=== PATIENT | male | born 1935 | race Caucasian/White ===

== ENCOUNTER 2021-04-02 19:38 | Observation (INO) | payer MEDICARE, SELFPAY ==
[2021-04-02] VITALS (7 sets, daily range): BP systolic 88–148; BP diastolic 53–78; PULSE 15–86; RESP 15–16; TEMP 36.9; O2SAT 97–99
--- NOTE | ~2021-04-02 | CT_ITS ---
EXAMINATION: CT brain wo con DATE: 04/02/2021 20:06 INDICATION: Altered mental status TECHNIQUE: Computed tomography (CT) of the head was performed without intravenous contrast. Sagittal and coronal reconstructions were performed. The mA was adjusted according to patient size. Iterative reconstruction technique was employed. The dose-length product was 681.00 mGy-cm. COMPARISON: head CT dated 11/27/2015 FINDINGS: No acute intracranial hemorrhage, acute infarction or abnormal extra axial fluid collection. There is mild scattered white matter hypoattenuation consistent with chronic small vessel ischemic disease. S ymmetric prominence of the sulci and ventricles consistent with moderate age-appropriate diffuse cere bral volume loss. No mass/mass effect. Changes of bilateral intraocular lens replacement. The orbits and mastoid air cells are normal. Mild mucosal thickening in the left maxillary sinus. No interval ch arnel in a couple likely benign small lucent lesions in the left parietal bone, the larger with post graduate intern al trabecular pattern suggesting hemangioma. Intracranial calcified cerebral atherosclerosis is noted . IMPRESSION: 1. No acute intracranial process. 2. Age-related changes including moderate diffuse volume loss and mild scattered white matter hypoatt enuation consistent with chronic small vessel ischemic disease. Reviewed, dictated and finalized at location A. IMPRESSION: 1. No acute intracranial process. 2. Age-related changes including moderate diffuse volume loss and mild scattere d white matter hypoattenuation consistent with chronic small vessel ischemic di sease.
--- NOTE | ~2021-04-02 | XR_ITS ---
EXAMINATION: XR chest 1V portable DATE: 04/02/2021 20:17 INDICATION: Altered mental status. TECHNIQUE: frontal view of the chest was obtained. COMPARISON: Chest radiograph dated 12/02/2015 FINDINGS: Unchanged calcified nodule at the right apex consistent with old granulomatous disease. No pulmonary edema, pleural effusion or pneumothorax. Cardiomegaly. Enlargement of the central pulmonary arteries consistent with pulmonary arterial hypertension. Stable appearance of superior mediastinal widening w ithout thickening of the right paratracheal stripe likely related to tortuosity of the great vessels arising from the aortic arch. Tortuous and atherosclerotic thoracic aorta. Severe left glenohumeral o steoarthritis. Partially visualized thoracolumbar posterior spinal fusion with bilateral vertical kaiden and screw fixation. IMPRESSION: 1. Cardiomegaly and enlargement of the central pulmonary arteries consistent with pulmonary arterial hypertension. Reviewed, dictated and finalized at location A. IMPRESSION: 1. Cardiomegaly and enlargement of the central pulmonary arteries consistent wi th pulmonary arterial hypertension.
--- NOTE | 2021-04-02 19:55 | ED.GENADULT ---
HPI - General Adult General Chief complaint: Altered Mental Status <Venu Deluna DO - Last Filed: 04/02/21 23:01> Stated complaint: AMS x 15 minutes <Venu Deluna DO - Last Filed: 04/02/21 23:01> Time Seen by Provider: 04/02/21 19:49 <Venu Deluna DO - Last Filed: 04/02/21 23:01> Source: RN notes reviewed <Venu Deluna DO - Last Filed: 04/02/21 23:01> History of Present Illness HPI narrative: Patient presents emergency department from home via EMS for altered mental status. Patient states that he took his evening meds this evening as well as a glass of wine he normally takes and sat down to watch the news. The states that when the rash initially looked over and the patient was slumped over and appeared to be unresponsive states she could not wake him up at that time called EMS. When EMS arrived the patient distally had a systolic blood pressure in the 80s which improved with 200 mL of fluid into the 120s per the patient and he has not been having problems with his blood pressure and medications have been being adjusted by his power plant technician Dr. Pedraza at [facility] patient denies any fevers or chills, chest pain abdominal pain nausea vomiting or any other symptoms <Venu Deluna DO - Last Filed: 04/02/21 23:01> Related Data Home medications: Home Medications Medication Instructions Recorded Confirmed atorvastatin 10 mg tablet 10 mg PO DAILY tablet 03/20/20 03/18/21 amlodipine 5 mg tablet 5 mg PO DAILY tablet 03/23/20 03/18/21 acetylcysteine (bulk) ea MISCELLANEOUS 03/02/21 apixaban 5 mg tablet 5 mg PO BID 03/02/21 03/18/21 clonidine HCl 0.3 mg tablet 0.3 mg PO BID tablet 03/02/21 03/18/21 coenzyme [id number] E 100 mg-100 cap PO 03/02/21 unit capsule glucosamine-chondroitin 1,500 mg ml PO 03/02/21 03/18/21 -1,200 mg/30 mL oral liquid grape seed extract 100 mg capsule 400 mg PO DAILY cap 03/02/21 03/18/21 memantine 10 mg tablet mg PO BID tablet 03/02/21 03/18/21 omega 4-ktb-hhm-fish oil 300 1 cap PO DAILY 03/02/21 mg-1,000 mg capsule,delayed release resveratrol 250 mg capsule mg PO 03/02/21 03/18/21 ropinirole 0.5 mg tablet 0.5 mg PO BID tablet 03/02/21 03/18/21 turmeric root extract 1,053 mg 1,076 mg PO DAILY 03/02/21 03/18/21 tablet vitamin E (dl, acetate) 400 unit 45 mg PO DAILY 03/02/21 03/18/21 capsule lisinopril 20 mg tablet 20 mg PO DAILY 03/17/21 03/18/21 <Venu Deluna DO - Last Filed: 04/02/21 23:01> Allergies/adverse reactions: Allergies Allergy/AdvReac Type Severity Reaction Status Date / Time No Known Allergies Allergy Unknown Verified 04/02/21 19:51 <Venu Deluna DO - Last Filed: 04/02/21 23:01> Review of Systems Review of Systems: Narrative: Gen.: Denies fevers or chills Eyes: Denies eye pain or visual change ENT: Denies congestion Respiratory: Denies shortness of breath or cough CV: Denies chest pain or palpitations GI: Denies abdominal pain nausea, emesis or diarrhea Musculoskeletal: Denies back pain or muscle pain Neuro: Reports unresponsive episode Skin: Denies rash Except as documented, all other systems reviewed and negative <Venu Deluna DO - Last Filed: 04/02/21 23:01> [facility] Past Medical History Medical History: Medical History Allergic rhinitis Alzheimer's dementia Atrial fibrillation BPH (benign prostatic hyperplasia) Chronic kidney disease, stage 3 Coronary artery disease Essential hypertension History of carotid artery disease MGUS (monoclonal gammopathy of unknown significance) Restless legs syndrome Sinus node dysfunction <Venu Deluna DO - Last Filed: 04/02/21 23:01> Surgical History Surgical History: Surgical History S/P carotid endarterectomy <DO Bonnie Hwang Last Filed: 04/02/21 23:01> Social History Social Histor
--- NOTE | 2021-04-02 20:04 | PC.NURSE ---
Pt in CT.
[2021-04-02 20:22] LABS: Basophils Absolute Auto 0.1 K/mm3 (0.0-0.1); Basophils Percent Auto 0.7 % (0.2-1.2); Eosinophils Absolute Auto 0.3 K/mm3 (0-0.3); Hematocrit 32.3 % (42.0-52.0); Hemoglobin 10.4 g/dL (14.0-18.0); Immature Granulocyte Absolute 0.04 K/mm3 (0.00-0.031); Immature Granulocyte Percent A 0.4 % (0-0.5); Lymphocytes Absolute Auto 0.91 K/mm3 (0.9-3.2); Lymphocytes Percent Auto 9.7 % (18.3-44.2); Mean Corpuscular HGB Conc 32.2 g/dl (32-36); Mean Corpuscular Hemoglobin 30.9 pg (26-34); Mean Corpuscular Volume 95.8 fl (80-100); Mean Platelet Volume 10.9 fl (7.4-10.4); Monocytes Absolute Auto 0.7 K/mm3 (0.1-0.6); Monocytes Percent Auto 7.2 % (2.6-8.5); Neutrophils Absolute Auto 7.5 K/mm3 (1.3-6.7); Platelet Count Result 206 k/mm3 (150-375); Red Blood Count 3.37 M/mm3 (4.6-6.20); Red Cell Distribution Width 14.2 % (11.5-14.5); White Blood Count 9.4 K/mm3 (4.5-10.0)
[2021-04-02 20:33] LABS: Alanine Aminotransferase 14 U/L (4-50); Albumin Level 3.6 g/dL (3.5-5.1); Alkaline Phosphatase 58 U/L (38-126); Anion Gap 9 mmol/L (8-16); Aspartate Amino Transferase 25 U/L (17-59); Bilirubin,Total 0.2 mg/dL (0.2-1.3); Blood Urea Nitrogen 21 mg/dL (9-20); Calcium 8.8 mg/dL (8.4-10.2); Carbon Dioxide 22 mmol/L (22-30); Chloride 109 mmol/L (98-107); Estimated CRCL calculation 43 ml/min; Estimated Glomerular Filt Rate 53; Ethanol < 10 mg/dL (<10); Glucose 96 mg/dL (75-110); Potassium 4.3 mmol/L (3.4-5.0); Sodium 140 mmol/L (137-145)
[2021-04-02 20:35] LABS: INR 1.3; Prothrombin Time 16.3 Seconds (11.1-14.7)
--- NOTE | 2021-04-02 20:35 | PC.NURSE ---
Pt made aware of need for urine sample. Urinal at bedside. Call light within reach.
[2021-04-02 20:48] LABS: Troponin I 0.148 ng/mL (0.000-0.034)
[2021-04-02 20:55] LABS: Add Urine Microscopic? YES; Appearance Urine Cloudy (Clear); Bilirubin Urine Negative (Negative); Blood Urine Negative (Negative); Color Urine Yellow (Yellow); Glucose Urine UA Negative (Negative); Ketones Urine Negative (Negative); Leukocyte Esterase Ur Negative LEU/UL (Negative); Mucus Urine Rare /lpf; Nitrate Urine Negative (Negative); Protein Urine 1+ mg/dL (Negative); RBC Urine 0-2 /hpf (0-2); Specific Grav Ur 1.013 (1.001-1.035); Squamous Epithelial Cell Urine Occasional /hpf (Few); Urobilinogen Urine Negative mg/dL (<2.0); WBC Urine 0-3 /hpf
[2021-04-02] MEDS: SODIUM CHLORIDE 0.9% IV 500 ML 999 ML IV CONT (21:35)
--- NOTE | 2021-04-02 22:39 | PC.NURSE ---
Pt was accepted to [facility]. No beds available at this time for admission. Unsure of when a bed may be available, but will not be tonight.
--- NOTE | 2021-04-02 22:41 | PC.NURSE ---
RUIZ FROM [facility] CALLED AND SAID THAT PATIENT HAS BEEN ACCEPTED AT [facility]. ACCEPTING DOCTOR IS DR. FLORES. WAITING FOR BED. DEFINITELY WILL NOT BE TONIGHT.
[2021-04-02 23:59] LABS: Troponin I 0.118 ng/mL (0.000-0.034)
[2021-04-03 00:43] VITALS: BP 134/55; PULSE 40; RESP 14; O2SAT 99
[2021-04-03 02:21] VITALS: BP 126/60; PULSE 42; RESP 14; O2SAT 99
[2021-04-03 03:49] LABS: Troponin I 0.071 ng/mL (0.000-0.034)
[2021-04-03 04:19] VITALS: BP 145/68; PULSE 41; RESP 18; O2SAT 96
--- NOTE | 2021-04-03 05:00 | PC.NURSE ---
0440: SPOKE WITH RUBIO AT [facility]. NO FLOOR BEDS AVAILABLE FOR AT LEAST 24 HOURS.
[2021-04-03 05:30] VITALS: BP 147/62; PULSE 45; RESP 16; TEMP 36.4; O2SAT 95; BMI 29.5
[2021-04-03 05:38] VITALS: BMI 29.5
--- NOTE | 2021-04-03 05:41 | ADMGEN ---
This patient, Robbin Newby, was admitted to 3 [facility] Surg Room 303-01. Patient/family oriented to hospital policies and general routines including ID bracelet, bed and alarms, visiting hours, pain management, procedures, bathroom and other care routines, personal items, smoking policy, room service/diet, and visiting hours. Information on how to activate the Rapid Response Team has been discussed. Patient/Family are encouraged to report perceived risks to care and to ask questions if they do not understand what they are told or what they should do.
[2021-04-03 08:00] VITALS: PULSE 51
[2021-04-03 12:00] VITALS: PULSE 53
--- NOTE | 2021-04-03 12:56 | PM.SD2 ---
Same Day Admit/Disch: HPI History of Present Illness Chief complaint: Syncope, Elevated Troponin Narrative: Robbin Newby is a 85 year old male who was at his usual state of mind yesterday evening when he took his evening meds while watching TV and also was also drinking a glass of wine which he normally does. His then saw him slumped over and unresponsive confused difficult to wake up for which EMS was called. When EMS arrived his blood pressure was noted to be in 80s and was given a fluid bolus with immediate improvement. he also was back to his normal self with his blood pressure improvement. He was then brought into the ER. EKG was done which showed sinus bradycardia with no acute ST-T changes suggestive of ischemia. His further workup revealed mild anemia with hemoglobin of 10.4 and elevated troponin at 0.148. He however denied any chest pain or shortness of breath. He was planned to be transferred to [facility] however their nor beds available last night and hence was admitted to the hospital while waiting for the transfer. [facility] Past Medical History Medical History Allergic rhinitis Alzheimer's dementia Atrial fibrillation BPH (benign prostatic hyperplasia) Chronic kidney disease, stage 3 Coronary artery disease Essential hypertension History of carotid artery disease MGUS (monoclonal gammopathy of unknown significance) Restless legs syndrome Sinus node dysfunction Surgical History Surgical History S/P carotid endarterectomy Social History Social History Smoking packs per day: 2.5 Smoking cigarettes per day: 50.0 Years smoked: 20 Smoking pack-years: 50.00 Smoking status: Former smoker Tobacco type: cigarettes Second hand tobacco smoke exposure: No Smoking end date: 09/19/81 Alcohol intake: current Drinks per week: 5 Substance use: never Substance use type: does not use Spiritual care concerns: No Same Day Admit/Disch: Med Pre-admit Medications Home Medications Medication Instructions Recorded Confirmed Type atorvastatin 10 mg tablet 10 mg PO DAILY tablet 03/20/20 04/03/21 History amlodipine 5 mg tablet 5 mg PO DAILY tablet 03/23/20 04/03/21 History finasteride 5 mg tablet 5 mg PO DAILY #90 tablet 02/17/21 04/03/21 Rx apixaban 5 mg tablet 5 mg PO BID 03/02/21 04/03/21 History clonidine HCl 0.3 mg tablet 0.3 mg PO BID tablet 03/02/21 04/03/21 History glucosamine-chondroitin 1,500 mg 30 ml PO BID 03/02/21 04/03/21 History -1,200 mg/30 mL oral liquid grape seed extract 100 mg capsule 400 mg PO HS cap 03/02/21 04/03/21 History memantine 10 mg tablet 10 mg PO BID tablet 03/02/21 04/03/21 History resveratrol 250 mg capsule 4,000 mg PO BID 03/02/21 04/03/21 History ropinirole 0.5 mg tablet 0.5 mg PO BID tablet 03/02/21 04/03/21 History vitamin E (dl, acetate) 400 unit 45 mg PO DAILY 03/02/21 04/03/21 History capsule lisinopril 20 mg tablet 20 mg PO DAILY 03/17/21 04/03/21 History Acetyl L-Carnitine 1,200 mg PO DAILY 04/03/21 04/03/21 History Mature Adult Century 1 tablet PO DAILY 04/03/21 04/03/21 History F-Ojwbha-E-Cysteine 1 cap BYMOUTH HS 04/03/21 04/03/21 History alpha lipoic acid 600 mg PO DAILY 04/03/21 04/03/21 History ascorbic acid (vitamin C) 1,000 mg PO DAILY 04/03/21 04/03/21 History magnesium 500 mg PO DAILY 04/03/21 04/03/21 History mecobalamin (vitamin B12) 1,000 mcg PO DAILY 04/03/21 04/03/21 History tamsulosin 0.4 mg PO HS 04/03/21 04/03/21 History tyrosine [L-Tyrosine] 500 mg PO DAILY 04/03/21 04/03/21 History Exam Narrative: Exam Narrative: GENERAL: The patient is well developed, not in acute distress HEENT: Nonicteric sclerae, PERRLA, EOMI. Oropharynx clear. Moist mucous membranes. Conjunctivae appear well perfused. CHEST: Chest wall is nontender. HEART: sinus bradycardia, teleme
== END 2021-04-03 13:55 | disposition home or self-care (01) ==
LOC: ANHED 04-03 04:16 → ANH3MEDSUR 04-03 12:21
PROVIDERS: Emergency Medicine; Admitting Provider Internal Medicine; Emergency Provider Emergency Medicine; PCP Family Medicine; Visit Provider Internal Medicine
DX: R55 Syncope and collapse (principal); R77.8 Other specified abnormalities of plasma proteins; G30.9 Alzheimer's disease, unspecified; F02.80 Dementia in other diseases classified elsewhere, unspecified severity, without behavioral disturbance, psychotic disturbance, mood disturbance, and anxiety; I95.9 Hypotension, unspecified; I48.91 Unspecified atrial fibrillation; I12.9 Hypertensive chronic kidney disease with stage 1 through stage 4 chronic kidney disease, or unspecified chronic kidney disease; N18.30 Chronic kidney disease, stage 3 unspecified; I49.5 Sick sinus syndrome; I25.10 Atherosclerotic heart disease of native coronary artery without angina pectoris; N40.0 Benign prostatic hyperplasia without lower urinary tract symptoms; D47.2 Monoclonal gammopathy; G25.81 Restless legs syndrome; Z87.891 Personal history of nicotine dependence; Z79.01 Long term (current) use of anticoagulants; Z79.899 Other long term (current) drug therapy
CPT/HCPCS: 36415; 70450; 71045; 80053; 80307; 81001; 84484; 85025; 85610; 85730; 96360; 99285; G0378; J7040

== ENCOUNTER 2022-04-12 12:09 | Outpatient (RCR) | payer MEDICARE, SELFPAY ==
[2022-04-12 13:19] VITALS: BP 113/54; PULSE 59; TEMP 35.8; O2SAT 99
[2022-04-12] MEDS: ACETAMINOPHEN 325 MG TABLET 650 MG PO (13:20)
[2022-04-12] MEDS: diphenhydrAMINE HCl CAP 25 MG CAPSULE PO (13:21)
[2022-04-12] MEDS: FAMOTIDINE 20 MG TABLET PO (13:21)
[2022-04-12] MEDS: BEBTELOVIMAB 175 MG/2 ML VIAL IV PUSH (13:42)
[2022-04-12 14:21] VITALS: BP 110/50; PULSE 60; O2SAT 99
== END 2022-04-12 16:00 ==
LOC: AMCINF 12:09
PROVIDERS: PCP Family Medicine; Referring Provider Family Medicine; Visit Provider Internal Medicine Hematology & Oncology
DX: U07.1 COVID-19 (principal); I10 Essential (primary) hypertension; I25.10 Atherosclerotic heart disease of native coronary artery without angina pectoris
CPT/HCPCS: A9270; M0222; Q0222

== ENCOUNTER 2023-02-14 16:41 | Emergency (ER) | payer MEDICARE, SELFPAY ==
[2023-02-14] VITALS (15 sets, daily range): BP systolic 118–174; BP diastolic 52–85; PULSE 53–66; RESP 15–33; TEMP 36.6; O2SAT 95–100
--- NOTE | ~2023-02-14 | XR_ITS ---
EXAMINATION: XR chest 1V portable DATE: 02/14/2023 16:58 INDICATION: Near syncopal event with lightheadedness and dizziness TECHNIQUE: frontal view of the chest was obtained. COMPARISON: Chest radiograph dated 04/02/2021 FINDINGS: Calcified right apical nodule consistent with old granulomatous disease. No other airspace opacities, pulmonary edema, pleural effusion or pneumothorax. Cardiomegaly. Tortuous thoracic aorta. Enlargemen t of the central pulmonary arteries which can be seen with pulmonary arterial hypertension. Left pect oral implantable quality assurance monitor chassis. Bilateral vertical kaiden and pedicle screw fixation for posterior spi nal fusion beginning in the lower thoracic spine and extending beyond the caudal margin of the field- of-view. IMPRESSION: 1. . Dramatically with enlargement of the central pulmonary arteries consistent with pulmonary arteri al hypertension. Reviewed, dictated and finalized at location A. IMPRESSION: 1. . Dramatically with enlargement of the central pulmonary arteries consistent with pulmonary arterial hypertension.
--- NOTE | 2023-02-14 16:46 | ECG_ITS ---
Measurements Intervals [place] Rate: 56 P: 65 TN: 282 QRS: 117 QRSD: 118 T: 55 QT: 410 QTc: 398 Interpretive Statements SINUS BRADYCARDIA WITH FIRST DEGREE AV BLOCK ATRIAL PREMATURE COMPLEX RIGHT AXIS DEVIATION INTRAVENTRICULAR CONDUCTION DELAY CANNOT RULE OUT SEPTAL INFARCT, AGE INDETERMINATE BASELINE ARTIFACT- AVR, AVL ABNORMAL ECG NO PREVIOUS ECG AVAILABLE FOR COMPARISON Electronically Signed On 02-14-2023 21:19:16 CDT by Octavio Castro D.O.
--- NOTE | 2023-02-14 16:46 | ED.SYNCOPE ---
HPI - Syncope General Chief Complaint: Syncope Stated Complaint: syncopal episode Time Seen by Provider: 02/14/23 16:45 Source: patient, family and EMS Mode of arrival: EMS Limitations: no limitations History of Present Illness HPI narrative: Patient is 87 years old white male came from home by ambulance because of syncope. Patient just finished his meal, turned around to get something, within 30 seconds patient slumped over, unresponsive for 10 minutes. Patient became responsive on the EMT stretcher. He is telling me that before blacking out felt like he is going to blackout and did not feel well. He denied any chest pain or shortness of breath at that time. Patient had similar symptoms 2 years ago and currently have loop recorder for the last 2 years. Currently patient is asymptomatic, denies any fever, chills, nausea, vomiting, chest pain, shortness of breath, back pain, headache, focal neurodeficit. Patient Eliquis for atrial fibrillation. His school aide and electrophysiological study physician at [facility]. The patient and his family requested to be transferred to [facility]. Related Data Home Medications Medication Instructions Recorded Confirmed atorvastatin 10 mg tablet 10 mg PO DAILY 03/20/20 11/03/22 amlodipine 5 mg tablet 5 mg PO DAILY 03/23/20 11/03/22 apixaban 5 mg tablet (Eliquis) 5 mg PO BID 03/02/21 11/03/22 glucosamine-chondroitin 1,500 mg 30 ml PO BID 03/02/21 11/03/22 -1,200 mg/30 mL oral liquid memantine 10 mg tablet 10 mg PO BID 03/02/21 11/03/22 resveratrol 250 mg capsule 4,000 mg PO BID 03/02/21 11/03/22 vitamin E (dl, acetate) 180 mg 45 mg PO DAILY 03/02/21 11/03/22 (400 unit) capsule Acetyl L-Carnitine 1,200 mg PO DAILY 04/03/21 11/03/22 Mature Adult Century 1 tablet PO DAILY 04/03/21 11/03/22 H-Ranqwg-Z-Cysteine 1 cap BYMOUTH 04/03/21 11/03/22 alpha lipoic acid 600 mg tablet 600 mg PO DAILY 04/03/21 11/03/22 ascorbic acid (vitamin C) 1,000 mg PO DAILY 04/03/21 11/03/22 magnesium 500 mg PO DAILY 04/03/21 11/03/22 mecobalamin (vitamin B12) 1,000 1,000 mcg PO DAILY 04/03/21 11/03/22 mcg chewable tablet tyrosine 500 mg tablet 500 mg PO DAILY 04/03/21 11/03/22 turmeric root extract 1,053 mg 1,076 mg PO DAILY 04/24/21 11/03/22 tablet zinc 50 mg tablet 50 mg PO DAILY 04/24/21 11/03/22 lisinopril 20 mg tablet 40 mg PO DAILY 08/10/21 11/03/22 Allergies Allergy/AdvReac Type Severity Reaction Status Date / Time No Known Allergies Allergy Unknown Verified 11/03/22 14:57 Review of Systems Review of Systems: All systems reviewed & are unremarkable except as noted in HPI and below PMFSH Past Medical History Medical History Allergic rhinitis Alzheimer's dementia Atrial fibrillation BPH (benign prostatic hyperplasia) Chronic kidney disease, stage 3 Coronary artery disease Essential hypertension History of carotid artery disease MGUS (monoclonal gammopathy of unknown significance) Muscle cramp, nocturnal Restless legs syndrome Sinus node dysfunction Stasis dermatitis of both legs Surgical History Surgical History S/P carotid endarterectomy Social History Social History Smoking packs per day: 2.5 Smoking cigarettes per day: 50.0 Years smoked: 20 Smoking pack-years: 50.00 Smoking status: Former smoker Tobacco type: cigarettes Second hand tobacco smoke exposure: No Smoking end date: 09/19/81 Alcohol intake: current Drinks per week: 5 Substance use: never Substance use type: does not use Lack of Transportation: No Lack of Food: Never True Current Housing: I Have Housing Concerned About Future Housing: No Difficulty Paying Gas/Electric Bills: No Difficulty Paying for Meds: No Currently Unemployed: No Difficulty w/ Childcare or Family Care: No Living arrangements: with family
[2023-02-14 16:47] LABS: Glucose Point of Care 140 mg/dl (65-105)
[2023-02-14] MEDS: SODIUM CHLORIDE 0.9% IV 1,000 ML 999 ML IV CONT (16:52)
[2023-02-14 16:56] LABS: Basophils Absolute Auto 0.1 K/mm3 (0.0-0.1); Basophils Percent Auto 0.9 % (0.2-1.2); Eosinophils Absolute Auto 0.4 K/mm3 (0-0.3); Eosinophils Percent Auto 5.2 % (0-4.4); Hematocrit 31.5 % (42.0-52.0); Hemoglobin 10.6 g/dL (14.0-18.0); Immature Granulocyte Absolute 0.02 K/mm3 (0.00-0.031); Immature Granulocyte Percent A 0.3 % (0-0.5); Lymphocytes Absolute Auto 1.09 K/mm3 (0.9-3.2); Lymphocytes Percent Auto 14.2 % (18.3-44.2); Mean Corpuscular HGB Conc 33.7 g/dl (32-36); Mean Corpuscular Hemoglobin 32.4 pg (26-34); Mean Corpuscular Volume 96.3 fl (80-100); Mean Platelet Volume 11.2 fl (7.4-10.4); Monocytes Absolute Auto 0.5 K/mm3 (0.1-0.6); Monocytes Percent Auto 6.8 % (2.6-8.5); Neutrophils Absolute Auto 5.6 K/mm3 (1.3-6.7); Neutrophils Percent Auto 72.6 % (45.5-73.1); Platelet Count Result 175 k/mm3 (150-375); Red Blood Count 3.27 M/mm3 (4.6-6.20); White Blood Count 7.7 K/mm3 (4.5-10.0)
[2023-02-14 17:06] LABS: Alanine Aminotransferase 18 U/L (6-50); Albumin Level 3.1 g/dL (3.5-5.1); Alkaline Phosphatase 60 U/L (38-126); Anion Gap 5 mmol/L (8-16); Aspartate Amino Transferase 25 U/L (17-59); Bilirubin,Total 0.3 mg/dL (0.2-1.3); Blood Urea Nitrogen 35 mg/dL (9-20); Calcium 7.4 mg/dL (8.4-10.2); Carbon Dioxide 21 mmol/L (22-30); Chloride 109 mmol/L (98-107); Estimated CRCL calculation 31 ml/min; Estimated Glomerular Filt Rate 41; Glucose 132 mg/dL (65-110); Potassium 4.6 mmol/L (3.4-5.0); Sodium 135 mmol/L (137-145)
[2023-02-14 17:28] LABS: Troponin I < 0.012 ng/mL (0.000-0.034)
== END 2023-02-14 19:44 | disposition short-term general hospital (02) ==
PROVIDERS: Emergency Provider Emergency Medicine; PCP Family Medicine
DX: R55 Syncope and collapse (principal); G30.9 Alzheimer's disease, unspecified; F02.80 Dementia in other diseases classified elsewhere, unspecified severity, without behavioral disturbance, psychotic disturbance, mood disturbance, and anxiety; I48.91 Unspecified atrial fibrillation; I25.10 Atherosclerotic heart disease of native coronary artery without angina pectoris; I10 Essential (primary) hypertension; I87.2 Venous insufficiency (chronic) (peripheral); N40.0 Benign prostatic hyperplasia without lower urinary tract symptoms; G25.81 Restless legs syndrome; Z87.891 Personal history of nicotine dependence; R00.1 Bradycardia, unspecified; I44.0 Atrioventricular block, first degree; I49.1 Atrial premature depolarization; I45.9 Conduction disorder, unspecified; R94.31 Abnormal electrocardiogram [ECG] [EKG]; I28.9 Disease of pulmonary vessels, unspecified; I51.7 Cardiomegaly
CPT/HCPCS: 36415; 71045; 80053; 82948; 84484; 85025; 93005; 96360; 99285; J7030

== ENCOUNTER 2023-06-10 16:59 | Outpatient (CLI) | payer MEDICARE, SELFPAY ==
--- NOTE | ~2023-06-10 | XR_ITS ---
XR hand RT min 3V DATE: 06/10/2023 17:28 INDICATION: Injury TECHNIQUE: 3 views COMPARISON: None FINDINGS: There is osteopenia. There is severe osteoarthritic change at the radiocarpal, first carpometacarpal and third metacarpoph alangeal joints. Moderately prominent osteophyte is at the second metacarpophalangeal joint. There is prominent scapholunate dissociation. No recent fracture or dislocation is evident. IMPRESSION: Osteopenia Polyarticular osteoarthritis Prominent scapholunate dissociation Reviewed, dictated and finalized at location A.
--- NOTE | ~2023-06-10 | XR_ITS ---
XR wrist RT min 3V DATE: 06/10/2023 17:28 INDICATION: Right wrist injury TECHNIQUE: 4 views COMPARISON: None FINDINGS: Diffuse osteopenia. Severe radiocarpal osteoarthritic change. There is prominent scapholunate dissociation at the capitat e articulating with the distal radius. Severe osteophytic change at the first carpometacarpal joint. No recent fracture or dislocation is noted. No periosteal reaction or bone destruction. IMPRESSION: Osteopenia Prominent scapholunate dissociation Polyarticular osteoarthritis Reviewed, dictated and finalized at location A.
== END 2023-06-10 17:00 | disposition home or self-care (01) ==
PROVIDERS: PCP Family Medicine; Visit Provider Family Medicine
DX: S69.91XA Unspecified injury of right wrist, hand and finger(s), initial encounter (principal); X58.XXXA Exposure to other specified factors, initial encounter; M85.831 Other specified disorders of bone density and structure, right forearm; M19.031 Primary osteoarthritis, right wrist; M85.841 Other specified disorders of bone density and structure, right hand; M19.041 Primary osteoarthritis, right hand
CPT/HCPCS: 73110; 73130

== ENCOUNTER 2023-11-11 13:02 | Observation (INO) | payer MEDICARE, SELFPAY ==
[2023-11-11] VITALS (17 sets, daily range): BP systolic 81–170; BP diastolic 47–99; PULSE 53–83; RESP 12–20; TEMP 36.3–36.6; O2SAT 91–100; BMI 28.3
--- NOTE | ~2023-11-11 | XR_ITS ---
Portable chest x-ray Comparison: 02/14/2023 Clinical History: Altered mental status Findings: Lungs are clear, without focal consolidation or pleural effusion. Cardiomediastinal silho uette is stable, with possible core. Stable thoracolumbar spinal fixation hardware. Impression: No acute abnormality seen. Reviewed, dictated and finalized at [facility]. ER OPERATOR Impression: No acute abnormality seen.
--- NOTE | ~2023-11-11 | CT_ITS ---
EXAMINATION: CT brain wo con INDICATION: Altered mental status, left-sided facial droop COMPARISON: 04/03/2021 TECHNIQUE: Standard unenhanced head CT. The dose-length product (DLP) was 681.00 mGy-cm. The mA was a djusted according to patient size. Iterative reconstruction technique was employed. FINDINGS: No acute intraparenchymal hemorrhage. No evidence of mass lesion. No evidence of acute infa rction. There is mild periventricular and subcortical hypodensity probably related to small vessel is chemic disease. There is mild prominence of the sulci and ventricles related to cerebral atrophy. Int racranial calcified cerebral atherosclerosis is noted. No extra-axial collections. No mass effect or midline shift. The orbits and soft tissues are unremarkable. The visualized sinuses and mastoid air c ells are well aerated. IMPRESSION: 1. No acute intracranial abnormality. 2. Age related findings. Reviewed, dictated and finalized at location B. R BLENDER
--- NOTE | ~2023-11-11 | MR_ITS ---
EXAMINATION: MR brain/brain stem wo/w con DATE: 11/13/2023 13:47 INDICATION: Patient unresponsive. TECHNIQUE: Magnetic resonance imaging (MRI) of the brain and brainstem was performed without and with 17 cc MultiHance intravenous contrast. Sequences included sagittal and axial T1-weighted SE, axial d iffusion-weighted FS SE, axial T2*-weighted GRE, axial T2-weighted FLAIR Propeller, and axial T2-weig hted Propeller. Apparent diffusion coefficient (ADC) maps were created. COMPARISON: CT dated 11/11/2023. FINDINGS: Generalized atrophy. No acute hemorrhage, infarction, mass or mass effect. No abnormal cont rast enhancement. There are scattered moderate periventricular and subcortical white matter changes, most likely related to small vessel ischemic disease (microangiopathy). Structures of the posterior f angela including 7/8th cranial nerve complexes are normal. Paranasal sinuses are unremarkable. Orbits a re symmetric without disconjugate gaze. IMPRESSION: 1. No acute intracranial abnormality. 2: Chronic age-related findings. Reviewed, dictated and finalized at location A. GATION TAX ASSESSOR COLLECTOR
--- NOTE | 2023-11-11 13:27 | ECG_ITS ---
Measurements Intervals [place] Rate: 65 P: 9 CO: 271 QRS: -63 QRSD: 107 T: 1 QT: 407 QTc: 425 Interpretive Statements SINUS RHYTHM WITH FIRST DEGREE AV BLOCK WITH FREQUENT SUPRAVENTRICULAR PREMATURE COMPLEXES LEFT ANTERIOR FASCICULAR BLOCK [QRS AXIS <= -45, QR IN I, RS IN II] ANTEROSEPTAL MYOCARDIAL INFARCTION , OF INDETERMINATE AGE [40+ ms Q WAVE IN V1-V4] ABNORMAL ECG COMPARED TO ECG 02/14/2023 16:42:37 SINUS RHYTHM NOW PRESENT LEFT ANTERIOR FASCICULAR BLOCK NOW PRESENT Electronically Signed On 11-12-2023 14:34:49 CRITICAL CARE NURSE PRACTITIONER by Ok Barnhart M.D.
[2023-11-11 15:03] LABS: Basophils Percent Auto 0.4 % (0.2-1.2); Hematocrit 29.5 % (42.0-52.0); Hemoglobin 9.4 g/dL (14.0-18.0); Immature Granulocyte Absolute 0.04 K/mm3 (0.00-0.031); Immature Granulocyte Percent A 0.4 % (0-0.5); Lymphocytes Absolute Auto 0.44 K/mm3 (0.9-3.2); Lymphocytes Percent Auto 4.7 % (18.3-44.2); Mean Corpuscular HGB Conc 31.9 g/dl (32-36); Mean Corpuscular Hemoglobin 31.4 pg (26-34); Mean Corpuscular Volume 98.7 fl (80-100); Mean Platelet Volume 11.3 fl (7.4-10.4); Monocytes Absolute Auto 0.9 K/mm3 (0.1-0.6); Monocytes Percent Auto 9.9 % (2.6-8.5); Neutrophils Absolute Auto 7.9 K/mm3 (1.3-6.7); Neutrophils Percent Auto 84.6 % (45.5-73.1); Platelet Count Result 219 k/mm3 (150-375); Red Blood Count 2.99 M/mm3 (4.6-6.20); Red Cell Distribution Width 14.6 % (11.5-14.5); White Blood Count 9.4 K/mm3 (4.5-10.0)
[2023-11-11 15:14] LABS: INR 1.8; Prothrombin Time 21.8 Seconds (11.1-14.7)
[2023-11-11 15:15] LABS: Partial Thromboplastin Time 40.9 SECONDS (22.3-36.8)
--- NOTE | 2023-11-11 15:19 | ED.AMS ---
HPI - Altered Mental Status General Chief Complaint: Altered Mental Status Stated Complaint: AMS Time Seen by Provider: 11/11/23 14:51 Source: family History of Present Illness HPI narrative: PATIENT IS 88 YEARS OLD WHITE MALE CAME TO THE EMERGENCY ROOM BY PRIVATE CAR WITH HIS IS TELLING ME THAT PATIENT WANT HIS FAMILY PHYSICIAN TODAY FOR HER YEARLY CHECKUP, NO SYMPTOMS, HAND WAS LOOK WEAKER THAN USUAL, UNABLE TO MANAGE USING HIS WALKER, SLOWER WALKING WITH HIS WALKER THAN USUAL, AT THE OFFICE WAS UNRESPONSIVE DOES NOT FOLLOW COMMANDS, WHILE SITTING ON THE CHAIR, LATER WAS ABLE TO WAKE UP AND DOES NOT RECOGNIZE HIS . HISTORY OF ALZHEIMER'S, HYPERTENSION, HYPERLIPIDEMIA ATRIAL FIBRILLATION ON ELIQUIS Related Data Home Medications Medication Instructions Recorded Confirmed atorvastatin 10 mg tablet 10 mg PO DAILY 03/20/20 11/11/23 apixaban 5 mg tablet (Eliquis) 5 mg PO BID 03/02/21 11/11/23 glucosamine-chondroitin 1,500 mg 30 ml PO BID 03/02/21 11/11/23 -1,200 mg/30 mL oral liquid memantine 10 mg tablet 10 mg PO BID 03/02/21 11/11/23 vitamin E (dl, acetate) 180 mg 45 mg PO DAILY 03/02/21 11/11/23 (400 unit) capsule Acetyl L-Carnitine 1,200 mg PO DAILY 04/03/21 11/11/23 Mature Adult Century 1 tablet PO DAILY 04/03/21 11/11/23 alpha lipoic acid 600 mg tablet 600 mg PO DAILY 04/03/21 11/11/23 ascorbic acid (vitamin C) 500 mg PO BID 04/03/21 11/11/23 tyrosine 500 mg tablet 500 mg PO DAILY 04/03/21 11/11/23 zinc 50 mg tablet 50 mg PO DAILY 04/24/21 11/11/23 lisinopril 20 mg tablet 40 mg PO DAILY 08/10/21 11/11/23 ropinirole 0.5 mg tablet 0.5 mg PO TID 09/30/23 11/11/23 trazodone 50 mg tablet 50 mg PO HS 11/11/23 11/11/23 Allergies Allergy/AdvReac Type Severity Reaction Status Date / Time oxycodone Allergy Hallucinati Verified 11/11/23 11:26 ng Review of Systems Review of Systems: ROS unobtainable: Yes unobtainable due to mental status PMFSH Past Medical History Medical History Allergic rhinitis Alzheimer's dementia Atrial fibrillation BPH (benign prostatic hyperplasia) Chronic kidney disease, stage 3 Coronary artery disease Essential hypertension History of carotid artery disease MGUS (monoclonal gammopathy of unknown significance) Muscle cramp, nocturnal Restless legs syndrome Sinus node dysfunction Stasis dermatitis of both legs Surgical History Surgical History S/P carotid endarterectomy Social History Social History Smoking packs per day: 2.5 Smoking cigarettes per day: 50.0 Years smoked: 20 Smoking pack-years: 50.00 Smoking status: Former smoker Alcohol intake: never Drinks per week: 5 Substance use: never Substance use type: does not use Lack of Transportation: No Lack of Food: Never True Current Housing: I Have Housing Concerned About Future Housing: No Difficulty Paying Gas/Electric Bills: No Difficulty Paying for Meds: No Currently Unemployed: No Difficulty w/ Childcare or Family Care: No Living arrangements: with family Occupation/Education: retired Gender identity (if verbalized by the patient): Male Sexual Orientation (if Verbalized by the Patient): Straight or Heterosexual Spiritual care concerns: No Agree to blood products: Yes Exam Narrative: GENERAL APPEARANCE: WELL-DEVELOPED, WELL-NOURISHED, SLEEPING, AROUSABLE SKIN: NORMAL COLOR HEAD: NORMOCEPHALIC, NONTRAUMATIC EYES: CLEAR CONJUNCTIVA ENT: OROPHARYNX NORMAL, EARS NORMAL, NOSE NORMAL NECK: SUPPLE, NONTENDER CHEST AND RESPIRATORY: AIRWAY PATENT, NO RESPIRATORY DISTRESS, NO ACCESSORY MUSCLE USE HEART: REGULAR RATE/RHYTHM ABDOMEN: SOFT, NONTENDER, NO ORGANOMEGALY, QUIET BOWEL SOUNDS VASCULAR: NORMAL PERIPHERAL PULSES, NORMAL CAPILLARY REFILL. MUSCULOSKELETAL: NORMAL RANGE OF MOTION, NONTENDER BACK NEUROLOGIC: ALERT A
[2023-11-11 15:20] LABS: Alanine Aminotransferase 14 U/L (6-50); Albumin Level 3.6 g/dL (3.5-5.1); Alkaline Phosphatase 94 U/L (38-126); Anion Gap 8 mmol/L (8-16); Aspartate Amino Transferase 23 U/L (17-59); Bilirubin,Total 0.5 mg/dL (0.2-1.3); Blood Urea Nitrogen 36 mg/dL (9-20); Calcium 8.8 mg/dL (8.4-10.2); Carbon Dioxide 24 mmol/L (22-30); Chloride 102 mmol/L (98-107); Estimated CRCL calculation 28 ml/min; Estimated Glomerular Filt Rate 36; Glucose 120 mg/dL (65-110); Potassium 4.4 mmol/L (3.4-5.0); Sodium 134 mmol/L (137-145)
[2023-11-11 15:35] LABS: Troponin I 0.062 ng/mL (0.000-0.034)
[2023-11-11] MEDS: SODIUM CHLORIDE 0.9% IV 2,800 ML/1,000 ML BAG 999 ML IV CONT ×3 (16:16→17:50)
[2023-11-11 16:34] LABS: CRP 3.7 mg/dL (<1.0)
--- NOTE | 2023-11-11 17:49 | ECG_ITS ---
Measurements Intervals [place] Rate: 84 P: 82 IN: 259 QRS: -67 QRSD: 115 T: 71 QT: 376 QTc: 447 Interpretive Statements SINUS RHYTHM WITH FIRST DEGREE AV BLOCK WITH FREQUENT SUPRAVENTRICULAR PREMATURE COMPLEXES LEFT ANTERIOR FASCICULAR BLOCK [QRS AXIS <= -45, QR IN I, RS IN II] POSSIBLE ANTERIOR MYOCARDIAL INFARCTION , OF INDETERMINATE AGE [30 ms Q WAVE IN V3/V4, OR R < 0.2 mV IN V4] ABNORMAL ECG COMPARED TO ECG 11/11/2023 14:49:49 NO SIGNIFICANT CHANGES Electronically Signed On 11-12-2023 14:36:25 WOOD PREPARATION SUPERVISOR by Ok Barnhart M.D.
[2023-11-11 18:45] LABS: Troponin I 0.052 ng/mL (0.000-0.034)
--- NOTE | 2023-11-11 19:36 | PC.NURSE ---
Report given to FLORIAN Lambert.
--- NOTE | 2023-11-11 19:45 | PC.NURSE ---
this rn assumed care of patient. this rn took patient report from daryl wetzel.
[2023-11-11 19:55] LABS: Appearance Urine Cloudy (Clear); Bacteria Urine 4+ /hpf; Bilirubin Urine Negative (Negative); Blood Urine Negative (Negative); Color Urine Yellow (Yellow); Glucose Urine UA Negative (Negative); Ketones Urine Negative (Negative); Leukocyte Esterase Ur Trace LEU/UL (Negative); Nitrate Urine Negative (Negative); Non Pathogenic Casts 0-2; Protein Urine 1+ mg/dL (Negative); RBC Urine 0-2 /hpf (0-2); Specific Grav Ur 1.014 (1.001-1.035); Squamous Epithelial Cell Urine None seen /hpf (Few); Urobilinogen Urine 0.2 mg/dL (<2.0); WBC Urine 21-50 /hpf
--- NOTE | 2023-11-11 19:56 | PC.NURSE ---
this rn took patient report from daryl wetzel. this rn assumed care of patient.
[2023-11-11 20:00] LABS: Add Urine Microscopic? YES
--- NOTE | 2023-11-11 20:34 | PM.IMHP ---
H&P: HPI History of Present Illness Date/Time: 11/11/23 20:34 Chief Complaint: altered mental status Narrative: This is an 88-year-old male with past medical history significant for hypertension, dementia, restless legs syndrome, BPH. Patient's took him to primary care physician's office due to concerns for patient's generalized weakness he usually uses a walker as a walking aid. Patient was brought to the emergency room after he had episode of confusion, disorientation, memory lapse while in the primary care physician's office could not recognize his . Here preliminary workup was unrevealing for stroke. Urine was significant for 20-50 white blood cells per high-power field. Patient has been admitted for further evaluation management and treatment. EXAMINATION: CT brain wo con ? INDICATION: Altered mental status, left-sided facial droop ? COMPARISON: 04/03/2021 TECHNIQUE: Standard unenhanced head CT. The dose-length product (DLP) was 681.00 mGy-cm. The mA was adjusted according to patient size. Iterative reconstruction technique was employed. ? FINDINGS: No acute intraparenchymal hemorrhage. No evidence of mass lesion. No evidence of acute infarction. There is mild periventricular and subcortical hypodensity probably related to small vessel ischemic disease. There is mild prominence of the sulci and ventricles related to cerebral atrophy. Intracranial calcified cerebral atherosclerosis is noted. No extra-axial collections. No mass effect or midline shift. The orbits and soft tissues are unremarkable. The visualized sinuses and mastoid air cells are well aerated. IMPRESSION: 1. No acute intracranial abnormality. 2. Age related findings. Portable chest x-ray Comparison: 02/14/2023 Clinical History: Altered mental status Findings:? Lungs are clear, without focal consolidation or pleural effusion.? Cardiomediastinal silhouette is stable, with possible core. Stable thoracolumbar spinal fixation hardware. ? Impression: ? No acute abnormality seen. Review of Systems Review of Systems: ROS unobtainable: Yes unobtainable due to mental status ( delirium) [facility] Past Medical History Medical History (Updated 11/12/23 @ 03:11 by Kannan Mehta MD) Allergic rhinitis Alzheimer's dementia Atrial fibrillation BPH (benign prostatic hyperplasia) Chronic kidney disease, stage 3 Coronary artery disease Essential hypertension History of carotid artery disease MGUS (monoclonal gammopathy of unknown significance) Muscle cramp, nocturnal Restless legs syndrome Sinus node dysfunction Stasis dermatitis of both legs Surgical History Surgical History S/P carotid endarterectomy Social History Social History Smoking packs per day: 2.5 Smoking cigarettes per day: 50.0 Years smoked: 20 Smoking pack-years: 50.00 Smoking status: Former smoker Tobacco type: cigarettes Second hand tobacco smoke exposure: No Alcohol intake: former Drinks per week: 5 Substance use: never Substance use type: does not use Lack of Transportation: No Lack of Food: Never True Current Housing: I Have Housing Concerned About Future Housing: No Difficulty Paying Gas/Electric Bills: No Difficulty Paying for Meds: No Currently Unemployed: No Difficulty w/ Childcare or Family Care: No Living arrangements: with family Occupation/Education: retired Gender identity (if verbalized by the patient): Male Sexual Orientation (if Verbalized by the Patient): Straight or Heterosexual Spiritual care concerns: No Agree to blood products: Yes Meds Home Medications and Allergies Home Medications Medication Instructions Recorded Confirmed Type atorvastatin 10 mg tablet 10 mg PO DAILY 03/20/20 11/11/23 History apixaban 5 mg tablet (Eliquis) 5 mg PO Q12H 03/02/21 11/11/23 History glucosamine-chondroit
[2023-11-11] MEDS: SODIUM CHLORIDE 0.9% IV 1,000 ML 75 ML IV CONT (21:22)
--- NOTE | 2023-11-11 21:30 | PC.NURSE ---
this rn attempted to call report to FLORIAN Jones who was stated to call this rn back.
[2023-11-11 21:33] LABS: Troponin I 0.046 ng/mL (0.000-0.034)
--- NOTE | 2023-11-11 22:00 | PC.NURSE ---
This patient, Robbin Newby, was admitted to IMU Room 205-02 at 2153. Patient/family oriented to hospital policies and general routines including ID bracelet, bed and alarms, visiting hours, pain management, procedures, bathroom and other care routines, personal items, smoking policy, room service/diet, and visiting hours. Information on how to activate the Rapid Response Team has been discussed. Patient/Family are encouraged to report perceived risks to care and to ask questions if they do not understand what they are told or what they should do.
[2023-11-12] VITALS (13 sets, daily range): BP systolic 134–175; BP diastolic 62–95; PULSE 54–77; RESP 16–24; TEMP 36.3–37.1; O2SAT 93–99
--- NOTE | 2023-11-12 07:30 | PC.NURSE ---
Left message for Nora asking for information about loop recorder to proceed with MRI.
--- NOTE | 2023-11-12 08:26 | PM.IMPN ---
Progress Note: A&P Assessment and Plan (1) Altered mental status: Code(s): R41.82 - Altered mental status, unspecified Status: Acute (2) CEE (acute kidney injury): Code(s): N17.9 - Acute kidney failure, unspecified Status: Acute (3) Urinary tract infection: Code(s): N39.0 - Urinary tract infection, site not specified Status: Acute (4) Gait abnormality: Code(s): R26.9 - Unspecified abnormalities of gait and mobility Status: Acute Plan This is an 88-year-old male with past medical history significant for hypertension, dementia, restless legs syndrome, BPH.? Patient's took him to primary care physician's office due to concerns for patient's generalized weakness he usually uses a walker as a walking aid.? Patient was brought to the emergency room after he had episode of confusion, disorientation, memory lapse while in the primary care physician's office could not recognize his .? Here preliminary workup was unrevealing for stroke.? Urine was significant for 20-50 white blood cells per high-power field. Acute metabolic encephalopathy Patient has history of dementia, altered mental status likely resulting from UTI, acute renal failure, and polypharmacy ?Code(s): CT of head shows no acute intracranial issues Neuro check Treat underlying diseases Consult PT OT care center manager for evaluation and assisting placement (2) Urinary tract infection: ?Code(s): N39.0 - Urinary tract infection, site not specified ?Status:?Acute ?Assessment and Plan: Patient started on antibiotics Await cultures (3) CEE (acute kidney injury): ?Code(s): N17.9 - Acute kidney failure, unspecified ?Status:?Acute ?Assessment and Plan: Gentle hydration Continue to monitor BUN and creatinine (4) Gait abnormality: ?Code(s): R26.9 - Unspecified abnormalities of gait and mobility ?Status:?Acute ?Assessment and Plan: Likely secondary to deconditioning and debility PT OT as needed Pending brain MR (5) GERD (gastroesophageal reflux disease): ?Code(s): K21.9 - Gastro-esophageal reflux disease without esophagitis ?Status:?Acute ?Assessment and Plan: PPI (6) Alzheimer's dementia: ?Code(s): G30.9 - Alzheimer's disease, unspecified; F02.80 - Dementia in other diseases classified elsewhere, unspecified severity, without behavioral disturbance, psychotic disturbance, mood disturbance, and anxiety ?Status:?Acute ?Assessment and Plan: ?continue memantine Hypertension Continue amlodipine 5 mg daily p.o., lisinopril 20 mg daily p.o. Subjective Date/time seen: 11/12/23 08:26 Interval history: I saw and exam patient today, patient has no obvious distress, poor historian, unable to provide reliable history. Patient is afebrile overnight, blood pressure stable, pulse ox 95 on room air. Exam Narrative: GENERAL: in no acute distress. Well-nourished. - EYES: EOMI. Anicteric. - HENT: dry mucous membranes. - LUNGS: Clear to auscultation bilaterally, no wheezing, rhonchi, or rales. - CARDIOVASCULAR: Regular rate and rhythm. No murmur. No JVD. - ABDOMEN: Soft, non-tender and non-distended. No palpable masses. - EXTREMITIES: No edema. Peripheral pulses 2+. Non-tender. - NEUROLOGIC: Moving all extremities, - PSYCHIATRIC: Awake, Alert and not oriented x 3. Appropriate mood and affect. - SKIN: No rashes or lesions. Warm. - LYMPH: No cervical lymphadenopathy. Objective Data Vital Signs Vital Signs: Vital Signs - 24 hr 11/11/23 13:08 11/11/23 14:53 11/11/23 15:31 Temperature 97.8 F Pulse Rate 83 66 61 Respiratory Rate 14 18 14 Blood Pressure 141/66 H 127/63 131/62 Pulse Oximetry 94 98 Oxygen Delivery 11/11/23 15:46 11/11/23 17:18 11/11/23 17:31 Temperature Pulse Rate 63 78 78 Respiratory Rate 19 17 20 Blood Pressure 147/67 H 154/88 H 139/99 H Pulse Oximetry 100 Oxygen Delivery 11/11/23
[2023-11-12 09:15] LABS: Hematocrit 26.8 % (42.0-52.0); Hemoglobin 8.2 g/dL (14.0-18.0); Mean Corpuscular HGB Conc 30.6 g/dl (32-36); Mean Corpuscular Hemoglobin 30.4 pg (26-34); Mean Corpuscular Volume 99.3 fl (80-100); Mean Platelet Volume 12.1 fl (7.4-10.4); Platelet Count Result 188 k/mm3 (150-375); Red Cell Distribution Width 14.4 % (11.5-14.5); White Blood Count 6.9 K/mm3 (4.5-10.0)
[2023-11-12] MEDS: APIXABAN 2.5 MG TABLET BY MOUTH ×2 (09:22→21:07)
[2023-11-12] MEDS: MULTIVITAMINS /C LUTEIN (CENTRUM SILVER) TABLET *BKC 1 TAB PO (09:22)
[2023-11-12] MEDS: FINASTERIDE 5 MG TABLET PO (09:22)
[2023-11-12] MEDS: lisinopriL 20 MG TABLET PO (09:22)
[2023-11-12] MEDS: FERROUS SULFATE 325 MG TABLET DR PO ×2 (09:22→18:03)
[2023-11-12] MEDS: rOPINIRole HCL 0.5 MG TABLET PO (09:22)
[2023-11-12] MEDS: MEMANTINE 10 MG TABLET PO ×2 (09:23→21:07)
[2023-11-12] MEDS: amLODIPine BESYLATE 5 MG TABLET PO (09:23)
[2023-11-12 09:32] LABS: Alanine Aminotransferase 13 U/L (6-50); Albumin Level 2.9 g/dL (3.5-5.1); Alkaline Phosphatase 79 U/L (38-126); Anion Gap 4 mmol/L (8-16); Aspartate Amino Transferase 31 U/L (17-59); Bilirubin,Total 0.3 mg/dL (0.2-1.3); Blood Urea Nitrogen 33 mg/dL (9-20); Calcium 8.5 mg/dL (8.4-10.2); Carbon Dioxide 23 mmol/L (22-30); Chloride 106 mmol/L (98-107); Estimated CRCL calculation 38 ml/min; Estimated Glomerular Filt Rate 52; Glucose 90 mg/dL (65-110); Sodium 133 mmol/L (137-145)
--- NOTE | 2023-11-12 12:32 | PCSTNOTE ---
Bedside swallowing evaluation completed. present at bedside. Cursory oral peripheral examination results within functional limits. Patient is NPO except for meds with sips at this time. Nurse reports that she has not observed any swallowing difficulty when administering pills. Trials of thin liquid by spoon, cup, and straw; pureed consistency by spoon, and solid consistency by hand were given. Patient demonstrated no signs of aspiration with any consistency. Recommendations: soft and bite sized diet and thin liquids (soft and bite sized is easier to chew and patient receives this type of diet at home.) Swallowing precaution recommendations placed in chart. No further speech therapy is recommended at this time. Thank you for the referral of this patient.
[2023-11-12] MEDS: SODIUM CHLORIDE 0.9% IV 1,000 ML 100 ML IV CONT (12:38)
[2023-11-12] MEDS: TAMSULOSIN HCL 0.4 MG CAPSULE PO (21:07)
[2023-11-12] MEDS: ATORVASTATIN 10 MG TABLET PO (21:07)
[2023-11-12] MEDS: rOPINIRole HCL 1 MG TABLET PO (21:07)
[2023-11-13] MEDS: SODIUM CHLORIDE 0.9% IV 1,000 ML 100 ML IV CONT (03:45)
[2023-11-13 04:50] LABS: Toxigenic C. Diff NEGATIVE (NEGATIVE)
[2023-11-13] MEDS: lisinopriL 20 MG TABLET PO (06:33)
[2023-11-13] MEDS: amLODIPine BESYLATE 5 MG TABLET PO (06:34)
[2023-11-13] MEDS: APIXABAN 2.5 MG TABLET BY MOUTH ×2 (08:14→20:14)
[2023-11-13] MEDS: FERROUS SULFATE 325 MG TABLET DR PO ×2 (08:14→16:20)
[2023-11-13] MEDS: MEMANTINE 10 MG TABLET PO ×2 (08:14→20:14)
[2023-11-13] MEDS: FINASTERIDE 5 MG TABLET PO (08:14)
[2023-11-13] MEDS: MULTIVITAMINS /C LUTEIN (CENTRUM SILVER) TABLET *BKC 1 TAB PO (08:14)
[2023-11-13] MEDS: rOPINIRole HCL 0.5 MG TABLET PO (08:14)
[2023-11-13 09:50] LABS: Basophils Absolute Auto 0.1 K/mm3 (0.0-0.1); Basophils Percent Auto 0.8 % (0.2-1.2); Eosinophils Absolute Auto 0.1 K/mm3 (0-0.3); Eosinophils Percent Auto 1.6 % (0-4.4); Hematocrit 31.3 % (42.0-52.0); Hemoglobin 9.9 g/dL (14.0-18.0); Immature Granulocyte Absolute 0.04 K/mm3 (0.00-0.031); Immature Granulocyte Percent A 0.5 % (0-0.5); Lymphocytes Absolute Auto 0.75 K/mm3 (0.9-3.2); Lymphocytes Percent Auto 9.7 % (18.3-44.2); Mean Corpuscular HGB Conc 31.6 g/dl (32-36); Mean Corpuscular Hemoglobin 30.6 pg (26-34); Mean Corpuscular Volume 96.6 fl (80-100); Mean Platelet Volume 11.7 fl (7.4-10.4); Monocytes Absolute Auto 0.9 K/mm3 (0.1-0.6); Monocytes Percent Auto 11.4 % (2.6-8.5); Neutrophils Absolute Auto 5.9 K/mm3 (1.3-6.7); Platelet Count Result 244 k/mm3 (150-375); Red Blood Count 3.24 M/mm3 (4.6-6.20); White Blood Count 7.7 K/mm3 (4.5-10.0)
[2023-11-13 10:02] LABS: Anion Gap 8 mmol/L (8-16); Blood Urea Nitrogen 23 mg/dL (9-20); Calcium 8.9 mg/dL (8.4-10.2); Carbon Dioxide 22 mmol/L (22-30); Chloride 104 mmol/L (98-107); Estimated CRCL calculation 44 ml/min; Estimated Glomerular Filt Rate > 60; Glucose 114 mg/dL (65-110); Magnesium 2.1 mg/dL (1.6-2.3); Phosphorus 3.6 mg/dL (2.5-4.5); Potassium 3.9 mmol/L (3.4-5.0); Sodium 134 mmol/L (137-145)
--- NOTE | 2023-11-13 12:02 | PC.NURSE ---
Dr. Neff on floor, made aware patient left eye noted to be red and small amount of clear drainage, patient observed to have BM on hands this Am, patient confused and could have potentially rubbed BM in eyes, hand hygiene performed. N.O received.
[2023-11-13 14:00] VITALS: BP 152/62; PULSE 85; RESP 16; TEMP 36.8; O2SAT 96
[2023-11-13] MEDS: MOXIFLOXACIN HCL 0.5% 3 ML OPHTH SOLN 1 DROP LEFT EYE (16:20)
--- NOTE | 2023-11-13 16:57 | PM.IMPN ---
Progress Note: A&P Assessment and Plan (1) Altered mental status: Code(s): R41.82 - Altered mental status, unspecified Status: Acute (2) CEE (acute kidney injury): Code(s): N17.9 - Acute kidney failure, unspecified Status: Acute (3) Urinary tract infection: Code(s): N39.0 - Urinary tract infection, site not specified Status: Acute (4) Gait abnormality: Code(s): R26.9 - Unspecified abnormalities of gait and mobility Status: Acute Plan This is an 88-year-old male with past medical history significant for hypertension, dementia, restless legs syndrome, BPH.? Patient's took him to primary care physician's office due to concerns for patient's generalized weakness he usually uses a walker as a walking aid.? Patient was brought to the emergency room after he had episode of confusion, disorientation, memory lapse while in the primary care physician's office could not recognize his .? Here preliminary workup was unrevealing for stroke.? Urine was significant for 20-50 white blood cells per high-power field. (1) Acute metabolic encephalopathy Patient has history of dementia, altered mental status likely resulting from UTI, acute renal failure, and polypharmacy ?Code(s): CT of head shows no acute intracranial issues Neuro check Treat underlying diseases Consult PT OT restorative care technician for evaluation and assisting placement (2) Urinary tract infection: ?Code(s): N39.0 - Urinary tract infection, site not specified ?Status:?Acute ?Assessment and Plan: Patient started on antibiotics Await cultures WBC count is stable (3) CEE (acute kidney injury): ?Code(s): N17.9 - Acute kidney failure, unspecified ?Status:?Acute ?Assessment and Plan: Gentle hydration Continue to monitor BUN and creatinine Renal function slowly improving Strict input and output monitoring (4) Gait abnormality: ?Code(s): R26.9 - Unspecified abnormalities of gait and mobility ?Status:?Acute ?Assessment and Plan: Likely secondary to deconditioning and debility PT OT as needed Brain MRI done which ruled out any intracranial abnormality or bleeding. Patient has chronic age-related changes (5) GERD (gastroesophageal reflux disease): ?Code(s): K21.9 - Gastro-esophageal reflux disease without esophagitis ?Status:?Acute ?Assessment and Plan: PPI (6) Alzheimer's dementia: ?Code(s): G30.9 - Alzheimer's disease, unspecified; F02.80 - Dementia in other diseases classified elsewhere, unspecified severity, without behavioral disturbance, psychotic disturbance, mood disturbance, and anxiety ?Status:?Acute ?Assessment and Plan: ?continue memantine (7) Hypertension Continue amlodipine 5 mg daily p.o., lisinopril 20 mg daily p.o. ? Patient seen and examined at bedside during my morning rounds ? Collaborated with patient's nurse at the bedside in detail and addressed all concerns ? Labs, electrolytes, radiology, investigations and test results reviewed ? Consult/Nursing/Ancilliary notes on the chart reviewed and appreciated ? Spoke with patient/family at the bedside and answered all the questions that they had Repeat labs in a.m. Electrolyte replacement as per protocol. Patient will be monitored very closely on the floor. Further recommendations as per the hospital course. Time Spent With Patient Time with patient: 15 - 25 minutes Subjective Date/time seen: 11/13/23 16:57 Interval history: Patient seen and evaluated at bedside. Remains pleasantly confused the patient's and answered all the questions that she had. Patient complains of redness in the left eye with some itching. Review of Systems Review of Systems: Unable to be obtained. Patient is pleasantly confused ROS unobtainable: Yes unobtainable due to mental status ( delirium) Exam Narrative: GENERAL: in no acute distress. Well-nourished. - EYES: E
[2023-11-13] MEDS: ATORVASTATIN 10 MG TABLET PO (20:14)
[2023-11-13] MEDS: rOPINIRole HCL 1 MG TABLET PO (20:14)
[2023-11-13] MEDS: TAMSULOSIN HCL 0.4 MG CAPSULE PO (20:14)
[2023-11-13] MEDS: hydrALAZINE HCL 20 MG/ML VIAL 5 MG IV PUSH (21:06)
[2023-11-14] VITALS: BP 140/86; PULSE 82; RESP 19; TEMP 37.1; O2SAT 94
[2023-11-14] MEDS: lisinopriL 20 MG TABLET PO (05:37)
[2023-11-14] MEDS: amLODIPine BESYLATE 5 MG TABLET PO (05:37)
[2023-11-14] MEDS: SODIUM CHLORIDE 0.9% IV 1,000 ML 100 ML IV CONT ×3 (05:38→20:41)
[2023-11-14 08:46] VITALS: O2SAT 98
[2023-11-14 08:55] LABS: Basophils Absolute Auto 0.1 K/mm3 (0.0-0.1); Basophils Percent Auto 0.7 % (0.2-1.2); Eosinophils Absolute Auto 0.2 K/mm3 (0-0.3); Eosinophils Percent Auto 3.4 % (0-4.4); Hematocrit 29.2 % (42.0-52.0); Hemoglobin 9.2 g/dL (14.0-18.0); Immature Granulocyte Absolute 0.02 K/mm3 (0.00-0.031); Immature Granulocyte Percent A 0.3 % (0-0.5); Lymphocytes Percent Auto 11.3 % (18.3-44.2); Mean Corpuscular HGB Conc 31.5 g/dl (32-36); Mean Corpuscular Hemoglobin 30.1 pg (26-34); Mean Corpuscular Volume 95.4 fl (80-100); Mean Platelet Volume 11.6 fl (7.4-10.4); Monocytes Absolute Auto 0.9 K/mm3 (0.1-0.6); Monocytes Percent Auto 12.2 % (2.6-8.5); Neutrophils Absolute Auto 5.1 K/mm3 (1.3-6.7); Neutrophils Percent Auto 72.1 % (45.5-73.1); Platelet Count Result 224 k/mm3 (150-375); Red Blood Count 3.06 M/mm3 (4.6-6.20); Red Cell Distribution Width 14.1 % (11.5-14.5); White Blood Count 7.1 K/mm3 (4.5-10.0)
[2023-11-14] MEDS: MEMANTINE 10 MG TABLET PO ×2 (09:01→20:44)
[2023-11-14] MEDS: MULTIVITAMINS /C LUTEIN (CENTRUM SILVER) TABLET *BKC 1 TAB PO (09:01)
[2023-11-14] MEDS: FINASTERIDE 5 MG TABLET PO (09:01)
[2023-11-14] MEDS: FERROUS SULFATE 325 MG TABLET DR PO ×2 (09:01→16:16)
[2023-11-14] MEDS: APIXABAN 2.5 MG TABLET BY MOUTH ×2 (09:01→20:44)
[2023-11-14] MEDS: rOPINIRole HCL 0.5 MG TABLET PO (09:01)
[2023-11-14 09:06] LABS: Anion Gap 5 mmol/L (8-16); Blood Urea Nitrogen 18 mg/dL (9-20); Calcium 8.7 mg/dL (8.4-10.2); Carbon Dioxide 24 mmol/L (22-30); Chloride 107 mmol/L (98-107); Estimated CRCL calculation 48 ml/min; Estimated Glomerular Filt Rate > 60; Glucose 104 mg/dL (65-110); Potassium 3.6 mmol/L (3.4-5.0); Sodium 136 mmol/L (137-145)
[2023-11-14] MEDS: MOXIFLOXACIN HCL 0.5% 3 ML OPHTH SOLN 1 DROP LEFT EYE ×2 (11:00→16:19)
--- NOTE | 2023-11-14 17:05 | PM.IMPN ---
Progress Note: A&P Assessment and Plan (1) Altered mental status: Code(s): R41.82 - Altered mental status, unspecified Status: Acute (2) CEE (acute kidney injury): Code(s): N17.9 - Acute kidney failure, unspecified Status: Acute (3) Urinary tract infection: Code(s): N39.0 - Urinary tract infection, site not specified Status: Acute (4) Gait abnormality: Code(s): R26.9 - Unspecified abnormalities of gait and mobility Status: Acute Plan This is an 88-year-old male with past medical history significant for hypertension, dementia, restless legs syndrome, BPH.? Patient's took him to primary care physician's office due to concerns for patient's generalized weakness he usually uses a walker as a walking aid.? Patient was brought to the emergency room after he had episode of confusion, disorientation, memory lapse while in the primary care physician's office could not recognize his .? Here preliminary workup was unrevealing for stroke.? Urine was significant for 20-50 white blood cells per high-power field. (1) Acute metabolic encephalopathy Patient has history of dementia, altered mental status likely resulting from UTI, acute renal failure, and polypharmacy ?Code(s): CT of head shows no acute intracranial issues Neuro checks are stable Mentation improving slowly with treatment of underlying disease Consult PT OT memory care program resident for evaluation and assisting placement (2) Urinary tract infection: ?Code(s): N39.0 - Urinary tract infection, site not specified ?Status:?Acute ?Assessment and Plan: Continue with IV antibiotics Urine culture growing E coli... await culture sensitivities WBC count is stable (3) CEE (acute kidney injury): ?Code(s): N17.9 - Acute kidney failure, unspecified ?Status:?Acute ?Assessment and Plan: Gentle hydration Continue to monitor BUN and creatinine Renal function slowly improving Strict input and output monitoring (4) Gait abnormality: ?Code(s): R26.9 - Unspecified abnormalities of gait and mobility ?Status:?Acute ?Assessment and Plan: Likely secondary to deconditioning and debility PT OT as needed Brain MRI done which ruled out any intracranial abnormality or bleeding. Patient has chronic age-related changes (5) GERD (gastroesophageal reflux disease): ?Code(s): K21.9 - Gastro-esophageal reflux disease without esophagitis ?Status:?Acute ?Assessment and Plan: PPI (6) Alzheimer's dementia: ?Code(s): G30.9 - Alzheimer's disease, unspecified; F02.80 - Dementia in other diseases classified elsewhere, unspecified severity, without behavioral disturbance, psychotic disturbance, mood disturbance, and anxiety ?Status:?Acute ?Assessment and Plan: ?continue memantine (7) Hypertension Continue amlodipine 5 mg daily p.o., lisinopril 20 mg daily p.o. (8) bacterial conjunctivitis left eye Patient started on antibiotics eyedrops in the left eye b.i.d. Monitor patient closely DC planning to [facility] facility in once arrangements are done and the sensitivities of urine cultures are obtained ? Patient seen and examined at bedside during my morning rounds ? Collaborated with patient's nurse at the bedside in detail and addressed all concerns ? Labs, electrolytes, radiology, investigations and test results reviewed ? Consult/Nursing/Ancilliary notes on the chart reviewed and appreciated ? Spoke with patient/family at the bedside and answered all the questions that they had Repeat labs in a.m. Electrolyte replacement as per protocol. Patient will be monitored very closely on the floor. Further recommendations as per the hospital course. Time Spent With Patient Time with patient: 15 - 25 minutes Subjective Date/time seen: 11/14/23 17:05 Interval history: Patient lying in bed during my morning rounds. Feels better than yesterday. More alert mentally. Recei
[2023-11-14] MEDS: rOPINIRole HCL 1 MG TABLET PO (20:44)
[2023-11-14] MEDS: ATORVASTATIN 10 MG TABLET PO (20:44)
[2023-11-14] MEDS: TAMSULOSIN HCL 0.4 MG CAPSULE PO (20:45)
[2023-11-14 22:00] VITALS: BP 177/77; PULSE 74; RESP 16; TEMP 37.2; O2SAT 93
[2023-11-15 06:00] VITALS: BP 181/89; PULSE 70; RESP 14; TEMP 36.7; O2SAT 97
[2023-11-15] MEDS: APIXABAN 2.5 MG TABLET BY MOUTH ×2 (09:31→20:06)
[2023-11-15] MEDS: FERROUS SULFATE 325 MG TABLET DR PO ×2 (09:31→17:48)
[2023-11-15] MEDS: FINASTERIDE 5 MG TABLET PO (09:31)
[2023-11-15] MEDS: rOPINIRole HCL 0.5 MG TABLET PO (09:32)
[2023-11-15] MEDS: MEMANTINE 10 MG TABLET PO ×2 (09:32→20:06)
[2023-11-15] MEDS: MULTIVITAMINS /C LUTEIN (CENTRUM SILVER) TABLET *BKC 1 TAB PO (09:32)
[2023-11-15] MEDS: amLODIPine BESYLATE 5 MG TABLET PO (09:32)
[2023-11-15] MEDS: lisinopriL 20 MG TABLET PO (09:32)
[2023-11-15] MEDS: MOXIFLOXACIN HCL 0.5% 3 ML OPHTH SOLN 1 DROP LEFT EYE ×2 (09:32→17:49)
[2023-11-15 14:00] VITALS: BP 109/35; PULSE 77; RESP 16; TEMP 36.6; O2SAT 94
--- NOTE | 2023-11-15 17:53 | PM.IMPN ---
Progress Note: A&P Assessment and Plan (1) Altered mental status: Code(s): R41.82 - Altered mental status, unspecified Status: Acute (2) CEE (acute kidney injury): Code(s): N17.9 - Acute kidney failure, unspecified Status: Acute (3) Urinary tract infection: Code(s): N39.0 - Urinary tract infection, site not specified Status: Acute (4) Gait abnormality: Code(s): R26.9 - Unspecified abnormalities of gait and mobility Status: Acute Plan This is an 88-year-old male with past medical history significant for hypertension, dementia, restless legs syndrome, BPH.? Patient's took him to primary care physician's office due to concerns for patient's generalized weakness he usually uses a walker as a walking aid.? Patient was brought to the emergency room after he had episode of confusion, disorientation, memory lapse while in the primary care physician's office could not recognize his .? Here preliminary workup was unrevealing for stroke.? Urine was significant for 20-50 white blood cells per high-power field. (1) Acute metabolic encephalopathy Patient has history of dementia, altered mental status likely resulting from UTI, acute renal failure, and polypharmacy ?Code(s): CT of head shows no acute intracranial issues Neuro checks are stable Mentation improving slowly with treatment of underlying disease Consult PT OT critical care registered nurse for evaluation and assisting placement (2) E. Coli Urinary tract infection: ?Code(s): N39.0 - Urinary tract infection, site not specified ?Status:?Acute ?Assessment and Plan: Continue with IV antibiotics Urine culture growing E coli... With nieto sensitivities to all antibiotics Will switch to oral Keflex upon DC WBC count is stable (3) CEE (acute kidney injury): ?Code(s): N17.9 - Acute kidney failure, unspecified ?Status:?Acute ?Assessment and Plan: Gentle hydration Continue to monitor BUN and creatinine Renal function slowly improving Strict input and output monitoring (4) Gait abnormality: ?Code(s): R26.9 - Unspecified abnormalities of gait and mobility ?Status:?Acute ?Assessment and Plan: Likely secondary to deconditioning and debility PT OT as needed Brain MRI done which ruled out any intracranial abnormality or bleeding. Patient has chronic age-related changes (5) GERD (gastroesophageal reflux disease): ?Code(s): K21.9 - Gastro-esophageal reflux disease without esophagitis ?Status:?Acute ?Assessment and Plan: PPI (6) Alzheimer's dementia: ?Code(s): G30.9 - Alzheimer's disease, unspecified; F02.80 - Dementia in other diseases classified elsewhere, unspecified severity, without behavioral disturbance, psychotic disturbance, mood disturbance, and anxiety ?Status:?Acute ?Assessment and Plan: ?continue memantine (7) Hypertension Continue amlodipine 5 mg daily p.o., lisinopril 20 mg daily p.o. (8) bacterial conjunctivitis left eye Patient started on antibiotics eyedrops in the left eye b.i.d. Monitor patient closely DC planning to [facility] facility in am once arrangements are made ? Patient seen and examined at bedside during my morning rounds ? Collaborated with patient's nurse at the bedside in detail and addressed all concerns ? Labs, electrolytes, radiology, investigations and test results reviewed ? Consult/Nursing/Ancilliary notes on the chart reviewed and appreciated ? Spoke with patient/family at the bedside and answered all the questions that they had Repeat labs in a.m. Electrolyte replacement as per protocol. Patient will be monitored very closely on the floor. Further recommendations as per the hospital course. Subjective Date/time seen: 11/15/23 17:53 Interval history: Patient evaluated bedside and spoke with the and the patient in detail. He is slowly improving. Care coordination working on SNF placement. Left eye
[2023-11-15] MEDS: TAMSULOSIN HCL 0.4 MG CAPSULE PO (20:06)
[2023-11-15] MEDS: ATORVASTATIN 10 MG TABLET PO (20:06)
[2023-11-15] MEDS: rOPINIRole HCL 1 MG TABLET PO (20:06)
[2023-11-15 20:55] VITALS: BP 163/76; PULSE 79; RESP 18; TEMP 37; O2SAT 97
[2023-11-16] MEDS: rOPINIRole HCL 0.5 MG TABLET PO (08:36)
[2023-11-16] MEDS: MEMANTINE 10 MG TABLET PO ×2 (08:36→20:17)
[2023-11-16] MEDS: lisinopriL 20 MG TABLET PO (08:36)
[2023-11-16] MEDS: FINASTERIDE 5 MG TABLET PO (08:36)
[2023-11-16] MEDS: amLODIPine BESYLATE 5 MG TABLET PO (08:36)
[2023-11-16] MEDS: MULTIVITAMINS /C LUTEIN (CENTRUM SILVER) TABLET *BKC 1 TAB PO (08:36)
[2023-11-16] MEDS: FERROUS SULFATE 325 MG TABLET DR PO ×2 (08:36→16:53)
[2023-11-16] MEDS: APIXABAN 2.5 MG TABLET BY MOUTH ×2 (08:36→20:17)
[2023-11-16] MEDS: MOXIFLOXACIN HCL 0.5% 3 ML OPHTH SOLN 1 DROP LEFT EYE ×2 (08:42→16:53)
[2023-11-16 13:52] VITALS: BP 131/58; PULSE 67; RESP 18; TEMP 36.1; O2SAT 99
--- NOTE | 2023-11-16 17:42 | PM.IMPN ---
Progress Note: A&P Assessment and Plan (1) Altered mental status: Code(s): R41.82 - Altered mental status, unspecified Status: Acute (2) CEE (acute kidney injury): Code(s): N17.9 - Acute kidney failure, unspecified Status: Acute (3) Urinary tract infection: Code(s): N39.0 - Urinary tract infection, site not specified Status: Acute (4) Gait abnormality: Code(s): R26.9 - Unspecified abnormalities of gait and mobility Status: Acute Plan This is an 88-year-old male with past medical history significant for hypertension, dementia, restless legs syndrome, BPH.? Patient's took him to primary care physician's office due to concerns for patient's generalized weakness he usually uses a walker as a walking aid.? Patient was brought to the emergency room after he had episode of confusion, disorientation, memory lapse while in the primary care physician's office could not recognize his .? Here preliminary workup was unrevealing for stroke.? Urine was significant for 20-50 white blood cells per high-power field. (1) Acute metabolic encephalopathy Patient has history of dementia, altered mental status likely resulting from UTI, acute renal failure, and polypharmacy ?Code(s): CT of head shows no acute intracranial issues Neuro checks are stable Mentation improving slowly with treatment of underlying disease Consult PT OT workforce investment act career manager for evaluation and assisting placement (2) E. Coli Urinary tract infection: ?Code(s): N39.0 - Urinary tract infection, site not specified ?Status:?Acute ?Assessment and Plan: Continue with IV antibiotics Urine culture growing E coli... With nieto sensitivities to all antibiotics Continue with the IV ceftriaxone, will switch to oral Keflex upon DC WBC count is stable (3) CEE (acute kidney injury): ?Code(s): N17.9 - Acute kidney failure, unspecified ?Status:?Acute ?Assessment and Plan: Gentle hydration Continue to monitor BUN and creatinine Renal function slowly improving Strict input and output monitoring (4) Gait abnormality: ?Code(s): R26.9 - Unspecified abnormalities of gait and mobility ?Status:?Acute ?Assessment and Plan: Likely secondary to deconditioning and debility PT OT as needed Brain MRI done which ruled out any intracranial abnormality or bleeding. Patient has chronic age-related changes (5) GERD (gastroesophageal reflux disease): ?Code(s): K21.9 - Gastro-esophageal reflux disease without esophagitis ?Status:?Acute ?Assessment and Plan: PPI (6) Alzheimer's dementia: ?Code(s): G30.9 - Alzheimer's disease, unspecified; F02.80 - Dementia in other diseases classified elsewhere, unspecified severity, without behavioral disturbance, psychotic disturbance, mood disturbance, and anxiety ?Status:?Acute ?Assessment and Plan: ?continue memantine (7) Hypertension Continue amlodipine 5 mg daily p.o., lisinopril 20 mg daily p.o. (8) bacterial conjunctivitis left eye Patient started on antibiotics eyedrops in the left eye b.i.d. Monitor patient closely Awaiting insurance authorization for dC planning to retirement facility. Backup plan is sending home with home health care ? Patient seen and examined at bedside during my morning rounds ? Collaborated with patient's nurse at the bedside in detail and addressed all concerns ? Labs, electrolytes, radiology, investigations and test results reviewed ? Consult/Nursing/Ancilliary notes on the chart reviewed and appreciated ? Spoke with patient/family at the bedside and answered all the questions that they had Repeat labs in a.m. Electrolyte replacement as per protocol. Patient will be monitored very closely on the floor. Further recommendations as per the hospital course. Subjective Date/time seen: 11/16/23 17:42 Interval history: Patient sitting at bedside during my morning rounds. We are still aw
[2023-11-16 20:00] VITALS: PULSE 69; RESP 18; O2SAT 96
[2023-11-16] MEDS: rOPINIRole HCL 1 MG TABLET PO (20:17)
[2023-11-16] MEDS: TAMSULOSIN HCL 0.4 MG CAPSULE PO (20:17)
[2023-11-16] MEDS: ATORVASTATIN 10 MG TABLET PO (20:17)
[2023-11-16 22:12] VITALS: BP 152/67; PULSE 69; RESP 18; TEMP 36.9; O2SAT 96
[2023-11-17 07:06] LABS: Basophils Absolute Auto 0.1 K/mm3 (0.0-0.1); Basophils Percent Auto 0.8 % (0.2-1.2); Eosinophils Absolute Auto 1.1 K/mm3 (0-0.3); Eosinophils Percent Auto 12.1 % (0-4.4); Hematocrit 29.7 % (42.0-52.0); Hemoglobin 9.1 g/dL (14.0-18.0); Immature Granulocyte Absolute 0.03 K/mm3 (0.00-0.031); Immature Granulocyte Percent A 0.3 % (0-0.5); Lymphocytes Absolute Auto 1.27 K/mm3 (0.9-3.2); Lymphocytes Percent Auto 14.5 % (18.3-44.2); Mean Corpuscular HGB Conc 30.6 g/dl (32-36); Mean Corpuscular Hemoglobin 29.8 pg (26-34); Mean Corpuscular Volume 97.4 fl (80-100); Mean Platelet Volume 11.8 fl (7.4-10.4); Monocytes Percent Auto 11.2 % (2.6-8.5); Neutrophils Absolute Auto 5.4 K/mm3 (1.3-6.7); Neutrophils Percent Auto 61.1 % (45.5-73.1); Platelet Count Result 277 k/mm3 (150-375); Red Blood Count 3.05 M/mm3 (4.6-6.20); White Blood Count 8.8 K/mm3 (4.5-10.0)
[2023-11-17 07:21] LABS: Anion Gap 3 mmol/L (8-16); Blood Urea Nitrogen 23 mg/dL (9-20); Calcium 8.8 mg/dL (8.4-10.2); Carbon Dioxide 27 mmol/L (22-30); Chloride 105 mmol/L (98-107); Estimated CRCL calculation 41 ml/min; Estimated Glomerular Filt Rate 57; Glucose 90 mg/dL (65-110); Sodium 135 mmol/L (137-145)
[2023-11-17] MEDS: FERROUS SULFATE 325 MG TABLET DR PO (08:52)
[2023-11-17] MEDS: lisinopriL 20 MG TABLET PO (08:52)
[2023-11-17] MEDS: FINASTERIDE 5 MG TABLET PO (08:52)
[2023-11-17] MEDS: amLODIPine BESYLATE 5 MG TABLET PO (08:52)
[2023-11-17] MEDS: MULTIVITAMINS /C LUTEIN (CENTRUM SILVER) TABLET *BKC 1 TAB PO (08:52)
[2023-11-17] MEDS: APIXABAN 2.5 MG TABLET BY MOUTH (08:52)
[2023-11-17] MEDS: rOPINIRole HCL 0.5 MG TABLET PO (08:52)
[2023-11-17] MEDS: SODIUM CHLORIDE 0.9% IV 1,000 ML 75 ML IV CONT (08:52)
[2023-11-17] MEDS: MEMANTINE 10 MG TABLET PO (08:52)
[2023-11-17] MEDS: MOXIFLOXACIN HCL 0.5% 3 ML OPHTH SOLN 1 DROP LEFT EYE (08:53)
--- NOTE | 2023-11-17 13:32 | PM.DS ---
DS: Admitting Diagnosis Discharge Date 11/17/2023: Admitting Diagnosis (1) Altered mental status: ?Code(s): R41.82 - Altered mental status, unspecified ?Status:?Acute ?Assessment and Plan: Admit to IMU CT of the head reviewed Continue to monitor Likely secondary to urinary tract infection (2) Urinary tract infection: ?Code(s): N39.0 - Urinary tract infection, site not specified ?Status:?Acute ?Assessment and Plan: Patient started on antibiotics Await cultures (3) CEE (acute kidney injury): ?Code(s): N17.9 - Acute kidney failure, unspecified ?Status:?Acute ?Assessment and Plan: Gentle hydration Continue to monitor BUN and creatinine (4) Gait abnormality: ?Code(s): R26.9 - Unspecified abnormalities of gait and mobility ?Status:?Acute ?Assessment and Plan: Likely secondary to deconditioning and debility PT OT as needed (5) GERD (gastroesophageal reflux disease): ?Code(s): K21.9 - Gastro-esophageal reflux disease without esophagitis ?Status:?Acute ?Assessment and Plan: PPI (6) Alzheimer's dementia: ?Code(s): G30.9 - Alzheimer's disease, unspecified; F02.80 - Dementia in other diseases classified elsewhere, unspecified severity, without behavioral disturbance, psychotic disturbance, mood disturbance, and anxiety ?Status:?Acute ?Assessment and Plan: ?continue memantine DS: Discharge Diagnosis Discharge Diagnosis (1) Altered mental status: Code(s): R41.82 - Altered mental status, unspecified Status: Acute (2) Syncope: Code(s): R55 - Syncope and collapse Status: Acute (3) CEE (acute kidney injury): Code(s): N17.9 - Acute kidney failure, unspecified Status: Acute (4) Urinary tract infection: Code(s): N39.0 - Urinary tract infection, site not specified Status: Acute (5) Gait abnormality: Code(s): R26.9 - Unspecified abnormalities of gait and mobility Status: Acute (6) Debilitated: Code(s): R53.81 - Other malaise Status: Acute (7) GERD (gastroesophageal reflux disease): Code(s): K21.9 - Gastro-esophageal reflux disease without esophagitis Status: Acute (8) BPH (benign prostatic hyperplasia): Code(s): N40.0 - Benign prostatic hyperplasia without lower urinary tract symptoms Status: Acute (9) Hypertension: Code(s): I10 - Essential (primary) hypertension Status: Acute (10) Muscle cramp, nocturnal: Code(s): R25.2 - Cramp and spasm Status: Acute (11) Stasis dermatitis of both legs: Code(s): I87.2 - Venous insufficiency (chronic) (peripheral) Status: Acute (12) Chronic rhinitis: Code(s): J31.0 - Chronic rhinitis Status: Acute (13) Constipation: Code(s): K59.00 - Constipation, unspecified Status: Acute (14) Fatigue: Code(s): R53.83 - Other fatigue Status: Acute (15) Anemia: Code(s): D64.9 - Anemia, unspecified Status: Acute (16) Obstructive sleep apnea: Code(s): G47.33 - Obstructive sleep apnea (adult) (pediatric) Status: Acute (17) Atrial fibrillation: Code(s): I48.91 - Unspecified atrial fibrillation Status: Acute (18) Allergic rhinitis: Code(s): J30.9 - Allergic rhinitis, unspecified Status: Acute (19) BPH (benign prostatic hyperplasia): Code(s): N40.0 - Benign prostatic hyperplasia without lower urinary tract symptoms Status: Acute (20) MGUS (monoclonal gammopathy of unknown significance): Code(s): D47.2 - Monoclonal gammopathy Status: Acute (21) Alzheimer's dementia: Code(s): G30.9 - Alzheimer's disease, unspecified; F02.80 - Dementia in other diseases classified elsewhere, unspecified severity, without behavioral disturbance, psychotic disturbance, mood disturbance, and anxiety Status: Acute (22) Arthralgia: Code(s): M25.50 - Pain in unspeci
[2023-11-17 14:00] VITALS: BP 124/63; PULSE 71; RESP 16; TEMP 35.6; O2SAT 95
[2023-11-17] MEDS: cefTRIAXone 1 GM VIAL IM (14:30)
== END 2023-11-17 14:35 | disposition home health service (06) ==
LOC: ANHED 17:58 → ANHIMU 21:18 → ANH3MEDSUR 11-12 19:13
PROVIDERS: Internal Medicine; Admitting Provider Hospitalist; Emergency Provider Emergency Medicine; PCP Family Medicine; Visit Provider Family Medicine
DX: N17.9 Acute kidney failure, unspecified (principal); N39.0 Urinary tract infection, site not specified; B96.20 Unspecified Escherichia coli [E. coli] as the cause of diseases classified elsewhere; H10.89 Other conjunctivitis; R41.82 Altered mental status, unspecified; R55 Syncope and collapse; G93.41 Metabolic encephalopathy; R53.81 Other malaise; R26.9 Unspecified abnormalities of gait and mobility; K21.9 Gastro-esophageal reflux disease without esophagitis; G30.9 Alzheimer's disease, unspecified; F02.80 Dementia in other diseases classified elsewhere, unspecified severity, without behavioral disturbance, psychotic disturbance, mood disturbance, and anxiety; Z99.89 Dependence on other enabling machines and devices; I48.91 Unspecified atrial fibrillation; D47.2 Monoclonal gammopathy; J31.0 Chronic rhinitis; N40.0 Benign prostatic hyperplasia without lower urinary tract symptoms; K59.00 Constipation, unspecified; R94.31 Abnormal electrocardiogram [ECG] [EKG]; I12.9 Hypertensive chronic kidney disease with stage 1 through stage 4 chronic kidney disease, or unspecified chronic kidney disease; N18.30 Chronic kidney disease, stage 3 unspecified; D63.1 Anemia in chronic kidney disease; R06.83 Snoring; I25.10 Atherosclerotic heart disease of native coronary artery without angina pectoris; G25.81 Restless legs syndrome; I87.2 Venous insufficiency (chronic) (peripheral); Z87.891 Personal history of nicotine dependence; Z79.01 Long term (current) use of anticoagulants; Z79.899 Other long term (current) drug therapy
CPT/HCPCS: 36415; 70450; 70553; 71045; 80048; 80053; 81001; 83605; 83735; 84100; 84484; 85025; 85027; 85610; 85730; 86140; 87040; 87077; 87086; 87186; 87493; 92610; 93005; 96361; 96365; 96375; 96376; 97110; 97116; 97162; 97166; 97530; 97535; 99285; A9270; A9577; G0378; J0360; J0696; J7030

== ENCOUNTER 2024-01-12 14:31 | Outpatient (CLI) | payer MEDICARE, SELFPAY ==
--- NOTE | ~2024-01-12 | XR_ITS ---
EXAMINATION: XR hip LT 2V w AP pelvis DATE: 01/12/2024 14:54 INDICATION: Unspecified fall, initial encounter. TECHNIQUE: An anteroposterior view of the pelvis and 2 views of left hip were obtained. COMPARISON: None. FINDINGS: There is a comminuted intertrochanteric fracture of proximal left femur with callus formati on. The distal fracture fragment demonstrates near-anatomic alignment status post open reduction inte rnal fixation with antegrade intramedullary kaiden and femoral head/neck screws. There is mild osteoarth ritis of the hips. There are changes of posterior fusion procedure involving lumbar spine, sacrum, an d iliac bones. The left vertical kaiden is discontinuous at L5-S1. IMPRESSION: 1. Mild osteoarthritis of the hips. 2. Healing comminuted intertrochanteric fracture of proximal left femur with internal fixation. 3. Posterior fusion procedure involving the lumbar spine, sacrum, and iliac bones with discontinuous left vertical kaiden at L5-S1. Reviewed, dictated and finalized at location E. IMPRESSION: 1. Mild osteoarthritis of the hips. 2. Healing comminuted intertrochanteric fracture of proximal left femur with in ternal fixation. 3. Posterior fusion procedure involving the lumbar spine, sacrum, and iliac bon es with discontinuous left vertical kaiden at L5-S1.
--- NOTE | ~2024-01-12 | XR_ITS ---
EXAMINATION: XR femur LT min 2V DATE: 01/12/2024 14:54 INDICATION: Unspecified fall, initial encounter. TECHNIQUE: 2 views of left femur on 4 radiographs were obtained. COMPARISON: None. FINDINGS: There is a comminuted intertrochanteric fracture of proximal left femur status post open re duction internal fixation with long antegrade intramedullary kaiden, 2 femoral head/neck screw, and 2 di stal interlocking screws. One of the distal screws is fractured. Callus formation is noted. No peripr osthetic lucency to suggest loosening or infection. There is mild left hip osteoarthritis. There is m ild left knee osteoarthritis. IMPRESSION: 1. Healing comminuted intertrochanteric fracture of proximal left femur status post open reduction in ternal fixation. Fracture of one of the distal interlocking screws. 2. Mild polyarticular osteoarthritis. Reviewed, dictated and finalized at location E. IMPRESSION: 1. Healing comminuted intertrochanteric fracture of proximal left femur status post open reduction internal fixation. Fracture of one of the distal interlocki ng screws. 2. Mild polyarticular osteoarthritis.
== END 2024-01-12 14:32 | disposition home or self-care (01) ==
PROVIDERS: PCP Family Medicine; Visit Provider Family Medicine
DX: M16.12 Unilateral primary osteoarthritis, left hip (principal); Z98.1 Arthrodesis status; S72.142A Displaced intertrochanteric fracture of left femur, initial encounter for closed fracture; X58.XXXA Exposure to other specified factors, initial encounter
CPT/HCPCS: 73502; 73552

== ENCOUNTER 2024-06-14 10:46 | Observation (INO) | payer MEDICARE, SELFPAY ==
--- NOTE | ~2024-06-14 | CT_ITS ---
CT brain wo con Ordering provider: Oumar Penny MD History: 89 years Male with . syncopal episode . Comparison: November 11, 2023 Technique: CT of the head without contrast. Radiation reduction technique utilized. The dose-length product was 681 mGy-cm. FINDINGS: BRAIN PARENCHYMA AND CSF SPACES: Mild leukoaraiosis and diffuse cortical atrophy. Mild atheromatous d isease. No midline shift, mass effect or hemorrhage. The brain parenchyma and CSF spaces are otherwise norm al. Empty sella turcica. VISUALIZED PARANASAL SINUSES: Well aerated. MASTOIDS: Well aerated. BONES: The bones appear intact. SOFT TISSUES: Visualized nasopharynx is normal. Superficial soft tissues are normal. IMPRESSION: No acute intracranial findings. Reviewed, dictated and finalized at location A.
--- NOTE | ~2024-06-14 | XR_ITS ---
EXAMINATION: XR chest 2V DATE: 06/14/2024 11:52 INDICATION: Syncope and weakness TECHNIQUE: frontal and lateral views of the chest were obtained. COMPARISON: Chest radiograph dated 11/11/2023 FINDINGS: Small lung volumes. Minimal streaky atelectasis at the left lung base. Calcified ulnar nodule related to old granulomatous disease versus bone island projecting over the right apex and the posterior rig ht third rib. No other airspace opacities, pulmonary edema, pleural effusion or pneumothorax. The car diomediastinal silhouette is within normal limits for AP technique. Left pectoral implantable front desk monitor. Partially visualized vertical kaiden and pedicle screw fixation for posterior spinal fusion be ginning in the lower thoracic spine extending into the lumbar spine and beyond the inferior margin of the qyjoe-pb-qaxi. Severe left glenohumeral osteoarthritis. IMPRESSION: 1. Small lung volumes with minimal left basilar atelectasis. Reviewed, dictated and finalized at location A.
[2024-06-14 10:52] VITALS: BP 110/67; PULSE 54; RESP 15; TEMP 36.4; O2SAT 96
[2024-06-14 11:05] VITALS: PULSE 53
--- NOTE | 2024-06-14 11:05 | ECG_ITS ---
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
--- NOTE | 2024-06-14 11:15 | PC.NURSE ---
RN called and spoke with Lizzie DU at [facility] who stated she will fax over pt DNR
[2024-06-14 11:31] LABS: Basophils Absolute Auto 0.1 K/mm3 (0.0-0.1); Basophils Percent Auto 0.8 % (0.2-1.2); Eosinophils Absolute Auto 0.2 K/mm3 (0-0.3); Eosinophils Percent Auto 1.8 % (0-4.4); Hematocrit 30.8 % (42.0-52.0); Hemoglobin 10.1 g/dL (14.0-18.0); Immature Granulocyte Absolute 0.06 K/mm3 (0.00-0.031); Immature Granulocyte Percent A 0.5 % (0-0.5); Lymphocytes Absolute Auto 0.71 K/mm3 (0.9-3.2); Lymphocytes Percent Auto 6.2 % (18.3-44.2); Mean Corpuscular HGB Conc 32.8 g/dl (32-36); Mean Corpuscular Hemoglobin 32.3 pg (26-34); Mean Corpuscular Volume 98.4 fl (80-100); Mean Platelet Volume 10.5 fl (7.4-10.4); Monocytes Percent Auto 8.6 % (2.6-8.5); Neutrophils Absolute Auto 9.5 K/mm3 (1.3-6.7); Neutrophils Percent Auto 82.1 % (45.5-73.1); Platelet Count Result 301 k/mm3 (150-375); Red Blood Count 3.13 M/mm3 (4.6-6.20); White Blood Count 11.5 K/mm3 (4.5-10.0)
[2024-06-14 11:37] VITALS: BP 113/63; PULSE 66; RESP 15; TEMP 36.4; O2SAT 99
[2024-06-14 11:45] LABS: Alanine Aminotransferase 17 U/L (6-50); Albumin Level 3.7 g/dL (3.5-5.1); Alkaline Phosphatase 62 U/L (38-126); Anion Gap 7 mmol/L (4-12); Aspartate Amino Transferase 23 U/L (17-59); Bilirubin,Total 0.4 mg/dL (0.2-1.3); Blood Urea Nitrogen 34 mg/dL (9-20); Calcium 8.8 mg/dL (8.4-10.2); Carbon Dioxide 27 mmol/L (22-30); Chloride 101 mmol/L (98-107); Estimated CRCL calculation 28 ml/min; Estimated Glomerular Filt Rate 36; Glucose 99 mg/dL (65-110); Potassium 4.4 mmol/L (3.4-5.0); Sodium 135 mmol/L (137-145)
[2024-06-14 11:56] LABS: Add Urine Microscopic? YES; Appearance Urine Cloudy (Clear); Bilirubin Urine Negative (Negative); Blood Urine 3+ (Negative); Color Urine Dark Yellow (Yellow); Glucose Urine UA Negative (Negative); Ketones Urine Trace mg/dL (Negative); Leukocyte Esterase Ur Trace LEU/UL (Negative); Nitrate Urine Negative (Negative); Protein Urine 2+ mg/dL (Negative); Specific Grav Ur 1.019 (1.001-1.035); pH Urine 5.5 (5.0-9.0)
[2024-06-14 12:23] LABS: Hyaline Casts Urine 30-49 /lpf
[2024-06-14 12:24] LABS: Mucus Urine Few /lpf
[2024-06-14 12:26] LABS: RBC Urine 51-75 /hpf (0-2)
[2024-06-14] MEDS: SODIUM CHLORIDE 0.9% IV 1,000 ML 999 ML IV CONT (12:26)
[2024-06-14 12:27] LABS: WBC Urine 0-5 /hpf (0-3)
[2024-06-14 12:34] LABS: Bacteria Urine 1+ /hpf
--- NOTE | 2024-06-14 12:35 | ED.DIZZY ---
HPI - Dizziness General Chief Complaint: Syncope Stated Complaint: Syncopal Time Seen by Provider: 06/14/24 10:54 History of Present Illness HPI Narrative: 89-year-old male present to the emergency department for evaluation for a syncopal episode. Patient was recently discharged from [facility] for urinary tract infection and due to physical deconditioning patient was admitted to [facility]. The is unhappy with the care that he is getting at this senior living. While patient was sitting outside this morning he had an episode of decreased responsiveness. EMS was called and patient was found to be hypotensive. Patient is A&O x1 at baseline and patient is currently at his baseline. Patient was complaining of leg pain this morning but denies any complaints at this time. prefers that the patient be admitted, patient is DNI DNR Related Data Home Medications Medication Instructions Recorded Confirmed atorvastatin 10 mg tablet 10 mg PO HS 03/20/20 06/14/24 apixaban 5 mg tablet (Eliquis) 5 mg PO Q12H 03/02/21 06/14/24 lisinopril 20 mg tablet 40 mg PO DAILY 08/10/21 06/14/24 ropinirole 0.5 mg tablet 3 mg PO DAILY 11/12/23 06/14/24 amlodipine 5 mg tablet (Norvasc) 10 mg PO DAILY 06/14/24 06/14/24 ciprofloxacin HCl 500 mg tablet 500 mg PO BID 06/14/24 06/14/24 cranberry fruit 450 mg tablet 450 mg PO DAILY 06/14/24 06/14/24 (cranberry) glucosamine 750 jv-yljpjn-snm 1 1 tablet PO DAILY 06/14/24 06/14/24 625 mg-D3 1,000 sobr-H-ixs-Bosw tablet (Cqnjkepomwa-Fkhzfcigvvu-[facility] with vit D) melatonin 3 mg tablet 6 mg PO HS 06/14/24 06/14/24 multivitamin with minerals 1 tablet PO DAILY 06/14/24 06/14/24 quetiapine 25 mg tablet 12.5 mg PO HS 06/14/24 06/14/24 trazodone 100 mg tablet 50 mg PO QHS 06/14/24 06/14/24 Allergies Allergy/AdvReac Type Severity Reaction Status Date / Time doxazosin Allergy Unknown Verified 06/14/24 11:16 hydrochlorothiazide Allergy Unknown Verified 06/14/24 11:16 hydrocodone [From [place]] Allergy Unknown Verified 06/14/24 11:16 oxycodone Allergy Hallucinati Verified 03/02/24 09:38 ng spironolactone Allergy Unknown Verified 06/14/24 11:16 Review of Systems Review of Systems: All systems reviewed & are unremarkable except as noted in HPI and below PMFSH Past Medical History Medical History Allergic rhinitis Alzheimer's dementia Atrial fibrillation BPH (benign prostatic hyperplasia) Chronic kidney disease, stage 3 Coronary artery disease Essential hypertension History of carotid artery disease MGUS (monoclonal gammopathy of unknown significance) Muscle cramp, nocturnal Restless legs syndrome Sinus node dysfunction Stasis dermatitis of both legs Surgical History Surgical History S/P carotid endarterectomy Social History Social History Smoking packs per day: 2.5 Smoking cigarettes per day: 50.0 Years smoked: 20 Smoking pack-years: 50.00 Smoking status: Former smoker Tobacco type: cigarettes Second hand tobacco smoke exposure: No Alcohol intake: former Substance use: never Substance use type: does not use Lack of Transportation: No Lack of Food: Never True Current Housing: I Have Housing Concerned About Future Housing: No Difficulty Paying Gas/Electric Bills: No Difficulty Paying for Meds: No Currently Unemployed: No Difficulty w/ Childcare or Family Care: No Living arrangements: with family Occupation/Education: retired Gender identity (if verbalized by the patient): Male Sexual Orientation (if Verbalized by the Patient): Straight or Heterosexual Spiritual care concerns: No Agree to blood products: Yes Exam Narrative: APPEARANCE: Well appearing, no pain, no distress, well-nourished. HEAD: normocephalic, atraumatic. EYES: PERRLA/EOMI, conjunct
--- NOTE | 2024-06-14 13:36 | PC.NURSE ---
Pt arrived with ann in place. at bedside states ann was placed x1 week ago. Per Md Johnson, verbal order given to replace ann.
[2024-06-14 14:44] LABS: Add Urine Microscopic? YES; Appearance Urine Clear (Clear); Bacteria Urine None Seen /hpf; Bilirubin Urine Negative (Negative); Blood Urine 1+ (Negative); Color Urine Yellow (Yellow); Glucose Urine UA Negative (Negative); Ketones Urine Negative (Negative); Leukocyte Esterase Ur 3+ LEU/UL (Negative); Need Manual Microscopic Reviewed; Nitrate Urine Negative (Negative); Non Pathogenic Casts 0-2; Protein Urine 1+ mg/dL (Negative); Specific Grav Ur 1.013 (1.001-1.035); Squamous Epithelial Cell Urine None Seen /hpf (Few); Urobilinogen Urine 0.2 mg/dL (<2.0); WBC Urine 21-50 /hpf (0-3)
--- NOTE | 2024-06-14 16:22 | PCCCNOTE ---
Care Coordination called to the ED to assist with placing pt in a different facility. Pt is currently at [facility], and the is unhappy with his care. I spoke with Ness at [facility] and Monserrat at [facility]. I have sent referrals to both facilities. Pt would like him to be placed upon discharge.
--- NOTE | 2024-06-14 16:28 | ADMGEN ---
This patient, Robbin Newby, was admitted to Medical Room 252-01. Patient/family oriented to hospital policies and general routines including ID bracelet, bed and alarms, visiting hours, pain management, procedures, bathroom and other care routines, personal items, smoking policy, room service/diet, and visiting hours. Information on how to activate the Rapid Response Team has been discussed. Patient/Family are encouraged to report perceived risks to care and to ask questions if they do not understand what they are told or what they should do.
--- NOTE | 2024-06-14 16:35 | PM.IMHP ---
H&P: HPI History of Present Illness Date/Time: 06/14/24 16:35 Chief Complaint: Syncope Narrative: 89 y/o M presents here with syncope with PMH of pAfib, CAD, HTN, HLD, BPH, and dementia (baseline A&O x1). The patient presents here via EMS from [facility] for further evaluation of syncopal event. HPI obtained through chart review and the patient's 's report. The patient was recently admitted to [facility] from 06/03/2024 to 06/12/2024 for UTI with associated fevers and weakness. Per review of outside hospital records, patient has history of syncope with last occurrence in January of 2024. Previously discussed PPM implantation if recurrence of symptoms or heart block advances. Currently has a loop recorder in. Patient was discharged with a Nicole catheter with plans to arrange outpatient urodynamics and consideration for possible prostate artery embolization, theorized the prostate may be cause of UTI. Patient was discharged to [facility] (on 06/12) for further PT/rehab due to physical deconditioning during recent admission. Since discharge the patient has been doing somewhat stronger in some aspects (able to somewhat push himself up, stand) and seemed improved when compared to how he was during his most recent admission. Today while the patient's was visiting him they were sitting outside when he reported to her that my legs hurt and something to the effect that there was a visual disturbance. Then had an episode of decreased responsiveness. Head had drooped forward, drooling, and BP was difficult to obtain. Clamminess noted by MI staff. EMS was called and upon their arrival the patient was hypotensive, 80/50. They administered a 500 mL bolus of NS with significant improvement in blood pressure, 150/60. EKG today showed sinus bradycardia with first-degree AV block, rate 51. EKG done in October of 2023 showed first-degree AV block as well with a rate of 84. reports that he was able to eat okay in the last 48 hours,but has had very poor fluid intake. Initial VS at presentation: 97.5? F, HR 54, RR 15, 110/67, and 96% on RA. ED workup showed: WBC 11.5, hemoglobin 10.1 (at baseline), sodium 135, creatinine 1.8 and GFR 36 (previously 1.2 and GFR 57 on 11/17/2023), and UA is suggestive of UTI. CXR showed small lung volumes with minimal left basilar atelectasis. Review of Systems Review of Systems: ROS unobtainable: Yes unobtainable due to mental status PMFSH Past Medical History Medical History Allergic rhinitis Alzheimer's dementia Anemia Anosmia Atrial fibrillation BPH (benign prostatic hyperplasia) Chronic kidney disease, stage 3 Coronary artery disease Debilitated GERD (gastroesophageal reflux disease) Hypertension MGUS (monoclonal gammopathy of unknown significance) Obstructive sleep apnea Restless legs syndrome Sinus node dysfunction Stasis dermatitis of both legs Surgical History Surgical History S/P carotid endarterectomy Social History Social History Smoking packs per day: 2.5 Smoking cigarettes per day: 50.0 Years smoked: 20 Smoking pack-years: 50.00 Smoking status: Former smoker Tobacco type: cigarettes Second hand tobacco smoke exposure: No Alcohol intake: former Substance use: never Substance use type: does not use Lack of Transportation: No Lack of Food: Never True Current Housing: I Have Housing Concerned About Future Housing: No Difficulty Paying Gas/Electric Bills: No Difficulty Paying for Meds: No Currently Unemployed: No Difficulty w/ Childcare or Family Care: No Living arrangements: with family Occupation/Education: retired Gender identity (if verbalized by the patient): Male Sexual Orientation (if Verbalized by the Patient): Straight or Heterosexual Spiritual care conc
[2024-06-14] MEDS: LACTATED RINGERS 1,000 ML 100 ML IV CONT (18:14)
[2024-06-14 20:00] VITALS: PULSE 64
[2024-06-14 20:19] VITALS: BP 187/78; PULSE 71; RESP 18; TEMP 36.5; O2SAT 94
[2024-06-14] MEDS: APIXABAN 5 MG TABLET PO (21:56)
[2024-06-14] MEDS: traZODone HCL 50 MG TABLET PO (21:56)
[2024-06-14] MEDS: MELATONIN 3 MG TABLET 6 MG PO (21:56)
[2024-06-14] MEDS: ATORVASTATIN 10 MG TABLET PO (21:56)
[2024-06-14] MEDS: QUEtiapine FUMARATE 12.5 MG TABLET PO (21:56)
[2024-06-15] VITALS (11 sets, daily range): BP systolic 108–156; BP diastolic 47–64; PULSE 52–74; RESP 14–18; TEMP 36.6–36.9; O2SAT 92–99; BMI 29.7
[2024-06-15 05:53] LABS: Basophils Absolute Auto 0.1 K/mm3 (0.0-0.1); Basophils Percent Auto 0.6 % (0.2-1.2); Eosinophils Absolute Auto 0.1 K/mm3 (0-0.3); Eosinophils Percent Auto 0.6 % (0-4.4); Hematocrit 32.8 % (42.0-52.0); Hemoglobin 10.6 g/dL (14.0-18.0); Immature Granulocyte Absolute 0.06 K/mm3 (0.00-0.031); Immature Granulocyte Percent A 0.6 % (0-0.5); Lymphocytes Absolute Auto 0.92 K/mm3 (0.9-3.2); Mean Corpuscular HGB Conc 32.3 g/dl (32-36); Mean Corpuscular Hemoglobin 31.3 pg (26-34); Mean Corpuscular Volume 96.8 fl (80-100); Mean Platelet Volume 11.2 fl (7.4-10.4); Monocytes Absolute Auto 0.6 K/mm3 (0.1-0.6); Neutrophils Absolute Auto 8.5 K/mm3 (1.3-6.7); Neutrophils Percent Auto 83.2 % (45.5-73.1); Platelet Count Result 306 k/mm3 (150-375); Red Blood Count 3.39 M/mm3 (4.6-6.20); White Blood Count 10.2 K/mm3 (4.5-10.0)
[2024-06-15 06:04] LABS: Alanine Aminotransferase 16 U/L (6-50); Albumin Level 3.6 g/dL (3.5-5.1); Alkaline Phosphatase 67 U/L (38-126); Anion Gap 8 mmol/L (4-12); Aspartate Amino Transferase 24 U/L (17-59); Bilirubin,Total 0.4 mg/dL (0.2-1.3); Blood Urea Nitrogen 28 mg/dL (9-20); Carbon Dioxide 26 mmol/L (22-30); Chloride 101 mmol/L (98-107); Estimated CRCL calculation 38 ml/min; Estimated Glomerular Filt Rate 52; Glucose 114 mg/dL (65-110); Potassium 4.3 mmol/L (3.4-5.0); Sodium 135 mmol/L (137-145)
[2024-06-15] MEDS: FERROUS SULFATE 325 MG TABLET DR BY MOUTH ×2 (08:38→16:35)
[2024-06-15] MEDS: THERAPEUTIC MULTIVITAMINS/MINERALS TAB (*BKC) 1 TABLET PO (08:38)
[2024-06-15] MEDS: rOPINIRole HCL 1 MG TABLET 3 MG PO (08:38)
[2024-06-15] MEDS: lisinopriL 20 MG TABLET 40 MG PO (08:38)
[2024-06-15] MEDS: FINASTERIDE 5 MG TABLET PO (08:38)
[2024-06-15] MEDS: APIXABAN 5 MG TABLET PO ×2 (08:38→20:26)
--- NOTE | 2024-06-15 13:38 | PM.IMPN ---
Progress Note: A&P Assessment and Plan (1) Syncope: Qualifiers: Syncope type: unspecified Qualified Code(s): R55 - Syncope and collapse Code(s): R55 - Syncope and collapse Status: Acute Assessment and Plan: - EKG, initial: Sinus bradycardia with first-degree AV block with occasional supraventricular premature complexes and nonconducted atrial premature complex, possible right ventricular conduction delay, left anterior fascicular block, and anteroseptal [place] of indeterminate age - EKG, previous (10/2023): Sinus rhythm with first-degree AV block with frequent supraventricular premature complexes, left anterior fascicular block, possible anterior [place] of indeterminate age. - CXR: Small lung volumes with minimal left basilar atelectasis - discussed initiating further cardiac workup with the patient's , she would like to forego citing that even if a heart attack was found they do not want procedures/surgeries or drastic measures. would reconsider pacemaker if indicated. - suspect syncope related to hypotension and responded well to IV fluids, continue fluids and monitor I&Os. - telemetry monitoring- SR 66 (2) CEE (acute kidney injury): Code(s): N17.9 - Acute kidney failure, unspecified Status: Acute Assessment and Plan: - CEE superimposed on CKD - 06/14/24: BUN 34, creatinine 1.8, and GFR 36 - 06/15/24: BUN 28, creatinine 1.30, and GFR 52 - baseline creatinine per [place] lab work 1.0-1.3, per paperwork from [facility] the patient's baseline creatinine is 1.3 - suspect hypovolemia due to hypertension and great response to IV fluids, will rehydrate and reassess renal function. Consider Nephrology workup if renal function does not respond well to current treatment plan. - trend renal function - trend electrolytes, correct as needed - NS@ 75 ml/hr (3) Acute UTI: Code(s): N39.0 - Urinary tract infection, site not specified Status: Acute Assessment and Plan: - ann exchanged on 06/14 - UA: 1+ protein, 1+ blood, 3+ leuk esterase, 6-10 RBC, 21-50 WBC, no epithelial cells. - UC pending, follow - previous micro reviewed, most recent in October of 2023 which showed E coli pansensitive - started on Ceftriaxone on 06/14 - may need a referral to Urology at d/c. patient has previously seen Evon EDMONDS. plans to call tomorrow for an appt. continue finasteride and Ann in interim. (4) Hypertension: Qualifiers: Hypertension type: primary hypertension Qualified Code(s): I10 - Essential (primary) hypertension Code(s): I10 - Essential (primary) hypertension Status: Chronic Assessment and Plan: - chronic. initially hypotensive, currently 156/58 - home medications: Given recent hypotension will resume lisinopril and hold amlodipine, assess response. Resume amlodipine when appropriate. - monitor Plan has been unhappy with care at [facility], care coordination consulted to see if he qualifies for a different facility. continue PT/OT while admitted to prevent further deconditioning. Diet: Heart healthy GI Prophylaxis: Not currently indicated DVT Prophylaxis: Continue home Eliquis Lines: Peripheral Code Status: DNR/DNI Subjective Date/time seen: 06/15/24 13:38 Interval history: Patient denies pain. at bedside and reports that patient had passed out yesterday at the correction. does not want patient to return to the [facility]. trying to get patient to eat. Review of Systems Review of Systems: All systems reviewed & are unremarkable except as noted in HPI and below Exam Const: General: comfortable and no acute distress Eyes: Sclera: sclerae normal Resp: Effort & Inspection: normal respiratory effort Auscultation: clear to auscultation bilaterally Cardio: Rate: regular rate Rhythm: regular rhythm Other: SR- 66 GI: GI Palp: Yes Soft to palpation Auscultation: normal bowel abdirahman
--- NOTE | 2024-06-15 17:11 | ECG_ITS ---
Test Date: 2024-06-15 17:24:02 Measurements Intervals [place] Rate: 55 P: 0 [place]: 0 QRS: -59 QRSD: 121 T: -7 QT: 458 QTc: 442 Interpretive Statements SINUS BRADYCARDIA WITH MARKED FIRST DEGREE AV BLOCK ECTOPIC ATRIAL COMPLEXES WITH NON-CONDUCTED ATRIAL PREMATURE COMPLEX POSSIBLE RIGHT VENTRICULAR CONDUCTION DELAY LEFT ANTERIOR FASCICULAR BLOCK CANNOT R/O SEPTAL INFARCT, AGE INDETERMINATE BORDERLINE T WAVE ABNORMALITY- INFERIOR LEADS BASELINE ARTIFACT- I, II, III ABNORMAL ECG Compared to ECG 06/14/2024 11:00:40 ECTOPIC ATRIAL COMPLEXES NOW PRESENT Electronically Signed On 06-16-2024 09:02:37 CDT by Octavio Castro D.O.
[2024-06-15] MEDS: SODIUM CHLORIDE 0.9% IV 1,000 ML 75 ML IV CONT (17:19)
[2024-06-15] MEDS: ATORVASTATIN 10 MG TABLET PO (20:26)
[2024-06-15] MEDS: MELATONIN 3 MG TABLET 6 MG PO (20:26)
[2024-06-15] MEDS: traZODone HCL 50 MG TABLET PO (20:26)
[2024-06-15] MEDS: QUEtiapine FUMARATE 12.5 MG TABLET PO (20:26)
[2024-06-16] VITALS (9 sets, daily range): BP systolic 146–159; BP diastolic 55–65; PULSE 42–70; RESP 16–18; TEMP 36.1–36.7; O2SAT 94–97
[2024-06-16 05:40] LABS: Basophils Absolute Auto 0.1 K/mm3 (0.0-0.1); Basophils Percent Auto 0.9 % (0.2-1.2); Eosinophils Absolute Auto 0.4 K/mm3 (0-0.3); Eosinophils Percent Auto 5.2 % (0-4.4); Hematocrit 29.1 % (42.0-52.0); Hemoglobin 9.6 g/dL (14.0-18.0); Immature Granulocyte Absolute 0.03 K/mm3 (0.00-0.031); Immature Granulocyte Percent A 0.4 % (0-0.5); Lymphocytes Absolute Auto 1.76 K/mm3 (0.9-3.2); Lymphocytes Percent Auto 26.1 % (18.3-44.2); Mean Corpuscular Hemoglobin 32.5 pg (26-34); Mean Corpuscular Volume 98.6 fl (80-100); Mean Platelet Volume 10.9 fl (7.4-10.4); Monocytes Absolute Auto 0.6 K/mm3 (0.1-0.6); Monocytes Percent Auto 9.3 % (2.6-8.5); Neutrophils Absolute Auto 3.9 K/mm3 (1.3-6.7); Neutrophils Percent Auto 58.1 % (45.5-73.1); Platelet Count Result 253 k/mm3 (150-375); Red Blood Count 2.95 M/mm3 (4.6-6.20); Red Cell Distribution Width 13.2 % (11.5-14.5); White Blood Count 6.8 K/mm3 (4.5-10.0)
[2024-06-16 05:51] LABS: Alanine Aminotransferase 13 U/L (6-50); Albumin Level 3.2 g/dL (3.5-5.1); Alkaline Phosphatase 54 U/L (38-126); Anion Gap 6 mmol/L (4-12); Aspartate Amino Transferase 20 U/L (17-59); Bilirubin,Total 0.3 mg/dL (0.2-1.3); Blood Urea Nitrogen 32 mg/dL (9-20); Calcium 8.9 mg/dL (8.4-10.2); Carbon Dioxide 25 mmol/L (22-30); Chloride 103 mmol/L (98-107); Estimated CRCL calculation 41 ml/min; Estimated Glomerular Filt Rate 57; Glucose 88 mg/dL (65-110); Potassium 3.7 mmol/L (3.4-5.0); Sodium 134 mmol/L (137-145)
[2024-06-16 06:21] LABS: Thyroid Stimulating Hormone 0.883 uIU/mL (0.465-4.680)
[2024-06-16] MEDS: SODIUM CHLORIDE 0.9% IV 1,000 ML 75 ML IV CONT ×2 (06:50→21:06)
[2024-06-16] MEDS: THERAPEUTIC MULTIVITAMINS/MINERALS TAB (*BKC) 1 TABLET PO (08:31)
[2024-06-16] MEDS: lisinopriL 20 MG TABLET 40 MG PO (08:31)
[2024-06-16] MEDS: FERROUS SULFATE 325 MG TABLET DR BY MOUTH ×2 (08:32→16:03)
[2024-06-16] MEDS: rOPINIRole HCL 1 MG TABLET 3 MG PO (08:32)
[2024-06-16] MEDS: FINASTERIDE 5 MG TABLET PO (08:32)
[2024-06-16] MEDS: APIXABAN 5 MG TABLET PO ×2 (08:32→21:07)
--- NOTE | 2024-06-16 15:05 | PM.IMPN ---
Progress Note: A&P Assessment and Plan (1) Syncope: Qualifiers: Syncope type: unspecified Qualified Code(s): R55 - Syncope and collapse Code(s): R55 - Syncope and collapse Status: Acute Assessment and Plan: - EKG, initial: Sinus bradycardia with first-degree AV block with occasional supraventricular premature complexes and nonconducted atrial premature complex, possible right ventricular conduction delay, left anterior fascicular block, and anteroseptal [place] of indeterminate age - EKG, previous (10/2023): Sinus rhythm with first-degree AV block with frequent supraventricular premature complexes, left anterior fascicular block, possible anterior [place] of indeterminate age. - EKG last evening showed: Sinus bradycardia with first degree AV block ectopic atrial complexes with non-conducted atrial premature complex possible right ventricular conduction delay. - CXR: Small lung volumes with minimal left basilar atelectasis - discussed initiating further cardiac workup with the patient's , she would like to forego citing that even if a heart attack was found they do not want procedures/surgeries or drastic measures. would reconsider pacemaker if indicated. - suspect syncope related to hypotension and responded well to IV fluids, continue fluids and monitor I&Os. - telemetry monitoring- Sinus ahsan 53. (2) CEE (acute kidney injury): Code(s): N17.9 - Acute kidney failure, unspecified Status: Acute Assessment and Plan: - CEE superimposed on CKD - 06/14/24: BUN 34, creatinine 1.8, and GFR 36 - 06/15/24: BUN 28, creatinine 1.30, and GFR 52 - 06/16/24: BUN 32, creatinine 1.20, and GFR 57 - baseline creatinine per [place] lab work 1.0-1.3, per paperwork from [facility] the patient's baseline creatinine is 1.3 - suspect hypovolemia due to hypertension and great response to IV fluids, will rehydrate and reassess renal function. Consider Nephrology workup if renal function does not respond well to current treatment plan. - trend renal function - trend electrolytes, correct as needed - NS@ 75 ml/hr (3) Acute UTI: Code(s): N39.0 - Urinary tract infection, site not specified Status: Acute Assessment and Plan: - ann exchanged on 06/14 - UA: 1+ protein, 1+ blood, 3+ leuk esterase, 6-10 RBC, 21-50 WBC, no epithelial cells. - UC culture negative, WBC 6.8. - previous micro reviewed, most recent in October of 2023 which showed E coli pansensitive - Stop Ceftriaxone - may need a referral to Urology at d/c. patient has previously seen Evon EDMONDS. plans to call on Tuesday for an appt. continue finasteride and Ann in interim. (4) Hypertension: Qualifiers: Hypertension type: primary hypertension Qualified Code(s): I10 - Essential (primary) hypertension Code(s): I10 - Essential (primary) hypertension Status: Chronic Assessment and Plan: - chronic. initially hypotensive, currently 146/55 - home medications: Given recent hypotension will resume lisinopril and hold amlodipine, assess response. Resume amlodipine when appropriate. - monitor Plan has been unhappy with care at [facility], care coordination consulted to see if he qualifies for a different facility. continue PT/OT while admitted to prevent further deconditioning. Diet: Heart healthy GI Prophylaxis: Not currently indicated DVT Prophylaxis: Continue home Eliquis Lines: Peripheral Code Status: DNR/DNI Subjective Date/time seen: 06/16/24 15:05 Interval history: Patient up sitting in chair today watching television and able to answer more questions. Patient denies pain, shortness of breath, nausea, or vomiting. at bedside and wants patient to go to rehab when he leaves here. has discussed with high risk case manager facilities she has chosen. reports that patient ate a good breakfast this morning with her assistance and was drinking better. Review of Systems Revie
[2024-06-16] MEDS: ATORVASTATIN 10 MG TABLET PO (21:07)
[2024-06-16] MEDS: MELATONIN 3 MG TABLET 6 MG PO (21:07)
[2024-06-16] MEDS: QUEtiapine FUMARATE 12.5 MG TABLET PO (21:07)
[2024-06-16] MEDS: traZODone HCL 50 MG TABLET PO (21:07)
[2024-06-17] VITALS (13 sets, daily range): BP systolic 162–184; BP diastolic 65–81; PULSE 55–78; RESP 16–18; TEMP 36.1–36.5; O2SAT 95–98
[2024-06-17 06:41] LABS: Basophils Absolute Auto 0.1 K/mm3 (0.0-0.1); Basophils Percent Auto 0.7 % (0.2-1.2); Eosinophils Absolute Auto 0.5 K/mm3 (0-0.3); Eosinophils Percent Auto 4.6 % (0-4.4); Hematocrit 32.2 % (42.0-52.0); Hemoglobin 10.5 g/dL (14.0-18.0); Immature Granulocyte Absolute 0.06 K/mm3 (0.00-0.031); Immature Granulocyte Percent A 0.6 % (0-0.5); Lymphocytes Absolute Auto 1.09 K/mm3 (0.9-3.2); Lymphocytes Percent Auto 10.9 % (18.3-44.2); Mean Corpuscular HGB Conc 32.6 g/dl (32-36); Mean Corpuscular Hemoglobin 31.6 pg (26-34); Monocytes Absolute Auto 0.8 K/mm3 (0.1-0.6); Monocytes Percent Auto 7.5 % (2.6-8.5); Neutrophils Absolute Auto 7.6 K/mm3 (1.3-6.7); Neutrophils Percent Auto 75.7 % (45.5-73.1); Platelet Count Result 305 k/mm3 (150-375); Red Blood Count 3.32 M/mm3 (4.6-6.20); Red Cell Distribution Width 12.9 % (11.5-14.5)
[2024-06-17 07:02] LABS: Alanine Aminotransferase 14 U/L (6-50); Albumin Level 3.6 g/dL (3.5-5.1); Alkaline Phosphatase 62 U/L (38-126); Anion Gap 5 mmol/L (4-12); Aspartate Amino Transferase 25 U/L (17-59); Bilirubin,Total 0.2 mg/dL (0.2-1.3); Blood Urea Nitrogen 27 mg/dL (9-20); Calcium 9.3 mg/dL (8.4-10.2); Carbon Dioxide 26 mmol/L (22-30); Chloride 104 mmol/L (98-107); Estimated CRCL calculation 48 ml/min; Estimated Glomerular Filt Rate > 60; Glucose 94 mg/dL (65-110); Sodium 135 mmol/L (137-145)
[2024-06-17] MEDS: FINASTERIDE 5 MG TABLET PO (08:04)
[2024-06-17] MEDS: THERAPEUTIC MULTIVITAMINS/MINERALS TAB (*BKC) 1 TABLET PO (08:04)
[2024-06-17] MEDS: APIXABAN 5 MG TABLET PO ×2 (08:04→20:50)
[2024-06-17] MEDS: lisinopriL 20 MG TABLET 40 MG PO (08:04)
[2024-06-17] MEDS: FERROUS SULFATE 325 MG TABLET DR BY MOUTH ×2 (08:04→17:35)
[2024-06-17] MEDS: rOPINIRole HCL 1 MG TABLET 3 MG PO (08:04)
[2024-06-17] MEDS: amLODIPine BESYLATE 10 MG TABLET PO (08:09)
--- NOTE | 2024-06-17 13:48 | PM.IMPN ---
Progress Note: A&P Assessment and Plan (1) Syncope: Qualifiers: Syncope type: unspecified Qualified Code(s): R55 - Syncope and collapse Code(s): R55 - Syncope and collapse Status: Acute Assessment and Plan: - EKG, initial: Sinus bradycardia with first-degree AV block with occasional supraventricular premature complexes and nonconducted atrial premature complex, possible right ventricular conduction delay, left anterior fascicular block, and anteroseptal [place] of indeterminate age - EKG, previous (10/2023): Sinus rhythm with first-degree AV block with frequent supraventricular premature complexes, left anterior fascicular block, possible anterior [place] of indeterminate age. - EKG last evening showed: Sinus bradycardia with first degree AV block ectopic atrial complexes with non-conducted atrial premature complex possible right ventricular conduction delay. - CXR: Small lung volumes with minimal left basilar atelectasis - discussed initiating further cardiac workup with the patient's , she would like to forego citing that even if a heart attack was found they do not want procedures/surgeries or drastic measures. would reconsider pacemaker if indicated. - suspect syncope related to hypotension and responded well to IV fluids, continue fluids and monitor I&Os. - telemetry monitoring- Sinus rhythm 70. - Intake is improving. (2) CEE (acute kidney injury): Code(s): N17.9 - Acute kidney failure, unspecified Status: Acute Assessment and Plan: - CEE superimposed on CKD - 06/14/24: BUN 34, creatinine 1.8, and GFR 36 - 06/15/24: BUN 28, creatinine 1.30, and GFR 52 - 06/16/24: BUN 32, creatinine 1.20, and GFR 57 - 06/17/24: BUN 27, creatinine 1.00, and GFR >60 - baseline creatinine per [place] lab work 1.0-1.3, per paperwork from [facility] the patient's baseline creatinine is 1.3 - suspect hypovolemia due to hypertension and great response to IV fluids, will rehydrate and reassess renal function. Consider Nephrology workup if renal function does not respond well to current treatment plan. - trend renal function - trend electrolytes, correct as needed - decrease NS@ 50 ml/hr (3) Acute UTI: Code(s): N39.0 - Urinary tract infection, site not specified Status: Acute Assessment and Plan: - ann exchanged on 06/14 - UA: 1+ protein, 1+ blood, 3+ leuk esterase, 6-10 RBC, 21-50 WBC, no epithelial cells. - UC culture negative, WBC 6.8. - previous micro reviewed, most recent in October of 2023 which showed E coli pansensitive - Stop Ceftriaxone - may need a referral to Urology at d/c. patient has previously seen Evon EDMONDS. plans to call on Tuesday for an appt. continue finasteride and Ann in interim. (4) Hypertension: Qualifiers: Hypertension type: primary hypertension Qualified Code(s): I10 - Essential (primary) hypertension Code(s): I10 - Essential (primary) hypertension Status: Chronic Assessment and Plan: - chronic. initially hypotensive, currently 165/78 - home medications: Given recent hypotension will resume lisinopril and hold amlodipine, assess response. Resume amlodipine when appropriate. - decrease IV fluids NS @ 50 ml/hr - monitor Plan has been unhappy with care at [facility], care coordination consulted to see if he qualifies for a different facility. continue PT/OT while admitted to prevent further deconditioning. Diet: Heart healthy GI Prophylaxis: Not currently indicated DVT Prophylaxis: Continue home Eliquis Lines: Peripheral Code Status: DNR/DNI Subjective Date/time seen: 06/17/24 13:48 Interval history: Patient is sitting up in bed today watching television and able to answer more questions. Patient denies pain, shortness of breath, nausea, or vomiting. at bedside and wants patient to go to rehab when he leaves here. has discussed with lead case manager facilities she has chosen. reports
[2024-06-17] MEDS: METOPROLOL TARTRATE 12.5 MG TABLET PO (17:36)
[2024-06-17] MEDS: SODIUM CHLORIDE 0.9% IV 1,000 ML 75 ML IV CONT (17:39)
[2024-06-17] MEDS: QUEtiapine FUMARATE 12.5 MG TABLET PO (20:50)
[2024-06-17] MEDS: ATORVASTATIN 10 MG TABLET PO (20:50)
[2024-06-17] MEDS: traZODone HCL 50 MG TABLET PO (20:50)
[2024-06-17] MEDS: MELATONIN 3 MG TABLET 6 MG PO (20:51)
[2024-06-18] VITALS (10 sets, daily range): BP systolic 119–165; BP diastolic 50–81; PULSE 62–71; RESP 18; TEMP 36.1–36.6; O2SAT 97
[2024-06-18] MEDS: QUEtiapine FUMARATE 12.5 MG TABLET PO ×2 (02:30→20:34)
[2024-06-18 05:46] LABS: Basophils Absolute Auto 0.1 K/mm3 (0.0-0.1); Basophils Percent Auto 0.6 % (0.2-1.2); Eosinophils Absolute Auto 0.3 K/mm3 (0-0.3); Eosinophils Percent Auto 2.4 % (0-4.4); Hematocrit 31.5 % (42.0-52.0); Hemoglobin 10.3 g/dL (14.0-18.0); Immature Granulocyte Absolute 0.07 K/mm3 (0.00-0.031); Immature Granulocyte Percent A 0.6 % (0-0.5); Lymphocytes Absolute Auto 0.95 K/mm3 (0.9-3.2); Lymphocytes Percent Auto 7.6 % (18.3-44.2); Mean Corpuscular HGB Conc 32.7 g/dl (32-36); Mean Corpuscular Hemoglobin 31.6 pg (26-34); Mean Corpuscular Volume 96.6 fl (80-100); Mean Platelet Volume 10.6 fl (7.4-10.4); Monocytes Absolute Auto 0.8 K/mm3 (0.1-0.6); Monocytes Percent Auto 6.8 % (2.6-8.5); Neutrophils Absolute Auto 10.2 K/mm3 (1.3-6.7); Platelet Count Result 325 k/mm3 (150-375); Red Blood Count 3.26 M/mm3 (4.6-6.20); Red Cell Distribution Width 12.6 % (11.5-14.5); White Blood Count 12.4 K/mm3 (4.5-10.0)
[2024-06-18 05:53] LABS: Alanine Aminotransferase 13 U/L (6-50); Albumin Level 3.5 g/dL (3.5-5.1); Alkaline Phosphatase 67 U/L (38-126); Anion Gap 8 mmol/L (4-12); Aspartate Amino Transferase 24 U/L (17-59); Bilirubin,Total 0.4 mg/dL (0.2-1.3); Blood Urea Nitrogen 23 mg/dL (9-20); Calcium 9.2 mg/dL (8.4-10.2); Carbon Dioxide 23 mmol/L (22-30); Chloride 104 mmol/L (98-107); Estimated CRCL calculation 44 ml/min; Estimated Glomerular Filt Rate > 60; Glucose 92 mg/dL (65-110); Potassium 4.2 mmol/L (3.4-5.0); Sodium 135 mmol/L (137-145)
[2024-06-18] MEDS: FERROUS SULFATE 325 MG TABLET DR BY MOUTH ×2 (08:26→17:40)
[2024-06-18] MEDS: amLODIPine BESYLATE 10 MG TABLET PO (08:26)
[2024-06-18] MEDS: APIXABAN 5 MG TABLET PO ×2 (08:26→20:34)
[2024-06-18] MEDS: lisinopriL 20 MG TABLET 40 MG PO (08:27)
[2024-06-18] MEDS: FINASTERIDE 5 MG TABLET PO (08:27)
[2024-06-18] MEDS: THERAPEUTIC MULTIVITAMINS/MINERALS TAB (*BKC) 1 TABLET PO (08:27)
[2024-06-18] MEDS: rOPINIRole HCL 1 MG TABLET 3 MG PO (08:27)
--- NOTE | 2024-06-18 11:50 | PM.IMPN ---
Progress Note: A&P Assessment and Plan (1) Syncope: Qualifiers: Syncope type: unspecified Qualified Code(s): R55 - Syncope and collapse Code(s): R55 - Syncope and collapse Status: Acute Assessment and Plan: - EKG, initial: Sinus bradycardia with first-degree AV block with occasional supraventricular premature complexes and nonconducted atrial premature complex, possible right ventricular conduction delay, left anterior fascicular block, and anteroseptal [place] of indeterminate age - EKG, previous (10/2023): Sinus rhythm with first-degree AV block with frequent supraventricular premature complexes, left anterior fascicular block, possible anterior [place] of indeterminate age. - EKG last evening showed: Sinus bradycardia with first degree AV block ectopic atrial complexes with non-conducted atrial premature complex possible right ventricular conduction delay. - CXR: Small lung volumes with minimal left basilar atelectasis - discussed initiating further cardiac workup with the patient's , she would like to forego citing that even if a heart attack was found they do not want procedures/surgeries or drastic measures. would reconsider pacemaker if indicated. - suspect syncope related to hypotension and responded well to IV fluids, continue fluids and monitor I&Os. - telemetry monitoring- Sinus rhythm 82. - Intake is improving. (2) CEE (acute kidney injury): Code(s): N17.9 - Acute kidney failure, unspecified Status: Acute Assessment and Plan: - CEE superimposed on CKD - 06/14/24: BUN 34, creatinine 1.8, and GFR 36 - 06/15/24: BUN 28, creatinine 1.30, and GFR 52 - 06/16/24: BUN 32, creatinine 1.20, and GFR 57 - 06/17/24: BUN 27, creatinine 1.00, and GFR >60 - 06/18/24: BUN 23, creatinine 1.10, and GFR >60 - baseline creatinine per [place] lab work 1.0-1.3, per paperwork from [facility] the patient's baseline creatinine is 1.3 - suspect hypovolemia due to hypertension and great response to IV fluids, will rehydrate and reassess renal function. Consider Nephrology workup if renal function does not respond well to current treatment plan. - trend renal function - trend electrolytes, correct as needed - Stop IV fluids and encourage PO intake. (3) Acute UTI: Code(s): N39.0 - Urinary tract infection, site not specified Status: Acute Assessment and Plan: - ann exchanged on 06/14 - UA: 1+ protein, 1+ blood, 3+ leuk esterase, 6-10 RBC, 21-50 WBC, no epithelial cells. - UC culture negative, WBC 6.8. - previous micro reviewed, most recent in October of 2023 which showed E coli pansensitive - Stop Ceftriaxone - may need a referral to Urology at d/c. patient has previously seen Evon EDMONDS. plans to call on Tuesday for an appt. continue finasteride and Ann in interim. - WBC 12.4. Start Bactrim 1 tab q12. (4) Hypertension: Qualifiers: Hypertension type: primary hypertension Qualified Code(s): I10 - Essential (primary) hypertension Code(s): I10 - Essential (primary) hypertension Status: Chronic Assessment and Plan: - chronic. initially hypotensive, currently - home medications: Given recent hypotension will resume lisinopril and hold amlodipine, assess response. Resume amlodipine when appropriate. - monitor Plan has been unhappy with care at [facility], care coordination consulted to see if he qualifies for a different facility. continue PT/OT while admitted to prevent further deconditioning. Diet: Heart healthy GI Prophylaxis: Not currently indicated DVT Prophylaxis: Continue home Eliquis Lines: Peripheral Code Status: DNR/DNI Subjective Date/time seen: 06/18/24 11:50 Interval history: Patient is sitting up in bed today watching television and able to answer more questions. Patient denies pain, shortness of breath, nausea, or vomiting. at bedside and wants patient to go to rehab when he leaves here. has discus
[2024-06-18] MEDS: SULFAMETHOXAZOLE/TRIMETHOPRIM 800/160 MG DS TABLET 1 TAB PO ×2 (12:11→20:33)
[2024-06-18] MEDS: SODIUM CHLORIDE 0.9% IV 1,000 ML 75 ML IV CONT (14:39)
[2024-06-18] MEDS: MELATONIN 3 MG TABLET 6 MG PO (20:33)
[2024-06-18] MEDS: traZODone HCL 50 MG TABLET PO (20:34)
[2024-06-18] MEDS: ATORVASTATIN 10 MG TABLET PO (20:34)
[2024-06-19] VITALS (12 sets, daily range): BP systolic 94–168; BP diastolic 52–88; PULSE 53–78; RESP 10–18; TEMP 36.2–36.6; O2SAT 95–98
--- NOTE | 2024-06-19 | ECHO_ITS ---
Patient Info Name: Robbin Newby Age: 89 years : 1935 Gender: Male Ht: 67 in Wt: 190 lbs BSA: 2.04 m2 HR: 60 bpm BP: 99 / 64 mmHg Heart Rhythm: Sinus Rhythm Technical Quality: Fair Exam Date: 06/19/2024 11:25 AM Exam Location: Echo Lab Patient Status: Outpatient Admit Date: 06/14/2024 Staff Ordering Physician: Oumar Penny MD Regulatory Internship: Mindi Ardon RDCS Attending Provider: Ana Cristina La MD Exam Type: CA echo doppler color flow Study Info Indications R55 - Syncope and collapse Complete two-dimensional, color flow and Doppler transthoracic echocardiogram is performed. This was a technically difficult study. Summary 1. Complete two-dimensional, color flow and Doppler transthoracic echocardiogram is performed. This was a technically difficult study. 2. The left ventricle size normal. The LV systolic function is hyperdynamic. LVEF is greater than 70%. 3. The right ventricular size and systolic function is normal. 4. It is difficult to determine if the aortic valve is trileaflet based on the available images. The aortic valve leaflets do appear calcific however the velocities and mean gradient across the aortic valve does not suggest stenosis. Left Ventricle The left ventricle size normal. The LV systolic function is hyperdynamic. LVEF is greater than 70%. Right Ventricle The right ventricular size and systolic function is normal. Left Atria Left atrial chamber dimension is normal. Right Atria Right atrial chamber dimension is normal. Aortic Valve It is difficult to determine if the aortic valve is trileaflet based on the available images. The aortic valve leaflets do appear calcific however the velocities and mean gradient across the aortic valve does not suggest stenosis. Pulmonic Valve The pulmonic valve is not well visualized. Mitral Valve The mitral valve is sclerotic. There does not appear to be any significant mitral regurgitation found on this study. Tricuspid Valve Tricuspid valve is not well visualized. It does not appear to be any significant tricuspid valve regurgitation. Pericardium/Pleural There is small pericardial effusion. Left Ventricular Outflow Tract Name Value Normal LVOT 2D LVOT Diameter 2.0 cm LVOT Doppler LVOT Peak Gradient 4 mmHg LVOT Mean Gradient 2 mmHg LVOT VTI 25 cm LVOT VTI/AV VTI Ratio 0.8 LVOT Stroke Volume 82 ml LVOT CO 4.1 l/min LVOT CI 2.0 l/min/m2 Pulmonic Valve Name Value Normal RVOT Doppler RVOT Peak Gradient 1 mmHg PV Doppler PV Peak Gradient 4 mmHg Mitral Valve Name
[2024-06-19 06:30] LABS: Basophils Absolute Auto 0.1 K/mm3 (0.0-0.1); Basophils Percent Auto 0.9 % (0.2-1.2); Eosinophils Absolute Auto 0.4 K/mm3 (0-0.3); Hematocrit 30.6 % (42.0-52.0); Hemoglobin 10.1 g/dL (14.0-18.0); Immature Granulocyte Absolute 0.05 K/mm3 (0.00-0.031); Immature Granulocyte Percent A 0.5 % (0-0.5); Lymphocytes Absolute Auto 1.76 K/mm3 (0.9-3.2); Lymphocytes Percent Auto 18.2 % (18.3-44.2); Mean Corpuscular Hemoglobin 31.9 pg (26-34); Mean Corpuscular Volume 96.5 fl (80-100); Mean Platelet Volume 11.1 fl (7.4-10.4); Monocytes Absolute Auto 0.9 K/mm3 (0.1-0.6); Monocytes Percent Auto 9.7 % (2.6-8.5); Neutrophils Absolute Auto 6.4 K/mm3 (1.3-6.7); Neutrophils Percent Auto 66.7 % (45.5-73.1); Platelet Count Result 319 k/mm3 (150-375); Red Blood Count 3.17 M/mm3 (4.6-6.20); Red Cell Distribution Width 12.7 % (11.5-14.5); White Blood Count 9.7 K/mm3 (4.5-10.0)
[2024-06-19 06:39] LABS: Alanine Aminotransferase 13 U/L (6-50); Albumin Level 3.5 g/dL (3.5-5.1); Alkaline Phosphatase 58 U/L (38-126); Anion Gap 8 mmol/L (4-12); Aspartate Amino Transferase 23 U/L (17-59); Bilirubin,Total 0.5 mg/dL (0.2-1.3); Blood Urea Nitrogen 29 mg/dL (9-20); Carbon Dioxide 22 mmol/L (22-30); Chloride 105 mmol/L (98-107); Estimated CRCL calculation 35 ml/min; Estimated Glomerular Filt Rate 48; Glucose 90 mg/dL (65-110); Potassium 4.1 mmol/L (3.4-5.0); Sodium 135 mmol/L (137-145)
[2024-06-19] MEDS: APIXABAN 5 MG TABLET PO ×2 (08:07→21:08)
[2024-06-19] MEDS: lisinopriL 20 MG TABLET 40 MG PO (08:07)
[2024-06-19] MEDS: amLODIPine BESYLATE 10 MG TABLET PO (08:07)
[2024-06-19] MEDS: FERROUS SULFATE 325 MG TABLET DR BY MOUTH ×2 (08:07→17:24)
[2024-06-19] MEDS: rOPINIRole HCL 1 MG TABLET 3 MG PO (08:07)
[2024-06-19] MEDS: SULFAMETHOXAZOLE/TRIMETHOPRIM 800/160 MG DS TABLET 1 TAB PO ×2 (08:07→21:08)
[2024-06-19] MEDS: FINASTERIDE 5 MG TABLET PO (08:07)
[2024-06-19] MEDS: THERAPEUTIC MULTIVITAMINS/MINERALS TAB (*BKC) 1 TABLET PO (08:07)
--- NOTE | 2024-06-19 09:30 | ECG_ITS ---
Test Date: 2024-06-19 09:44:48 Measurements Intervals [place] Rate: 49 P: 76 [place]: 307 QRS: -60 QRSD: 108 T: -9 QT: 458 QTc: 417 Interpretive Statements SINUS BRADYCARDIA WITH FIRST DEGREE AV BLOCK WITH OCCASIONAL SUPRAVENTRICULAR PREMATURE COMPLEXES LEFT ANTERIOR FASCICULAR BLOCK [QRS AXIS <= -45, QR IN I, RS IN II] ANTEROSEPTAL MYOCARDIAL INFARCTION [40+ ms Q WAVE IN V1-V4], OF INDETERMINATE AGE Compared to ECG 06/15/2024 17:24:02 Myocardial infarct finding still present Electronically Signed On 06-19-2024 13:18:23 CDT by Avery Bravo M.D.
[2024-06-19 09:32] LABS: Glucose Point of Care 129 mg/dl (65-105)
[2024-06-19 10:26] LABS: Troponin I 0.032 ng/mL (0.000-0.034)
--- NOTE | 2024-06-19 12:04 | PM.CNCAR ---
Assessment and Plan Assessment and plan (1) Syncope: Qualifiers: Syncope type: unspecified Qualified Code(s): R55 - Syncope and collapse Code(s): R55 - Syncope and collapse Status: Acute Assessment and Plan: He has a history of syncope for which a loop recorder has been implanted. We can obtain device interrogation, however, patient's states she does not wish to pursue any invasive medical interventions because of the patient's advanced dementia. Therefore, there is no benefit of continuing any cardiac workup in this regard. As patient's expressed that she and the patient do not wish to take measures to prolong his life, would recommend discussion aimed toward palliative care. (2) Ventricular tachycardia: Code(s): I47.20 - Ventricular tachycardia, unspecified Status: Acute Assessment and Plan: Telemetry reviewed. He did not have VT, this was artifact. Plan Cardiology will sign off. Please call with questions. History of Present Illness History of Present Illness Consult date/time: 06/19/24 12:04 Requesting physician: Oumar Penny MD Consult reason: Other (syncope, VT) Reason For Visit: Syncope Narrative: Robbin Newby is an 89 year old male with paroxysmal atrial fibrillation and syncope with loop recorder in place since 2020. According to his medical record there have not been any findings on his loop recorder that would prompt permanent pacemaker implantation by his established forging engineer. He has been admitted to the hospital for syncope which occurred at his nursing facility and he had another syncopal event this morning after physical therapy. Patient is unable to give any history as he has advanced dementia and is minimally verbal. Therefore, I was unable to gain any details about symptoms prior to these events. This far, no evidence of significant bradycardia, pauses, high-grade AV blocks seen on telemetry. Review of Systems Review of Systems: ROS unobtainable: Yes unobtainable due to medical condition and unobtainable due to mental status [facility] Past Medical History Medical History Allergic rhinitis Alzheimer's dementia Anemia Anosmia Atrial fibrillation BPH (benign prostatic hyperplasia) Chronic kidney disease, stage 3 Coronary artery disease Debilitated GERD (gastroesophageal reflux disease) Hypertension MGUS (monoclonal gammopathy of unknown significance) Obstructive sleep apnea Restless legs syndrome Sinus node dysfunction Stasis dermatitis of both legs Surgical History Surgical History S/P carotid endarterectomy Social History Social History Smoking packs per day: 2.5 Smoking cigarettes per day: 50.0 Years smoked: 20 Smoking pack-years: 50.00 Smoking status: Former smoker Tobacco type: cigarettes Second hand tobacco smoke exposure: No Alcohol intake: former Substance use: never Substance use type: does not use Lack of Transportation: No Lack of Food: Never True Current Housing: I Have Housing Concerned About Future Housing: No Difficulty Paying Gas/Electric Bills: No Difficulty Paying for Meds: No Currently Unemployed: No Difficulty w/ Childcare or Family Care: No Living arrangements: with family Occupation/Education: retired Gender identity (if verbalized by the patient): Male Sexual Orientation (if Verbalized by the Patient): Straight or Heterosexual Spiritual care concerns: No Agree to blood products: Yes Meds Home Medications and Allergies Home Medications Medication Instructions Recorded Confirmed Type atorvastatin 10 mg tablet 10 mg PO HS 03/20/20 06/14/24 History apixaban 5 mg tablet (Eliquis) 5 mg PO Q12H 03/02/21 06/16/24 History lisinopril 20 mg tablet 40 mg PO DAILY 08/10/21 06/14/24 History
--- NOTE | 2024-06-19 13:09 | PM.IMPN ---
Progress Note: A&P Assessment and Plan (1) Syncope: Qualifiers: Syncope type: unspecified Qualified Code(s): R55 - Syncope and collapse Code(s): R55 - Syncope and collapse Status: Acute Assessment and Plan: - EKG, initial: Sinus bradycardia with first-degree AV block with occasional supraventricular premature complexes and nonconducted atrial premature complex, possible right ventricular conduction delay, left anterior fascicular block, and anteroseptal CO of indeterminate age - EKG, previous (10/2023): Sinus rhythm with first-degree AV block with frequent supraventricular premature complexes, left anterior fascicular block, possible anterior CO of indeterminate age. - EKG last evening showed: Sinus bradycardia with first degree AV block ectopic atrial complexes with non-conducted atrial premature complex possible right ventricular conduction delay. - CXR: Small lung volumes with minimal left basilar atelectasis - discussed initiating further cardiac workup with the patient's , she would like to forego citing that even if a heart attack was found they do not want procedures/surgeries or drastic measures. would reconsider pacemaker if indicated. - suspect syncope related to hypotension and responded well to IV fluids, continue fluids and monitor I&Os. - telemetry monitoring- Sinus bradycardia 52. - Patient was having a bowel movement with therapy this morning when he had a syncopal episode on the commode. Patient aroused once in bed. Patient ordered and Echo, EEG, Head CT, Troponin, NS @ 75 ml/hr, and Cardiology consult ordered. - Head CT- negative, Troponin 0.032. - Echocardiogram showed: Summary 1. Complete two-dimensional, color flow and Doppler transthoracic echocardiogram is performed. This was a technically difficult study. 2. The left ventricle size normal. The LV systolic function is hyperdynamic. LVEF is greater than 70%. 3. The right ventricular size and systolic function is normal. 4. It is difficult to determine if the aortic valve is trileaflet based on the available images. The aortic valve leaflets do appear calcific however the velocities and mean gradient across the aortic valve does not suggest stenosis. - Electrocardiogram- SINUS BRADYCARDIA WITH FIRST DEGREE AV BLOCK WITH OCCASIONAL SUPRAVENTRICULAR PREMATURE COMPLEXES - Nurse helped set up loop recorder transmitter for manager paper to get a report from the monitor. (2) CEE (acute kidney injury): Code(s): N17.9 - Acute kidney failure, unspecified Status: Acute Assessment and Plan: - CEE superimposed on CKD - 06/14/24: BUN 34, creatinine 1.8, and GFR 36 - 06/15/24: BUN 28, creatinine 1.30, and GFR 52 - 06/16/24: BUN 32, creatinine 1.20, and GFR 57 - 06/17/24: BUN 27, creatinine 1.00, and GFR >60 - 06/18/24: BUN 23, creatinine 1.10, and GFR >60 - 06/19/24: BUN 29, creatinine 1.40, and GFR 48. - baseline creatinine per [place] lab work 1.0-1.3, per paperwork from [facility] the patient's baseline creatinine is 1.3 - suspect hypovolemia due to hypertension and great response to IV fluids, will rehydrate and reassess renal function. Consider Nephrology workup if renal function does not respond well to current treatment plan. - trend renal function - trend electrolytes, correct as needed - NS @ 75 ml/hr, encourage PO intake. (3) Acute UTI: Code(s): N39.0 - Urinary tract infection, site not specified Status: Acute Assessment and Plan: - ann exchanged on 06/14 - UA: 1+ protein, 1+ blood, 3+ leuk esterase, 6-10 RBC, 21-50 WBC, no epithelial cells. - UC culture negative - previous micro reviewed, most recent in October of 2023 which showed E coli pansensitive - may need a referral to Urology at d/c. patient has previously seen Evon EDMONDS. plans to call on Tuesday for an appt. continue finasteride and Ann in interim. - WBC 9.7. Start Bactrim 1 tab q12. (4) Hypertension:
--- NOTE | 2024-06-19 13:12 | P.NEURO_ITS ---
Neurology EEG Report General Information Date of Study: 06/19/24 TEST eeg DIAGNOSIS syncopal episode CONDITION OF RECORDING drowsy and sleep EEG NUMBER [id number] CLINICAL HISTORY syncopal episode EEG DESCRIPTION whole record consist of diffuse low-voltage 15 to 18 hertz per 2nd beta activity admixed with low-voltage 6 to 7 hertz per 2nd theta and intermittent 3 to 4 hertz per 2nd delta activity. For ventilation not done. Photic stimulat ion not done. Non paroxysmal. Nonfocal. Nonlateralizing. IMPRESSION Abnormal record due to the absence of normal background rhythm and due to the presence of bihemispheric slow activity without any paroxysmal discharge these abnormalities are suggestive of underlying organic or metabolic encephalopathy or postictal state there is no active seizure on this tracing.
[2024-06-19] MEDS: SODIUM CHLORIDE 0.9% IV 1,000 ML 75 ML IV CONT (14:00)
[2024-06-19 16:45] LABS: Troponin I 0.021 ng/mL (0.000-0.034)
[2024-06-19] MEDS: QUEtiapine FUMARATE 12.5 MG TABLET PO (21:08)
[2024-06-19] MEDS: traZODone HCL 50 MG TABLET PO (21:08)
[2024-06-19] MEDS: MELATONIN 3 MG TABLET 6 MG PO (21:08)
[2024-06-19] MEDS: ATORVASTATIN 10 MG TABLET PO (21:08)
[2024-06-20] VITALS (10 sets, daily range): BP systolic 130–172; BP diastolic 43–79; PULSE 55–79; RESP 16–18; TEMP 36.5–36.6; O2SAT 95–100
[2024-06-20] MEDS: SODIUM CHLORIDE 0.9% IV 1,000 ML 75 ML IV CONT ×2 (02:14→16:18)
[2024-06-20 05:56] LABS: Basophils Absolute Auto 0.1 K/mm3 (0.0-0.1); Basophils Percent Auto 1.2 % (0.2-1.2); Eosinophils Absolute Auto 0.4 K/mm3 (0-0.3); Eosinophils Percent Auto 4.3 % (0-4.4); Hemoglobin 9.6 g/dL (14.0-18.0); Immature Granulocyte Absolute 0.04 K/mm3 (0.00-0.031); Immature Granulocyte Percent A 0.4 % (0-0.5); Immature Platelet Fraction Pct 6.6 % (0.9-11.2); Lymphocytes Absolute Auto 1.44 K/mm3 (0.9-3.2); Lymphocytes Percent Auto 15.7 % (18.3-44.2); Mean Corpuscular Hemoglobin 32.5 pg (26-34); Mean Corpuscular Volume 101.7 fl (80-100); Mean Platelet Volume 11.9 fl (7.4-10.4); Monocytes Absolute Auto 0.7 K/mm3 (0.1-0.6); Neutrophils Absolute Auto 6.5 K/mm3 (1.3-6.7); Neutrophils Percent Auto 70.4 % (45.5-73.1); Platelet Count Result 254 k/mm3 (150-375); Red Blood Count 2.95 M/mm3 (4.6-6.20); Red Cell Distribution Width 13.1 % (11.5-14.5); White Blood Count 9.2 K/mm3 (4.5-10.0)
[2024-06-20 06:44] LABS: Platelet Estimate Adequate (Adequate); Schistocytes None Seen
[2024-06-20] MEDS: SULFAMETHOXAZOLE/TRIMETHOPRIM 800/160 MG DS TABLET 1 TAB PO (08:33)
[2024-06-20] MEDS: APIXABAN 5 MG TABLET PO ×2 (08:33→21:11)
[2024-06-20] MEDS: rOPINIRole HCL 1 MG TABLET 3 MG PO (08:33)
[2024-06-20] MEDS: FERROUS SULFATE 325 MG TABLET DR BY MOUTH ×2 (08:34→16:18)
[2024-06-20] MEDS: lisinopriL 20 MG TABLET 40 MG PO (08:34)
[2024-06-20] MEDS: FINASTERIDE 5 MG TABLET PO (08:34)
[2024-06-20] MEDS: THERAPEUTIC MULTIVITAMINS/MINERALS TAB (*BKC) 1 TABLET PO (08:34)
[2024-06-20] MEDS: amLODIPine BESYLATE 10 MG TABLET PO (08:34)
--- NOTE | 2024-06-20 10:11 | PM.IMPN ---
Progress Note: A&P Assessment and Plan (1) Syncope: Qualifiers: Syncope type: unspecified Qualified Code(s): R55 - Syncope and collapse Code(s): R55 - Syncope and collapse Status: Acute Assessment and Plan: EKG, initial: Sinus bradycardia with first-degree AV block with occasional supraventricular premature complexes and nonconducted atrial premature complex, possible right ventricular conduction delay, left anterior fascicular block, and anteroseptal AR of indeterminate age EKG, previous (10/2023): Sinus rhythm with first-degree AV block with frequent supraventricular premature complexes, left anterior fascicular block, possible anterior AR of indeterminate age. EKG last evening showed: Sinus bradycardia with first degree AV block ectopic atrial complexes with non-conducted atrial premature complex possible right ventricular conduction delay. CXR: Small lung volumes with minimal left basilar atelectasis- discussed initiating further cardiac workup with the patient's , she would like to forego citing that even if a heart attack was found they do not want procedures/surgeries or drastic measures. would reconsider pacemaker if indicated. Suspect syncope related to hypotension and responded well to IV fluids, continue fluids and monitor I&Os. Blood pressure as low as 94/52 yesterday. - telemetry monitoring- Sinus bradycardia 52. - Patient was having a bowel movement with therapy yesterday and he had a syncopal episode on the commode. Patient aroused once in bed. Patient ordered and Echo, EEG, Head CT, Troponin, NS @ 75 ml/hr, and Cardiology consult ordered. - Head CT- negative, Troponin peaked at 0.032, trending down - Echocardiogram showed: 1. Complete two-dimensional, color flow and Doppler transthoracic echocardiogram is performed. This was a technically difficult study. 2. The left ventricle size normal. The LV systolic function is hyperdynamic. LVEF is greater than 70%. 3. The right ventricular size and systolic function is normal. 4. It is difficult to determine if the aortic valve is trileaflet based on the available images. The aortic valve leaflets do appear calcific however the velocities and mean gradient across the aortic valve does not suggest stenosis. - Electrocardiogram- SINUS BRADYCARDIA WITH FIRST DEGREE AV BLOCK WITH OCCASIONAL SUPRAVENTRICULAR PREMATURE COMPLEXES - Nurse helped set up loop recorder transmitter for user acceptance tester to get a report from the monitor. 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 Labs pending this morning - baseline creatinine per [place] lab work 1.0-1.3, per paperwork from [facility] the patient's baseline creatinine is 1.3 - suspect hypovolemia due to hypertension and great response to IV fluids, will rehydrate and reassess renal function. Consider Nephrology workup if renal function does not respond well to current treatment plan. - trend renal function - trend electrolytes, correct as needed - NS @ 75 ml/hr, encourage PO intake. (3) Acute UTI: Code(s): N39.0 - Urinary tract infection, site not specified Status: Acute Assessment and Plan: Nicole exchanged on 06/14 WBC 9.7. UA: 1+ protein, 1+ blood, 3+ leuk esterase, 6-10 RBC, 21-50 WBC, no epithelial cells. UC culture negative (sent 06/14 @ 1409). Previous micro reviewed, most recent in October of 2023 which showed E coli pansensitive - may need a referral to Urology at d/c. patient has previously seen Evon EDMONDS. plans to call on Tuesday for an appt. continue daxa
--- NOTE | 2024-06-20 10:38 | PCNFU ---
Nutrition Follow-Up Complete: Unintended weight loss as related to dementia as evidenced by weight loss of 31 ibs(14%) > 6 months. Goal: Adequate Intake of at least 50% of meals/supplements Patient is meeting goal. No new goal. Pt current nutrition is Regular with Ensure Compact BID. Last recorded weight is 86.3 kg, no new weight to report. Bowel Motility: +BM reported 06/20 Labs Reviewed:Hct 30.0,Hgb 9.6 Meds Noted:NS, Eliquis,Lipitor, MVI Skin: WNL Additional Notes: Patient remains on a regular diet. Oral intake has been good 90-100% of meals. Diet supplements of Ensure Compact are being consumed on trays providing an additional 220 kcal and 9 gm protein. Agree with diet orders. RD will monitor weight, labs, skin, oral intake, meds every 7 days.
[2024-06-20 14:55] LABS: Alanine Aminotransferase 11 U/L (6-50); Albumin Level 3.3 g/dL (3.5-5.1); Alkaline Phosphatase 56 U/L (38-126); Anion Gap 7 mmol/L (4-12); Aspartate Amino Transferase 20 U/L (17-59); Bilirubin,Total 0.1 mg/dL (0.2-1.3); Blood Urea Nitrogen 31 mg/dL (9-20); Calcium 8.4 mg/dL (8.4-10.2); Carbon Dioxide 24 mmol/L (22-30); Chloride 103 mmol/L (98-107); Estimated CRCL calculation 31 ml/min; Estimated Glomerular Filt Rate 41; Glucose 108 mg/dL (65-110); Potassium 4.4 mmol/L (3.4-5.0); Sodium 134 mmol/L (137-145)
[2024-06-20 17:00] LABS: Add Urine Microscopic? YES; Appearance Urine Clear (Clear); Bacteria Urine None Seen /hpf; Bilirubin Urine Negative (Negative); Blood Urine 3+ (Negative); Color Urine Yellow (Yellow); Glucose Urine UA Negative (Negative); Ketones Urine Negative (Negative); Leukocyte Esterase Ur Trace LEU/UL (Negative); Nitrate Urine Negative (Negative); Non Pathogenic Casts 0-2; Protein Urine Negative (Negative); RBC Urine >100 /hpf (0-2); Specific Grav Ur 1.015 (1.001-1.035); Squamous Epithelial Cell Urine None Seen /hpf (Few); Urobilinogen Urine 0.2 mg/dL (<2.0); WBC Urine 0-5 /hpf (0-3); pH Urine 6.5 (5.0-9.0)
[2024-06-20 17:27] LABS: Creatinine Urine 75.8 mg/dL; Urea Random Urine 643 MG/DL
[2024-06-20 17:37] LABS: Sodium Urine Random 163 meq/L
[2024-06-20] MEDS: traZODone HCL 50 MG TABLET PO (21:10)
[2024-06-20] MEDS: ATORVASTATIN 10 MG TABLET PO (21:10)
[2024-06-20] MEDS: QUEtiapine FUMARATE 12.5 MG TABLET PO (21:11)
[2024-06-20] MEDS: MELATONIN 3 MG TABLET 6 MG PO (21:11)
[2024-06-21] VITALS: PULSE 48
[2024-06-21 04:00] VITALS: PULSE 46
[2024-06-21 05:59] LABS: Basophils Absolute Auto 0.1 K/mm3 (0.0-0.1); Basophils Percent Auto 1.4 % (0.2-1.2); Eosinophils Absolute Auto 0.6 K/mm3 (0-0.3); Eosinophils Percent Auto 7.2 % (0-4.4); Hematocrit 25.6 % (42.0-52.0); Hemoglobin 8.6 g/dL (14.0-18.0); Immature Granulocyte Absolute 0.02 K/mm3 (0.00-0.031); Immature Granulocyte Percent A 0.3 % (0-0.5); Lymphocytes Absolute Auto 1.44 K/mm3 (0.9-3.2); Lymphocytes Percent Auto 18.8 % (18.3-44.2); Mean Corpuscular HGB Conc 33.6 g/dl (32-36); Mean Corpuscular Volume 98.1 fl (80-100); Mean Platelet Volume 11.1 fl (7.4-10.4); Monocytes Absolute Auto 0.7 K/mm3 (0.1-0.6); Monocytes Percent Auto 8.5 % (2.6-8.5); Neutrophils Absolute Auto 4.9 K/mm3 (1.3-6.7); Neutrophils Percent Auto 63.8 % (45.5-73.1); Platelet Count Result 278 k/mm3 (150-375); Red Blood Count 2.61 M/mm3 (4.6-6.20); White Blood Count 7.7 K/mm3 (4.5-10.0)
[2024-06-21 06:10] LABS: Alanine Aminotransferase 11 U/L (6-50); Alkaline Phosphatase 56 U/L (38-126); Anion Gap 5 mmol/L (4-12); Aspartate Amino Transferase 23 U/L (17-59); Bilirubin,Total 0.2 mg/dL (0.2-1.3); Blood Urea Nitrogen 25 mg/dL (9-20); Calcium 8.7 mg/dL (8.4-10.2); Carbon Dioxide 22 mmol/L (22-30); Chloride 108 mmol/L (98-107); Estimated CRCL calculation 31 ml/min; Estimated Glomerular Filt Rate 41; Glucose 84 mg/dL (65-110); Potassium 4.4 mmol/L (3.4-5.0); Sodium 135 mmol/L (137-145)
[2024-06-21] MEDS: SODIUM CHLORIDE 0.9% IV 1,000 ML 75 ML IV CONT (06:12)
[2024-06-21 06:31] VITALS: BP 145/89; PULSE 62; RESP 16; TEMP 36.7; O2SAT 100
[2024-06-21 08:00] VITALS: PULSE 79
[2024-06-21] MEDS: amLODIPine BESYLATE 10 MG TABLET PO (08:13)
[2024-06-21] MEDS: THERAPEUTIC MULTIVITAMINS/MINERALS TAB (*BKC) 1 TABLET PO (08:14)
[2024-06-21] MEDS: FERROUS SULFATE 325 MG TABLET DR BY MOUTH (08:14)
[2024-06-21] MEDS: FINASTERIDE 5 MG TABLET PO (08:14)
[2024-06-21] MEDS: rOPINIRole HCL 1 MG TABLET 3 MG PO (08:14)
[2024-06-21] MEDS: lisinopriL 20 MG TABLET 40 MG PO (08:14)
[2024-06-21] MEDS: APIXABAN 5 MG TABLET PO (08:14)
--- NOTE | 2024-06-21 08:44 | PM.IMPN ---
Progress Note: A&P Assessment and Plan (1) Syncope: Qualifiers: Syncope type: unspecified Qualified Code(s): R55 - Syncope and collapse Code(s): R55 - Syncope and collapse Status: Acute Assessment and Plan: EKG, initial: Sinus bradycardia with first-degree AV block with occasional supraventricular premature complexes and nonconducted atrial premature complex, possible right ventricular conduction delay, left anterior fascicular block, and anteroseptal FL of indeterminate age EKG, previous (10/2023): Sinus rhythm with first-degree AV block with frequent supraventricular premature complexes, left anterior fascicular block, possible anterior FL of indeterminate age. EKG last evening showed: Sinus bradycardia with first degree AV block ectopic atrial complexes with non-conducted atrial premature complex possible right ventricular conduction delay. CXR: Small lung volumes with minimal left basilar atelectasis- discussed initiating further cardiac workup with the patient's , she would like to forego citing that even if a heart attack was found they do not want procedures/surgeries or drastic measures. would reconsider pacemaker if indicated. Suspect syncope related to hypotension and responded well to IV fluids, continue fluids and monitor I&Os. Blood pressure as low as 94/52 yesterday. - telemetry monitoring- Sinus bradycardia 52. - Patient was having a bowel movement with therapy yesterday and he had a syncopal episode on the commode. Patient aroused once in bed. Patient ordered and Echo, EEG, Head CT, Troponin, NS @ 75 ml/hr, and Cardiology consult ordered. - Head CT- negative, Troponin peaked at 0.032, trending down - Echocardiogram showed: 1. Complete two-dimensional, color flow and Doppler transthoracic echocardiogram is performed. This was a technically difficult study. 2. The left ventricle size normal. The LV systolic function is hyperdynamic. LVEF is greater than 70%. 3. The right ventricular size and systolic function is normal. 4. It is difficult to determine if the aortic valve is trileaflet based on the available images. The aortic valve leaflets do appear calcific however the velocities and mean gradient across the aortic valve does not suggest stenosis. - Electrocardiogram- SINUS BRADYCARDIA WITH FIRST DEGREE AV BLOCK WITH OCCASIONAL SUPRAVENTRICULAR PREMATURE COMPLEXES - Nurse helped set up loop recorder transmitter for animal laboratory technician to get a report from the monitor. 06/21 card notes reviewed: He has a history of syncope for which a loop recorder has been implanted. 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 Labs pending this morning - baseline creatinine per [place] lab work 1.0-1.3, per paperwork from [facility] the patient's baseline creatinine is 1.3 - suspect hypovolemia due to hypertension and great response to IV fluids, will rehydrate and reassess renal function. Consider Nephrology workup if renal function does not respond well to current treatment plan. - trend renal function - trend electrolytes, correct as needed - NS @ 75 ml/hr, encourage PO intake. 06/21- cr/bun had been stable for the last few days (3) Acute UTI: Code(s): N39.0 - Urinary tract infection, site not specified Status: Acute Assessment and Plan: Nicole exchanged on 06/14 WBC 9.7. UA: 1+ protein, 1+ blood, 3+
[2024-06-21] MEDS: INFLUENZA VACCINE HIGH DOSE (>64) 180 MCG/0.5 ML SYRINGE IM (11:43)
--- NOTE | 2024-06-21 11:58 | PM.DS ---
DS: Admitting Diagnosis Discharge Date 06/21 Admitting Diagnosis syncope DS: Discharge Diagnosis Discharge Diagnosis (1) Syncope: Qualifiers: Syncope type: unspecified Qualified Code(s): R55 - Syncope and collapse Code(s): R55 - Syncope and collapse Status: Acute Assessment and Plan: EKG, initial: Sinus bradycardia with first-degree AV block with occasional supraventricular premature complexes and nonconducted atrial premature complex, possible right ventricular conduction delay, left anterior fascicular block, and anteroseptal NH of indeterminate age EKG, previous (10/2023): Sinus rhythm with first-degree AV block with frequent supraventricular premature complexes, left anterior fascicular block, possible anterior NH of indeterminate age. EKG last evening showed: Sinus bradycardia with first degree AV block ectopic atrial complexes with non-conducted atrial premature complex possible right ventricular conduction delay. CXR: Small lung volumes with minimal left basilar atelectasis- discussed initiating further cardiac workup with the patient's , she would like to forego citing that even if a heart attack was found they do not want procedures/surgeries or drastic measures. would reconsider pacemaker if indicated. Suspect syncope related to hypotension and responded well to IV fluids, continue fluids and monitor I&Os. Blood pressure as low as 94/52 yesterday. - telemetry monitoring- Sinus bradycardia 52. - Patient was having a bowel movement with therapy yesterday and he had a syncopal episode on the commode. Patient aroused once in bed. Patient ordered and Echo, EEG, Head CT, Troponin, NS @ 75 ml/hr, and Cardiology consult ordered. - Head CT- negative, Troponin peaked at 0.032, trending down - Echocardiogram showed: 1. Complete two-dimensional, color flow and Doppler transthoracic echocardiogram is performed. This was a technically difficult study. 2. The left ventricle size normal. The LV systolic function is hyperdynamic. LVEF is greater than 70%. 3. The right ventricular size and systolic function is normal. 4. It is difficult to determine if the aortic valve is trileaflet based on the available images. The aortic valve leaflets do appear calcific however the velocities and mean gradient across the aortic valve does not suggest stenosis. - Electrocardiogram- SINUS BRADYCARDIA WITH FIRST DEGREE AV BLOCK WITH OCCASIONAL SUPRAVENTRICULAR PREMATURE COMPLEXES - Nurse helped set up loop recorder transmitter for salesperson fashion accessories to get a report from the monitor. 06/21 card notes reviewed: He has a history of syncope for which a loop recorder has been implanted. 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 Labs pending this morning - baseline creatinine per [place] lab work 1.0-1.3, per paperwork from [facility] the patient's baseline creatinine is 1.3 - suspect hypovolemia due to hypertension and great response to IV fluids, will rehydrate and reassess renal function. Consider Nephrology workup if renal function does not respond well to current treatment plan. - trend renal function - trend electrolytes, correct as needed - NS @ 75 ml/hr, encourage PO intake. 06/21- cr/bun had been stable for the last few days (3) Acute UTI: Code(s): N39.0 - Urinary tract infection, site not specified Status: Acute As
[2024-06-21 12:00] VITALS: PULSE 63
== END 2024-06-21 13:48 ==
LOC: ANHED 14:49 → ANH3MEDSUR 15:35 → ANH2MED 16:19
PROVIDERS: Internal Medicine; Nurse Practitioner Family; Student in an Organized Health Care Education/Training Program; Admitting Provider Family Medicine; Emergency Provider Emergency Medicine; PCP Family Medicine; Visit Provider Nurse Practitioner Acute Care
DX: N17.9 Acute kidney failure, unspecified (principal); R55 Syncope and collapse; N39.0 Urinary tract infection, site not specified; G30.9 Alzheimer's disease, unspecified; F02.80 Dementia in other diseases classified elsewhere, unspecified severity, without behavioral disturbance, psychotic disturbance, mood disturbance, and anxiety; I25.10 Atherosclerotic heart disease of native coronary artery without angina pectoris; I48.0 Paroxysmal atrial fibrillation; R00.1 Bradycardia, unspecified; I44.0 Atrioventricular block, first degree; I12.9 Hypertensive chronic kidney disease with stage 1 through stage 4 chronic kidney disease, or unspecified chronic kidney disease; N18.30 Chronic kidney disease, stage 3 unspecified; N40.0 Benign prostatic hyperplasia without lower urinary tract symptoms; E78.5 Hyperlipidemia, unspecified; G47.33 Obstructive sleep apnea (adult) (pediatric); Z23 Encounter for immunization; Z66 Do not resuscitate; Z79.01 Long term (current) use of anticoagulants; Z79.899 Other long term (current) drug therapy; Z87.891 Personal history of nicotine dependence
CPT/HCPCS: 36415; 70450; 71046; 80053; 81001; 82570; 82948; 84300; 84443; 84484; 84540; 85025; 85055; 87040; 87086; 90471; 90662; 93005; 93306; 94762; 95816; 96361; 96365; 97110; 97116; 97162; 97165; 97530; 97535; 99285; A9270; G0008; G0378; J0696; J7030; J7120

== ENCOUNTER 2024-06-30 08:42 | Emergency (ER) | payer MEDICARE, SELFPAY ==
--- NOTE | 2024-06-30 08:49 | ED.GENADULT ---
HPI - General Adult General Chief complaint: Altered Mental Status Stated complaint: unresponsive History of Present Illness HPI narrative: 89-year-old male that is DNI DNR comfort care presenting to the emergency department for evaluation for decreased responsiveness. Patient was bradycardic and hypotensive when EMS arrived. Upon arrival to the emergency department patient's heart rate is in the 60s. Patient is saturating in mid 90s on 2 L of oxygen patient a blood pressure of 88/53. While patient was in the emergency department he did become more alert and appropriate and smiled and denies any complaints. Related Data Home Medications Medication Instructions Recorded Confirmed atorvastatin 10 mg tablet 10 mg PO HS 03/20/20 06/14/24 apixaban 5 mg tablet (Eliquis) 5 mg PO Q12H 03/02/21 06/16/24 lisinopril 20 mg tablet 40 mg PO DAILY 08/10/21 06/14/24 ropinirole 0.5 mg tablet 3 mg PO DAILY 11/12/23 06/14/24 amlodipine 5 mg tablet (Norvasc) 10 mg PO DAILY 06/14/24 06/14/24 cranberry fruit 450 mg tablet 450 mg PO DAILY 06/14/24 06/14/24 (cranberry) glucosamine 750 da-uirveh-dxf 1 1 tablet PO DAILY 06/14/24 06/14/24 625 mg-D3 1,000 fqzv-T-xmq-Bosw tablet (Xfweqxpqqyh-Nixvccibsgs-CVT with vit D) melatonin 3 mg tablet 6 mg PO HS 06/14/24 06/14/24 multivitamin with minerals 1 tablet PO DAILY 06/14/24 06/14/24 quetiapine 25 mg tablet 12.5 mg PO HS 06/14/24 06/14/24 trazodone 100 mg tablet 50 mg PO QHS 06/14/24 06/14/24 Allergies Allergy/AdvReac Type Severity Reaction Status Date / Time doxazosin Allergy Unknown Verified 06/30/24 09:23 hydrochlorothiazide Allergy Unknown Verified 06/30/24 09:23 hydrocodone [From [place]] Allergy Unknown Verified 06/30/24 09:23 oxycodone Allergy Hallucinati Verified 06/30/24 09:23 ng spironolactone Allergy Unknown Verified 06/30/24 09:23 Review of Systems Review of Systems: All systems reviewed & are unremarkable except as noted in HPI and below PMFSH Past Medical History Medical History Allergic rhinitis Alzheimer's dementia Anemia Anosmia Atrial fibrillation BPH (benign prostatic hyperplasia) Chronic kidney disease, stage 3 Coronary artery disease Debilitated GERD (gastroesophageal reflux disease) Hypertension MGUS (monoclonal gammopathy of unknown significance) Obstructive sleep apnea Restless legs syndrome Sinus node dysfunction Stasis dermatitis of both legs Surgical History Surgical History S/P carotid endarterectomy Social History Social History Smoking packs per day: 2.5 Smoking cigarettes per day: 50.0 Years smoked: 20 Smoking pack-years: 50.00 Smoking status: Former smoker Tobacco type: cigarettes Second hand tobacco smoke exposure: No Alcohol intake: former Substance use: never Substance use type: does not use Lack of Transportation: No Lack of Food: Never True Current Housing: I Have Housing Concerned About Future Housing: No Difficulty Paying Gas/Electric Bills: No Difficulty Paying for Meds: No Currently Unemployed: No Difficulty w/ Childcare or Family Care: No Living arrangements: with family Occupation/Education: retired Gender identity (if verbalized by the patient): Male Sexual Orientation (if Verbalized by the Patient): Straight or Heterosexual Spiritual care concerns: No Agree to blood products: Yes Exam Narrative: APPEARANCE: Well appearing, no pain, no distress, well-nourished. HEAD: normocephalic, atraumatic. EYES: PERRLA/EOMI, conjunctivae clear. NOSE: Normal no drainage EARS:TMS clear with good light reflex. THROAT: Pharynx clear, no exudate. NECK: Supple. No adenopathy, no masses. RESPIRATORY: Airway patent, respirations nonlabored. Clear to auscultation bilaterally, no rales, rhonchi, wheezing. CARDIOVASCULAR: Regular rate and rhythm without murmurs rubs or gallops. ABDOMINAL: Soft, nontender, nondistended, normal bowel sounds MUSCULOSKELETAL: Moves all extremities. Strength/ROM intact, No edema, No calf tenderness. NEURO: Alert. Cranial nerves II through XII intact. Grossly SKIN: Warm, dry. Normal Color Course Vital Signs Vital signs: Vital Signs Temperature 97.2 F L 06/30/24 08:51 Pulse Rate 42 L 06/30/24 08:51 Respiratory Rate 16 06/30/24 08:51 Blood Pressure 88/53 L 06/30/24 08:51 Pulse Oximetry 90 06/30/24 08:51 Oxygen Delivery Room Air 06/30/24 08:51 Temperature 97.3 F L 06/30/24 10:38 Pulse Rate 58 L 06/30/24 11:30 Respiratory Rate 18 06/30/24 11:30 Blood Pressure 145/62 H 06/30/24 11:30 Pulse Oximetry 96 06/30/24 11:30 Oxygen Delivery Nasal Cannula 06/30/24 09:06 Oxygen Flow Rate 4 06/30/24 09:06 Medical Decision Making MDM Narrative Medical decision making narrative: 89-year-old male who is DNI DNR comfort care presenting to the emergency department for evaluation after having an episode of unresponsiveness. Patient was bradycardic and hypotensive at his care facility and was brought into the emergency department. Family states she would have declined transport. Care coordination did meet with the patient and patient does not qualify for inpatient hospice but they are being provided information for outpatient hospice. Vital Signs Vital Signs: Vital Signs Temperature 97.2 F L 06/30/24 08:51 Pulse Rate 42 L 06/30/24 08:51 Respiratory Rate 16 06/30/24 08:51 Blood Pressure 88/53 L 06/30/24 08:51 Pulse Oximetry 90 06/30/24 08:51 Oxygen Delivery Room Air 06/30/24 08:51 Temperature 97.3 F L 06/30/24 10:38 Pulse Rate 58 L 06/30/24 11:30 Respiratory Rate 18 06/30/24 11:30 Blood Pressure 145/62 H 06/30/24 11:30 Pulse Oximetry 96 06/30/24 11:30 Oxygen Delivery Nasal Cannula 06/30/24 09:06 Oxygen Flow Rate 4 06/30/24 09:06 Discharge Plan Discharge Clinical Impression: Unresponsive, End of life care Patient Disposition: [facility] Living Condition: Stable Instructions: Antibiotic Form Additional Instructions: Hospice care will contact you. If you have any questions or concerns please call or return to the emergency department. Prescriptions: No Action Eliquis 5 mg tablet 5 mg PO Q12H lisinopril 20 mg tablet 40 mg PO DAILY finasteride 5 mg tablet 5 mg PO DAILY Qty: 90 1RF atorvastatin 10 mg tablet 10 mg PO HS ropinirole 0.5 mg tablet 3 mg PO DAILY quetiapine 25 mg Tablet 12.5 mg PO HS melatonin 3 mg Tablet 6 mg PO HS multivitamin with minerals Tablet 1 tablet PO DAILY cranberry 450 mg Tablet 450 mg PO DAILY Aoihieal-Lkvriy-LIG with vit D 750-625-1,000 mg-mg-unit Tablet 1 tablet PO DAILY amlodipine [Norvasc] 5 mg tablet 10 mg PO DAILY trazodone 100 mg tablet 50 mg PO QHS (DME) condom catheter with leg bag See Rx Instructions .Route .MEDSUPPLY Qty: 1 0RF Rx Instructions: As directed daily ferrous sulfate 325 mg (65 mg iron) tablet 325 mg PO BID Qty: 100 2RF Follow-up/Referrals: Pretty Briones MD [Primary Care Provider] -
[2024-06-30 08:51] VITALS: BP 88/53; PULSE 42; RESP 16; TEMP 36.2; O2SAT 90
[2024-06-30 08:58] VITALS: PULSE 48; O2SAT 99
[2024-06-30] MEDS: SODIUM CHLORIDE 0.9% IV 1,000 ML 999 ML IV CONT (09:04)
[2024-06-30 09:06] VITALS: O2SAT 99
[2024-06-30 09:23] VITALS: BP 68/47; PULSE 48; RESP 14; O2SAT 99
[2024-06-30 10:38] VITALS: BP 155/66; PULSE 53; RESP 15; TEMP 36.3; O2SAT 100
--- NOTE | 2024-06-30 10:43 | PCCCNOTE ---
Spoke with Ruth Ann Newby ([phone]) regarding hospice. has initially spoke with Nga Fernandez ([phone]) of [facility] regarding hospice services. Care Coordination is attempting to contact [facility] to make arrangements for them to contact the to complete the hospice paperwork.
--- NOTE | 2024-06-30 11:18 | PCCCNOTE ---
[facility] Information given and she will contact to set up an appointment.
[2024-06-30 11:30] VITALS: BP 145/62; PULSE 58; RESP 18; O2SAT 96
== END 2024-06-30 11:30 ==
PROVIDERS: Emergency Provider Emergency Medicine; PCP Family Medicine
DX: R40.4 Transient alteration of awareness (principal); Z51.5 Encounter for palliative care; G30.9 Alzheimer's disease, unspecified; F02.80 Dementia in other diseases classified elsewhere, unspecified severity, without behavioral disturbance, psychotic disturbance, mood disturbance, and anxiety; I48.91 Unspecified atrial fibrillation; N18.30 Chronic kidney disease, stage 3 unspecified; I12.9 Hypertensive chronic kidney disease with stage 1 through stage 4 chronic kidney disease, or unspecified chronic kidney disease; I25.10 Atherosclerotic heart disease of native coronary artery without angina pectoris; K21.9 Gastro-esophageal reflux disease without esophagitis; N40.0 Benign prostatic hyperplasia without lower urinary tract symptoms; G25.81 Restless legs syndrome; G47.33 Obstructive sleep apnea (adult) (pediatric); Z66 Do not resuscitate; Z87.891 Personal history of nicotine dependence; Z79.01 Long term (current) use of anticoagulants; Z79.899 Other long term (current) drug therapy
CPT/HCPCS: 96360; 96361; 99284; J7030

== ENCOUNTER 2024-07-13 05:01 | Emergency (ER) | payer MEDICARE, SELFPAY ==
--- NOTE | ~2024-07-13 | XR_ITS ---
EXAMINATION: XR chest 2V DATE: 07/13/2024 06:20 INDICATION: Shortness of breath. TECHNIQUE: Frontal and lateral views of the chest were obtained. COMPARISON: Chest 2 views 06/14/2024 FINDINGS: There is mild atelectasis at left lung base. No pleural effusion or pneumothorax. The heart size is normal. There is an electronic implant in left anterior chest wall. There are changes of pos terior fusion procedure in thoracic lumbar spine. There is an old healed fracture of right clavicle. IMPRESSION: 1. Mild atelectasis at left lung base. Reviewed, dictated and finalized at location A.
[2024-07-13 05:07] VITALS: BP 186/76; PULSE 88; RESP 15; TEMP 37.2; O2SAT 95
--- NOTE | 2024-07-13 05:11 | ECG_ITS ---
Test Date: 2024-07-13 05:20:46 Measurements Intervals [place] Rate: 87 P: 7 NC: 244 QRS: -67 QRSD: 115 T: 70 QT: 344 QTc: 415 Interpretive Statements SINUS RHYTHM WITH FIRST DEGREE AV BLOCK WITH OCCASIONAL SUPRAVENTRICULAR PREMATURE COMPLEXES LEFT ANTERIOR FASCICULAR BLOCK [QRS AXIS <= -45, QR IN I, RS IN II] ANTEROSEPTAL MYOCARDIAL INFARCTION , OF INDETERMINATE AGE [40+ ms Q WAVE IN V1-V4] Compared to ECG 06/19/2024 09:44:48 NO SIGNIFICANT CHANGES Electronically Signed On 07-13-2024 15:33:16 CDT by Ana Shepherd M.D.
[2024-07-13 05:20] LABS: Basophils Absolute Auto 0.1 K/mm3 (0.0-0.1); Basophils Percent Auto 0.5 % (0.2-1.2); Eosinophils Absolute Auto 0.1 K/mm3 (0-0.3); Eosinophils Percent Auto 0.4 % (0-4.4); Hematocrit 30.8 % (42.0-52.0); Immature Granulocyte Absolute 0.06 K/mm3 (0.00-0.031); Immature Granulocyte Percent A 0.5 % (0-0.5); Lymphocytes Absolute Auto 0.78 K/mm3 (0.9-3.2); Lymphocytes Percent Auto 6.7 % (18.3-44.2); Mean Corpuscular HGB Conc 32.5 g/dl (32-36); Mean Corpuscular Hemoglobin 32.1 pg (26-34); Mean Corpuscular Volume 98.7 fl (80-100); Mean Platelet Volume 11.6 fl (7.4-10.4); Monocytes Absolute Auto 1.2 K/mm3 (0.1-0.6); Monocytes Percent Auto 10.1 % (2.6-8.5); Neutrophils Absolute Auto 9.5 K/mm3 (1.3-6.7); Neutrophils Percent Auto 81.8 % (45.5-73.1); Platelet Count Result 207 k/mm3 (150-375); Red Blood Count 3.12 M/mm3 (4.6-6.20); Red Cell Distribution Width 13.7 % (11.5-14.5); White Blood Count 11.6 K/mm3 (4.5-10.0)
[2024-07-13] MEDS: ACETAMINOPHEN 500 MG TABLET 1000 MG PO (05:28)
[2024-07-13 05:40] LABS: Alanine Aminotransferase 13 U/L (6-50); Albumin Level 3.8 g/dL (3.5-5.1); Alkaline Phosphatase 71 U/L (38-126); Anion Gap 7 mmol/L (4-12); Aspartate Amino Transferase 24 U/L (17-59); Bilirubin,Total 0.6 mg/dL (0.2-1.3); Blood Urea Nitrogen 25 mg/dL (9-20); Calcium 8.8 mg/dL (8.4-10.2); Carbon Dioxide 28 mmol/L (22-30); Chloride 103 mmol/L (98-107); Estimated CRCL calculation 35 ml/min; Estimated Glomerular Filt Rate 52; Glucose 102 mg/dL (65-110); Potassium 3.9 mmol/L (3.4-5.0); Sodium 138 mmol/L (137-145)
[2024-07-13 05:41] LABS: Lactic Acid Reflex 0.8 mmol/L (0.7-2.0)
[2024-07-13 06:03] LABS: Influenza A QL RT-PCR Negative (Negative); Influenza B QL RT-PCR Negative (Negative); RSV RNA, RT-PCR Negative (Negative); SARS-CoV-2 RNA PCR Negative (Negative)
--- NOTE | 2024-07-13 06:55 | ED.SOB ---
HPI - SOB/Dyspnea General Chief Complaint: Shortness of Breath/Dyspnea Stated Complaint: DIFFICULTY IN BREATHING, COUGH X 3 DAYS Time Seen by Provider: 07/13/24 05:11 Source: patient and family Mode of arrival: ambulatory Limitations: no limitations History of Present Illness HPI Narrative: This is an 89-year-old male, with history of dementia with baseline a and O x1 DNR, brought in by EMS for increased work of breathing. EMS reports over the past 2 days, the patient has had increased cough, worsened this evening. This was productive of yellow-brown sputum without blood. He was reportedly 93% on room air and placed on 3 L [facility]. The patient has no other complaints this time. Related Data Home Medications Medication Instructions Recorded Confirmed atorvastatin 10 mg tablet 10 mg PO HS 03/20/20 06/14/24 apixaban 5 mg tablet (Eliquis) 5 mg PO Q12H 03/02/21 06/16/24 lisinopril 20 mg tablet 40 mg PO DAILY 08/10/21 06/14/24 ropinirole 0.5 mg tablet 3 mg PO DAILY 11/12/23 06/14/24 amlodipine 5 mg tablet (Norvasc) 10 mg PO DAILY 06/14/24 06/14/24 cranberry fruit 450 mg tablet 450 mg PO DAILY 06/14/24 06/14/24 (cranberry) glucosamine 750 vf-pbxyra-imn 1 1 tablet PO DAILY 06/14/24 06/14/24 625 mg-D3 1,000 qckh-Q-izk-Bosw tablet (Zbzedsdzkij-Exrwwzdgdkj-YIK with vit D) melatonin 3 mg tablet 6 mg PO HS 06/14/24 06/14/24 multivitamin with minerals 1 tablet PO DAILY 06/14/24 06/14/24 quetiapine 25 mg tablet 12.5 mg PO HS 06/14/24 06/14/24 trazodone 100 mg tablet 50 mg PO QHS 06/14/24 06/14/24 Allergies Allergy/AdvReac Type Severity Reaction Status Date / Time doxazosin Allergy Unknown Verified 06/30/24 09:23 hydrochlorothiazide Allergy Unknown Verified 06/30/24 09:23 hydrocodone [From [place]] Allergy Unknown Verified 06/30/24 09:23 oxycodone Allergy Hallucinati Verified 06/30/24 09:23 ng spironolactone Allergy Unknown Verified 06/30/24 09:23 Review of Systems Review of Systems: All systems reviewed & are unremarkable except as noted in HPI and below PMFSH Past Medical History Medical History Allergic rhinitis Alzheimer's dementia Anemia Anosmia Atrial fibrillation BPH (benign prostatic hyperplasia) Chronic kidney disease, stage 3 Coronary artery disease Debilitated GERD (gastroesophageal reflux disease) Hypertension MGUS (monoclonal gammopathy of unknown significance) Obstructive sleep apnea Restless legs syndrome Sinus node dysfunction Stasis dermatitis of both legs Surgical History Surgical History S/P carotid endarterectomy Social History Social History Smoking packs per day: 2.5 Smoking cigarettes per day: 50.0 Years smoked: 20 Smoking pack-years: 50.00 Smoking status: Former smoker Tobacco type: cigarettes Second hand tobacco smoke exposure: No Alcohol intake: former Substance use: never Substance use type: does not use Lack of Transportation: No Lack of Food: Never True Current Housing: I Have Housing Concerned About Future Housing: No Difficulty Paying Gas/Electric Bills: No Difficulty Paying for Meds: No Currently Unemployed: No Difficulty w/ Childcare or Family Care: No Living arrangements: with family Occupation/Education: retired Gender identity (if verbalized by the patient): Male Sexual Orientation (if Verbalized by the Patient): Straight or Heterosexual Spiritual care concerns: No Agree to blood products: Yes Exam Narrative: GENERAL: Well-developed, well-nourished, and in no acute distress. HEAD: Normocephalic, atraumatic. EYES: PERRLA and EOMI. CHEST: Coarse transmitted upper airway sounds with mild rales noted in the right lower lobe. Good aeration. No respiratory distress. No wheezes or rhonchi HEART: Regular rate and rhythm. No murmur heard. Normal peripheral pulses. ABDOMEN: Soft, nontender, nondistended, normal active bowel sounds. EXTREMITIES: Normal range of motion. No edema. SKIN: Warm, dry, no rash. NEURO: Alert and oriented x1. No focal deficit. Moving all 4 limbs spontaneously PSYCH: Normal mood and affect. Course Course Emergency Course: 06:56 - Chest x-ray demonstrates left lower lobe atelectasis but is otherwise unremarkable. Patient's white blood cell count is elevated to 11.6 with hemoglobin of 10. Chemistries demonstrate mildly elevated BUN of 25 but is otherwise unremarkable. The patient tested negative for COVID, influenza and RSV. EKG not concerning for ischemia. Considering the patient's DNR status, I had a shared decision-making conversation with the patient's (POA) and his son. They prefer the patient be discharged [facility] jail for oral antibiotics. He becomes quickly disoriented agitated at new facilities. I discussed the findings and recommendations with the patient's spouse and his son. Discussed return and emergency precautions including signs/symptoms of respiratory distress. The patient's past and son voiced understanding and agreement with the plan. All questions answered to their satisfaction. Vital Signs Vital signs: Vital Signs Temperature 99 F 07/13/24 05:07 Pulse Rate 88 07/13/24 05:07 Respiratory Rate 15 07/13/24 05:07 Blood Pressure 186/76 H 07/13/24 05:07 Pulse Oximetry 95 07/13/24 05:07 Oxygen Delivery Room Air 07/13/24 05:07 Temperature 99 F 07/13/24 05:07 Pulse Rate 88 07/13/24 05:07 Respiratory Rate 15 07/13/24 05:07 Blood Pressure 186/76 H 07/13/24 05:07 Pulse Oximetry 95 07/13/24 05:07 Oxygen Delivery Room Air 07/13/24 05:07 MDM - SOB/Dyspnea MDM Narrative Medical decision making narrative: Plan: 1 labs, imaging, EKG, reassess Differential Diagnosis Differential diagnosis: Likely community acquired pneumonia and other (COVID, influenza, RSV, metabolic abnormality, other) Lab Data 07/13/24 05:14 07/13/24 05:14 Labs: Lab Results 07/13/24 07/13/24 Range/Units 05:14 05:23 WBC 11.6 H (4.5-10.0) K/mm3 RBC 3.12 L (4.6-6.20) M/mm3 Hgb 10.0 L (14.0-18.0) g/dL Hct 30.8 L (42.0-52.0) % MCV 98.7 (80-100) fl MCH 32.1 (26-34) pg MCHC 32.5 (32-36) g/dl RDW 13.7 (11.5-14.5) % Plt Count 207 (150-375) k/mm3 MPV 11.6 H (7.4-10.4) fl Immature Gran % (Auto) 0.5 (0-0.5) % Neut % (Auto) 81.8 H (45.5-73.1) % Lymph % (Auto) 6.7 L (18.3-44.2) % [place] % (Auto) 10.1 H (2.6-8.5) % Eos % (Auto) 0.4 (0-4.4) % Baso % (Auto) 0.5 (0.2-1.2) % Lymph # (Auto) 0.78 L (0.9-3.2) K/mm3 [place] # (Auto) 1.2 H (0.1-0.6) K/mm3 Eos # (Auto) 0.1 (0-0.3) K/mm3 Baso # (Auto) 0.1 (0.0-0.1) K/mm3 Abs Immat Gran (auto) 0.06 H (0.00-0.031) K/mm3 Absolute Neuts (auto) 9.5 H (1.3-6.7) K/mm3 Absolute Nucleated RBC 0.000 (0.0-0.012) K/mm3 Nucleated RBC % 0.0 (0.0-0.2) % Sodium 138 (137-145) mmol/L Potassium 3.9 (3.4-5.0) mmol/L Chloride 103 (98-107) mmol/L Carbon Dioxide 28 (22-30) mmol/L Anion Gap 7 (4-12) mmol/L BUN 25 H (9-20) mg/dL Creatinine 1.30 (0.7-1.3) mg/dL Estim Creat Clear Calc 35 ml/min Estimated GFR 52 L (59 - ) Glucose 102 (65-110) mg/dL Lactic Acid 0.8 (0.7-2.0) mmol/L Calcium 8.8 (8.4-10.2) mg/dL Total Bilirubin 0.6 (0.2-1.3) mg/dL AST 24 (17-59) U/L ALT 13 (6-50) U/L Alkaline Phosphatase 71 (38-126) U/L Total Protein 7.0 (6.3-8.2) g/dL Albumin 3.8 (3.5-5.1) g/dL Influenza A (RT-PCR) Negative (Negative) Influenza B (RT-PCR) Negative (Negative) RSV (RT-PCR) Negative (Negative) SARS-CoV-2 RNA (RT-PCR) Negative (Negative) ECG Data EKG #1: Attestation: I personally reviewed and interpreted this ECG as follows: ECG completion date: 07/13/24 ECG completion time: 05:20 Prior ECG tracings: available for review Interpretation: Sinus rhythm, rate 87, left axis deviation, no ST segment elevations or T-wave inversions concerning for ischemia, first-degree AV block with otherwise normal intervals with QTC of 415. Discharge Plan Discharge Clinical Impression: CAP (community acquired pneumonia) Qualifiers: Laterality: right Lung location: lower lobe of lung Qualified Code(s): J18.9 - Pneumonia, unspecified organism Cough Qualifiers: Cough type: acute Qualified Code(s): R05.1 - Acute cough Patient Disposition: [place] Intermediate/Asst Living Condition: Stable Instructions: Antibiotic Form, Community Acquired Pneumonia (ED) Additional Instructions: You were seen in the emergency department. Your exam appears consistent with pneumonia, though a chest x-ray did not demonstrate an obvious infiltrate. I recommend oral antibiotics and follow-up with your primary care doctor. If you develop chest pain, worsening shortness of breath, or if you have other emergent concerns for life, limb, or eyesight, return to the emergency department. Patient Language: Korean Prescriptions: New cefpodoxime 200 mg tablet 200 mg PO Q12H 7 Days Qty: 14 0RF Rx Instructions: must administer with a meal/food doxycycline hyclate 100 mg tablet 100 mg PO Q12H 7 Days Qty: 14 0RF benzonatate 100 mg capsule 100 mg PO BID PRN (Reason: cough) Qty: 6 0RF No Action Eliquis 5 mg tablet 5 mg PO Q12H lisinopril 20 mg tablet 40 mg PO DAILY finasteride 5 mg tablet 5 mg PO DAILY Qty: 90 1RF atorvastatin 10 mg tablet 10 mg PO HS ropinirole 0.5 mg tablet 3 mg PO DAILY quetiapine 25 mg Tablet 12.5 mg PO HS melatonin 3 mg Tablet 6 mg PO HS multivitamin with minerals Tablet 1 tablet PO DAILY cranberry 450 mg Tablet 450 mg PO DAILY Vfmtbgpq-Nndoxk-OVX with vit D 750-625-1,000 mg-mg-unit Tablet 1 tablet PO DAILY amlodipine [Norvasc] 5 mg tablet 10 mg PO DAILY trazodone 100 mg tablet 50 mg PO QHS (DME) condom catheter with leg bag See Rx Instructions .Route .MEDSUPPLY Qty: 1 0RF Rx Instructions: As directed daily ferrous sulfate 325 mg (65 mg iron) tablet 325 mg PO BID Qty: 100 2RF Follow-up/Referrals: Pretty Briones MD [Primary Care Provider] - 3 Days Stand Alone Forms: [facility] Discharge Time of Disposition: 07:16
[2024-07-13] MEDS: CEFEPIME 2 GM/NS 50 ML 2 GM/50 ML BAG IVPB (07:09)
[2024-07-13 07:18] VITALS: BP 142/69; PULSE 77; RESP 18; O2SAT 93
[2024-07-13 08:37] VITALS: BP 142/82; PULSE 64; RESP 17; TEMP 36.8; O2SAT 95
== END 2024-07-13 08:40 ==
PROVIDERS: Emergency Provider Preventive Medicine Aerospace Medicine; PCP Family Medicine
DX: J18.9 Pneumonia, unspecified organism (principal); R05.1 Acute cough; Z20.822 Contact with and (suspected) exposure to COVID-19; G30.9 Alzheimer's disease, unspecified; F02.80 Dementia in other diseases classified elsewhere, unspecified severity, without behavioral disturbance, psychotic disturbance, mood disturbance, and anxiety; I87.2 Venous insufficiency (chronic) (peripheral); I48.91 Unspecified atrial fibrillation; I12.9 Hypertensive chronic kidney disease with stage 1 through stage 4 chronic kidney disease, or unspecified chronic kidney disease; N18.30 Chronic kidney disease, stage 3 unspecified; I25.10 Atherosclerotic heart disease of native coronary artery without angina pectoris; N40.0 Benign prostatic hyperplasia without lower urinary tract symptoms; K21.9 Gastro-esophageal reflux disease without esophagitis; G47.33 Obstructive sleep apnea (adult) (pediatric); G25.81 Restless legs syndrome; Z66 Do not resuscitate; Z87.891 Personal history of nicotine dependence; Z79.899 Other long term (current) drug therapy; Z79.01 Long term (current) use of anticoagulants; I44.0 Atrioventricular block, first degree; I49.1 Atrial premature depolarization; R94.31 Abnormal electrocardiogram [ECG] [EKG]; I44.4 Left anterior fascicular block
CPT/HCPCS: 36415; 71046; 80053; 83605; 85025; 87637; 93005; 96365; 99284; A9270; J0692

== ENCOUNTER 2024-07-21 11:20 | Emergency (ER) | payer MEDICARE, SELFPAY ==
--- NOTE | ~2024-07-21 | CT_ITS ---
EXAMINATION: CT cervical spine wo con DATE: 07/21/2024 13:00 INDICATION: Fall TECHNIQUE: Computed tomography (CT) of the cervical spine was performed without intravenous contrast. Automated exposure control and iterative reconstruction technique were employed. The dose-length pro duct was 535.19 mGy-cm. COMPARISON: None FINDINGS: Severe atlantoaxial osteoarthritis. Prominent erosions at the base of the dens. 10 degrees cervicotho racic dextrocurvature. Reversal of the normal lordosis in the lower cervical spine severe disc height loss with degenerative endplate changes at C5-C6 through T1-T2. 2-3 mm anterolisthesis C4 on C5. Dano tebral body heights are normal. No acute fracture. There is additional moderate disc height loss at C 4-C5 and mild disc height loss at C3-C4. Small posterior disc osteophyte complexes resulting in minim al central canal stenosis at C5-C6 through T1-T2. There is multilevel severe cervical facet and uncov ertebral osteoarthritis. There is multilevel moderate neural foraminal stenosis bilaterally in the ce rvical and upper thoracic spine. Bilateral relatively low density thyroid nodules the largest on the right measuring 3 cm in maximal diameter. Atherosclerotic calcifications at the bilateral carotid bul bs. Visualized upper lungs are clear. Visualized cervical soft tissues are otherwise unremarkable. IMPRESSION: 1. Severe cervical and upper thoracic spondylosis. No acute osseous abnormality. 2. Multinodular goiter with thyroid nodules measuring up to 3 cm in the right thyroid lobe. Could con prior authorization nurse follow-up thyroid ultrasound for risk stratification as clinically indicated. Reviewed, dictated and finalized at location A. IMPRESSION: 1. Severe cervical and upper thoracic spondylosis. No acute osseous abnormality . 2. Multinodular goiter with thyroid nodules measuring up to 3 cm in the right t hyroid lobe. Could consider follow-up thyroid ultrasound for risk stratificatio n as clinically indicated.
--- NOTE | ~2024-07-21 | CT_ITS ---
EXAMINATION: CT brain wo con DATE: 07/21/2024 12:59 INDICATION: Syncopal episode with fall TECHNIQUE: Computed tomography (CT) of the head was performed without intravenous contrast. Sagittal and coronal reconstructions were performed. The mA was adjusted according to patient size. Iterative reconstruction technique was employed. The dose-length product was 605.33 mGy-cm. COMPARISON: head CT dated 06/19/2024 FINDINGS: No fracture. No acute intracranial hemorrhage, acute infarction or abnormal extra axial fluid collect ion. There is moderate scattered white matter hypoattenuation consistent with chronic small vessel is chemic disease. Symmetric prominence of the sulci and ventricles consistent with moderate age-appropr iate diffuse cerebral volume loss. Ventricles are normal and symmetric. No mass/mass effect. Changes of bilateral intraocular lens replacement. The orbits and mastoid air cells are normal. Mild mucosal thickening the bilateral ethmoid sinuses more prominent mucosal thickening with dependently layering fluid/mucus in the right maxillary sinus which could be seen with acute sinusitis. IMPRESSION: 1. No acute intracranial process. 2. Age-related changes including moderate diffuse volume loss and moderate scattered white matter hyp oattenuation consistent with chronic small vessel ischemic disease. 3. Sinus disease with dependent mucus/fluid in the right maxillary sinus suggestive of acute sinusiti s. Reviewed, dictated and finalized at location A. IMPRESSION: 1. No acute intracranial process. 2. Age-related changes including moderate diffuse volume loss and moderate scat tered white matter hypoattenuation consistent with chronic small vessel ischemi c disease. 3. Sinus disease with dependent mucus/fluid in the right maxillary sinus sugges tive of acute sinusitis.
[2024-07-21 11:28] VITALS: BP 141/78; PULSE 62; RESP 16; TEMP 36.4; O2SAT 96
--- NOTE | 2024-07-21 12:40 | ED.FALL ---
HPI - Fall General Chief Complaint: Fall Stated Complaint: fall Time Seen by Provider: 07/21/24 11:40 Source: patient History of Present Illness HPI Narrative: 89 YEARS OLD WHITE MALE CAME FROM LONG-TERM BY AMBULANCE FOR GROUND LEVEL FALL. PATIENT REMAINS ABNORMAL MENTATION IS AWAKE AND ORIENTED TIME 1, ABRASION TO LEFT TOP OF THE SCALP, PATIENT DENYING ANY PAIN. Related Data Home Medications Medication Instructions Recorded Confirmed atorvastatin 10 mg tablet 10 mg PO HS 03/20/20 06/14/24 apixaban 5 mg tablet (Eliquis) 5 mg PO Q12H 03/02/21 06/16/24 lisinopril 20 mg tablet 40 mg PO DAILY 08/10/21 06/14/24 ropinirole 0.5 mg tablet 3 mg PO DAILY 11/12/23 06/14/24 amlodipine 5 mg tablet (Norvasc) 10 mg PO DAILY 06/14/24 06/14/24 cranberry fruit 450 mg tablet 450 mg PO DAILY 06/14/24 06/14/24 (cranberry) glucosamine 750 qj-vfavuz-noh 1 1 tablet PO DAILY 06/14/24 06/14/24 625 mg-D3 1,000 twll-E-nny-Bosw tablet (Ybzmsakoqgw-Ftcbwbnockl-VLT with vit D) melatonin 3 mg tablet 6 mg PO HS 06/14/24 06/14/24 multivitamin with minerals 1 tablet PO DAILY 06/14/24 06/14/24 quetiapine 25 mg tablet 12.5 mg PO HS 06/14/24 06/14/24 trazodone 100 mg tablet 50 mg PO QHS 06/14/24 06/14/24 Allergies Allergy/AdvReac Type Severity Reaction Status Date / Time doxazosin Allergy Unknown Verified 07/21/24 11:33 hydrochlorothiazide Allergy Unknown Verified 07/21/24 11:33 hydrocodone [From [place]] Allergy Unknown Verified 07/21/24 11:33 oxycodone Allergy Hallucinati Verified 07/21/24 11:33 ng spironolactone Allergy Unknown Verified 07/21/24 11:33 Review of Systems Review of Systems: All systems reviewed & are unremarkable except as noted in HPI and below PMFSH Past Medical History Medical History Allergic rhinitis Alzheimer's dementia Anemia Anosmia Atrial fibrillation BPH (benign prostatic hyperplasia) Chronic kidney disease, stage 3 Coronary artery disease Debilitated GERD (gastroesophageal reflux disease) Hypertension MGUS (monoclonal gammopathy of unknown significance) Obstructive sleep apnea Restless legs syndrome Sinus node dysfunction Stasis dermatitis of both legs Surgical History Surgical History S/P carotid endarterectomy Social History Social History Smoking packs per day: 2.5 Smoking cigarettes per day: 50.0 Years smoked: 20 Smoking pack-years: 50.00 Smoking status: Former smoker Tobacco type: cigarettes Second hand tobacco smoke exposure: No Alcohol intake: former Substance use: never Substance use type: does not use Lack of Transportation: No Lack of Food: Never True Current Housing: I Have Housing Concerned About Future Housing: No Difficulty Paying Gas/Electric Bills: No Difficulty Paying for Meds: No Currently Unemployed: No Difficulty w/ Childcare or Family Care: No Living arrangements: with family Occupation/Education: retired Gender identity (if verbalized by the patient): Male Sexual Orientation (if Verbalized by the Patient): Straight or Heterosexual Spiritual care concerns: No Agree to blood products: Yes Exam Narrative: GENERAL APPEARANCE: WELL-DEVELOPED, WELL-NOURISHED SKIN: NORMAL COLOR HEAD: NORMOCEPHALIC, ABRASION LEFT SIDE OF THE TOP OF THE HEAD EYES: CLEAR CONJUNCTIVA NECK: SUPPLE, NONTENDER CHEST AND RESPIRATORY: AIRWAY PATENT, NO RESPIRATORY DISTRESS, NO ACCESSORY MUSCLE USE HEART: REGULAR RATE/RHYTHM ABDOMEN: SOFT, NONTENDER, NO ORGANOMEGALY, QUIET BOWEL SOUNDS MUSCULOSKELETAL: NORMAL RANGE OF MOTION, NONTENDER BACK NEUROLOGIC: ALERT AND ORIENTED TS NAME ONLY Course Vital Signs Vital signs: Vital Signs Temperature 36.4 C 07/21/24 11:28 Pulse Rate 62 07/21/24 11:28 Respiratory Rate 16 07/21/24 11:28 Blood Pressure 141/78 H 07/21/24 11:28 Pulse Oximetry 96 07/21/24 11:28 Oxygen Delivery Room Air 07/21/24 11:28 Temperature 36.4 C 07/21/24 11:28 Pulse Rate 62 07/21/24 11:28 Respiratory Rate 16 07/21/24 11:28 Blood Pressure 141/78 H 07/21/24 11:28 Pulse Oximetry 96 07/21/24 11:28 Oxygen Delivery Room Air 07/21/24 11:28 MDM - Fall MDM Narrative Medical decision making narrative: GROUND LEVEL FALL, NO COMPLAINTS CT HEAD AND CERVICAL SPINE SHOWED NO ACUTE ABNORMALITIES Differential Diagnosis Differential diagnosis: Likely other ( CLOSED HEAD INJURY, CONTUSION) Imaging Data Radiologist's impression: Impressions Head CT 07/21/24 13:09 IMPRESSION: 1. No acute intracranial process. 2. Age-related changes including moderate diffuse volume loss and moderate scattered white matter hypoattenuation consistent with chronic small vessel ischemic disease. 3. Sinus disease with dependent mucus/fluid in the right maxillary sinus suggestive of acute sinusitis. Cervical Spine CT 07/21/24 13:17 IMPRESSION: 1. Severe cervical and upper thoracic spondylosis. No acute osseous abnormality. 2. Multinodular goiter with thyroid nodules measuring up to 3 cm in the right thyroid lobe. Could consider follow-up thyroid ultrasound for risk stratification as clinically indicated. Critical Care Time Critical Care Time Critical Care Time: No Discharge Plan Discharge Clinical Impression: CHI (closed head injury), Fall Patient Disposition: [facility]Asst Living Condition: Stable Instructions: Head Injury (ED) Additional Instructions: RETURN IF SYMPTOMS ARE WORSENING , CALL YOUR FAMILY PHYSICIAN FOR APPOINTMENT, TAKE TYLENOL NEEDED FOR ACHES AND PAIN, CONTINUE HOME MEDICATIONS. Prescriptions: No Action Eliquis 5 mg tablet 5 mg PO Q12H lisinopril 20 mg tablet 40 mg PO DAILY finasteride 5 mg tablet 5 mg PO DAILY Qty: 90 1RF atorvastatin 10 mg tablet 10 mg PO HS cefpodoxime 200 mg tablet 200 mg PO Q12H 7 Days Qty: 14 0RF Rx Instructions: must administer with a meal/food doxycycline hyclate 100 mg tablet 100 mg PO Q12H 7 Days Qty: 14 0RF benzonatate 100 mg capsule 100 mg PO BID PRN (Reason: cough) Qty: 6 0RF ropinirole 0.5 mg tablet 3 mg PO DAILY quetiapine 25 mg Tablet 12.5 mg PO HS melatonin 3 mg Tablet 6 mg PO HS multivitamin with minerals Tablet 1 tablet PO DAILY cranberry 450 mg Tablet 450 mg PO DAILY Vfgivsin-Ynnsfj-WIQ with vit D 750-625-1,000 mg-mg-unit Tablet 1 tablet PO DAILY amlodipine [Norvasc] 5 mg tablet 10 mg PO DAILY trazodone 100 mg tablet 50 mg PO QHS (DME) condom catheter with leg bag See Rx Instructions .Route .MEDSUPPLY Qty: 1 0RF Rx Instructions: As directed daily ferrous sulfate 325 mg (65 mg iron) tablet 325 mg PO BID Qty: 100 2RF Follow-up/Referrals: Pretty Briones MD [Primary Care Provider] -
[2024-07-21 13:30] VITALS: BP 142/80; PULSE 74; RESP 18; TEMP 36.6; O2SAT 97
[2024-07-21 15:24] VITALS: BP 144/88; PULSE 68; RESP 18; TEMP 36.6; O2SAT 98
--- NOTE | 2024-07-21 16:28 | PC.NURSE ---
Pt incontinent of urine. Joaquina care given
--- NOTE | 2024-07-21 17:50 | PC.NURSE ---
Pt arrived to ER, states she will transport pt back to [facility]. Assisted pt to family car without difficulty
== END 2024-07-21 20:13 ==
PROVIDERS: Emergency Provider Emergency Medicine; PCP Family Medicine
DX: S00.01XA Abrasion of scalp, initial encounter (principal); G30.9 Alzheimer's disease, unspecified; F02.80 Dementia in other diseases classified elsewhere, unspecified severity, without behavioral disturbance, psychotic disturbance, mood disturbance, and anxiety; I48.91 Unspecified atrial fibrillation; I25.10 Atherosclerotic heart disease of native coronary artery without angina pectoris; I12.9 Hypertensive chronic kidney disease with stage 1 through stage 4 chronic kidney disease, or unspecified chronic kidney disease; N18.30 Chronic kidney disease, stage 3 unspecified; Z87.891 Personal history of nicotine dependence; W18.30XA Fall on same level, unspecified, initial encounter
CPT/HCPCS: 70450; 72125; 99284

== ENCOUNTER 2024-09-13 03:22 | Emergency (ER) | payer MEDICARE, SELFPAY ==
--- NOTE | ~2024-09-13 | XR_ITS ---
EXAMINATION: XR elbow LT min 3V DATE: 09/13/2024 04:32 INDICATION: Left elbow pain. TECHNIQUE: 4 views of left elbow were obtained. COMPARISON: None. FINDINGS: Bone alignment is normal. No fracture. There is mild elbow joint osteoarthritis. No elbow j oint effusion. IMPRESSION: 1. Mild elbow joint osteoarthritis. Reviewed, dictated and finalized at location A. WARE ENGINEER KERNEL
--- NOTE | ~2024-09-13 | CT_ITS ---
EXAMINATION: CT brain wo con DATE: 09/13/2024 04:01 INDICATION: Head injury. Fall. TECHNIQUE: Computed tomography (CT) of the head was performed without intravenous contrast. The mA wa s adjusted according to patient size. Iterative reconstruction technique was employed. The dose-lengt h product was 1210.67 mGy-cm. COMPARISON: Head CT 07/21/2024, brain MRI 11/13/2023 FINDINGS: There is no intracranial hemorrhage, acute infarction, or abnormal intracranial mass lesion . There is an old lacunar infarct in the right caudate nucleus. There are scattered areas of low atte nuation in the cerebral white matter, which is within normal limits for the patient's age. The ventr icles are normal in size. There is mild mucosal thickening in the paranasal sinuses. The mastoid air cells are normal. IMPRESSION: 1. 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 Reviewed, dictated and finalized at location A. COORDINATOR
--- NOTE | ~2024-09-13 | XR_ITS ---
EXAMINATION: XR shoulder RT min 2V DATE: 09/13/2024 04:32 INDICATION: Right shoulder pain. TECHNIQUE: 3 views of right shoulder were obtained. COMPARISON: None. 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 The distal fractur e fragment demonstrates one shaft width inferior displacement. There is moderate osteoarthritis of gl enohumeral joint and mild osteoarthritis of acromioclavicular joint. A calcified right lung nodule is consistent with old granulomatous disease. There are changes of posterior fusion procedure in thorac olumbar spine. IMPRESSION: 1. Polyarticular osteoarthritis. Reviewed, dictated and finalized at location A. VAL CLERK
--- NOTE | ~2024-09-13 | CT_ITS ---
EXAMINATION: CT cervical spine wo con DATE: 09/13/2024 04:01 INDICATION: Neck injury. Fall. TECHNIQUE: Computed tomography (CT) of the cervical spine was performed without intravenous contrast. Automated exposure control and iterative reconstruction technique were employed. The dose-length pro duct was 326.09 mGy-cm. COMPARISON: CT cervical spine 07/21/2024 FINDINGS: There are nodules in the thyroid measuring up to 2.7 cm . There is kyphosis of cervical spi ne. There is 2 mm anterolisthesis of C4 on C5. There is mild chronic anterior wedging of C6-T2 verteb ral bodies. There is mildly decreased disc height at C3-C4, moderately decreased disc height at C4-C5 , severely decreased disc height from C5-C6 through T2-T3. There is a benign bone island in right thi rd rib. The following disc levels are specifically discussed: C2-C3: There is mild bilateral uncovertebral joint osteoarthritis. There is severe bilateral mild teto ateral facet joint osteoarthritis. There is mild bilateral neural foraminal stenosis. There is no oly tral canal stenosis. C3-C4: There is mild right and moderate left uncovertebral joint osteoarthritis. There is severe bila teral facet joint osteoarthritis. There is mild bilateral neural foraminal stenosis. There is mild ce ntral canal stenosis. C4-C5: There is severe right and mild left uncovertebral joint osteoarthritis. There is severe bilate ral facet joint osteoarthritis. There is moderate right and mild left neural foraminal stenosis. Ther e is no central canal stenosis. C5-C6: There is severe bilateral uncovertebral joint osteoarthritis. There is severe bilateral facet joint osteoarthritis. There is mild bilateral neural foraminal stenosis. There is mild central canal stenosis. C6-C7: There is severe bilateral uncovertebral joint osteoarthritis. There is severe bilateral facet joint osteoarthritis. There is mild bilateral neural foraminal stenosis. There is mild central canal stenosis. C7-T1: There is severe bilateral uncovertebral joint osteoarthritis. There is severe bilateral facet joint osteoarthritis. There is mild bilateral neural foraminal stenosis. There is mild central canal stenosis. IMPRESSION: 1. No fracture. 2. Severe cervical spondylosis. 3. Multinodular goiter. Further evaluation is likely not needed given the patient's age. Reviewed, dictated and finalized at location A. RITY CONTROL ASSESSOR IMPRESSION: 1. No fracture. 2. Severe cervical spondylosis. 3. Multinodular goiter. Further evaluation is likely not needed given the patie nt's age.
--- NOTE | ~2024-09-13 | XR_ITS ---
EXAMINATION: XR shoulder LT min 2V DATE: 09/13/2024 04:32 INDICATION: Left shoulder pain. TECHNIQUE: 3 views of left shoulder were obtained. COMPARISON: None. FINDINGS: Alignment is normal. No fracture. There is severe osteoarthritis of glenohumeral joint and mild osteoarthritis of acromioclavicular joint. An electronic implant overlies left chest. IMPRESSION: 1. Severe osteoarthritis of glenohumeral joint. Reviewed, dictated and finalized at location A. BUILDER
--- NOTE | ~2024-09-13 | XR_ITS ---
EXAMINATION: XR elbow RT min 3V DATE: 09/13/2024 04:32 INDICATION: Right elbow pain. TECHNIQUE: 4 views of right elbow were obtained. COMPARISON: None. FINDINGS: Alignment is normal. No fracture. There is mild elbow joint osteoarthritis. No elbow joint effusion. IMPRESSION: 1. Mild elbow joint osteoarthritis. Reviewed, dictated and finalized at location A. HAULER
[2024-09-13 03:23] VITALS: BP 185/80; PULSE 89; RESP 16; TEMP 37.6; O2SAT 98
--- NOTE | 2024-09-13 03:45 | PC.NURSE ---
No obvious signs of injury
--- NOTE | 2024-09-13 03:46 | ED.GENADULT ---
HPI - General Adult General Chief complaint: Fall Stated complaint: fall Time Seen by Provider: 09/13/24 03:27 History of Present Illness HPI narrative: Patient is a 89-year-old gentleman who presents emergency department with chief complaint of fall the patient was unwitnessed he has history of Alzheimer's is currently undergoing hospice treatment the patient currently has no complaints but was found laying on the floor the staff was concerned that he may have got his arm caught in the rail whenever he fell Related Data Home Medications ?Medication ?Instructions ?Recorded ?Confirmed ?Last Taken ?Type atorvastatin 10 mg tablet 10 mg PO HS 03/20/20 07/29/24 11/11/23 History 0800 apixaban 5 mg tablet (Eliquis) 5 mg PO Q12H 03/02/21 07/29/24 11/11/23 08:00 History 5 mg lisinopril 20 mg tablet 40 mg PO DAILY 08/10/21 07/29/24 11/11/23 History ropinirole 0.5 mg tablet 3 mg PO DAILY 11/12/23 07/29/24 Unknown History amlodipine 5 mg tablet (Norvasc) 10 mg PO DAILY 06/14/24 07/29/24 Unknown History cranberry fruit 450 mg tablet 450 mg PO DAILY 06/14/24 07/29/24 Unknown History (cranberry) glucosamine 750 xd-cqxrsf-jie 1 1 tablet PO DAILY 06/14/24 07/29/24 Unknown History 625 mg-D3 1,000 gooa-T-wcl-Bosw tablet (Wzmoegipunz-Djlhqoctfbs-ZGG with vit D) melatonin 3 mg tablet 6 mg PO HS 06/14/24 06/14/24 Unknown History multivitamin with minerals 1 tablet PO DAILY 06/14/24 07/29/24 Unknown History quetiapine 25 mg tablet 12.5 mg PO HS 06/14/24 06/14/24 Unknown History trazodone 100 mg tablet 50 mg PO QHS 06/14/24 07/29/24 Unknown History tamsulosin 0.4 mg capsule 0.4 mg PO DAILY 07/25/24 07/29/24 Unknown History Allergies Allergy/AdvReac Type Severity Reaction Status Date / Time doxazosin Allergy Unknown Verified 07/25/24 07:10 hydrochlorothiazide Allergy Unknown Verified 07/25/24 07:10 hydrocodone (From [place]) Allergy Unknown Verified 07/25/24 07:10 oxycodone Allergy Hallucinati Verified 07/25/24 07:10 ng spironolactone Allergy Unknown Verified 07/25/24 07:10 Review of Systems Review of Systems: A 10 system review of systems was completed on the patient and is negative except for what is stated in the HPI. Nursing and ancillary documentation was reviewed. [facility] Past Medical History Medical History History of fractured kneecap Anosmia Debilitated GERD (gastroesophageal reflux disease) Hypertension Stasis dermatitis of both legs Anemia Obstructive sleep apnea Atrial fibrillation Chronic kidney disease, stage 3 Sinus node dysfunction Coronary artery disease Allergic rhinitis BPH (benign prostatic hyperplasia) MGUS (monoclonal gammopathy of unknown significance) Alzheimer's dementia Restless legs syndrome Surgical History Surgical History History of sinus surgery History of foot surgery History of knee replacement History of back surgery S/P carotid endarterectomy Family History Family History Father Hypertension Social History Social History Smoking packs per day: 2.5 Smoking cigarettes per day: 50.0 Years smoked: 20 Smoking pack-years: 50.00 Smoking status: Former smoker Tobacco type: cigarettes Second hand tobacco smoke exposure: No Alcohol intake: former Substance use: never Substance use type: does not use Do You Feel Safe in your Home?: Yes Lack of Transportation: No Lack of Food: Never True Current Housing: I Have Housing Concerned About Future Housing: No Difficulty Paying Gas/Electric Bills: No Difficulty Paying for Meds: No Currently Unemployed: No Difficulty w/ Childcare or Family Care: No Living arrangements: with family Occupation/Education: retired Gender identity (if verbalized by the patient): Male Sexual Orientation (if Verbalized by the Patient): Straight or Heterosexual Spiritual care concerns: No Agree to blood products: Yes Exam Narrative: GENERAL: Well-appearing, well-nourished, and in no acute distress. HEAD: Normocephalic, atraumatic. EYES: PERRLA and EOMI. ENT: Nares clear, no rhinorrhea or epistaxis. Mucous membranes moist. NECK: Supple. CHEST: Clear to auscultation. No respiratory distress. HEART: Regular rate and rhythm. No murmur heard. Normal peripheral pulses. ABDOMEN: Soft, nontender, nondistended, normal active bowel sounds. EXTREMITIES: Normal range of motion. No edema. SKIN: Warm, dry, no rash. NEURO: No focal deficits. Alert and oriented x1. PSYCH: Normal mood and affect. Course Vital Signs Vital signs: Vital Signs Temperature 37.6 C 09/13/24 03:23 Pulse Rate 89 09/13/24 03:23 Respiratory Rate 16 09/13/24 03:23 Blood Pressure 185/80 H 09/13/24 03:23 Pulse Oximetry 98 09/13/24 03:23 Oxygen Delivery Room Air 09/13/24 03:23 Temperature 37.6 C 09/13/24 03:23 Pulse Rate 89 09/13/24 03:23 Respiratory Rate 16 09/13/24 03:23 Blood Pressure 185/80 H 09/13/24 03:23 Pulse Oximetry 98 09/13/24 03:23 Oxygen Delivery Room Air 09/13/24 03:23 Medical Decision Making MDM Narrative Medical decision making narrative: Diagnosis includes head injury, cervical spine fracture, upper extremity fracture Plain film x-rays of the shoulders and elbow showed no evidence of fracture. CT head CT C-spine showed no acute abnormality The patient be discharged back to the facility Vital Signs Vital Signs: Vital Signs Temperature 37.6 C 09/13/24 03:23 Pulse Rate 89 09/13/24 03:23 Respiratory Rate 16 09/13/24 03:23 Blood Pressure 185/80 H 09/13/24 03:23 Pulse Oximetry 98 09/13/24 03:23 Oxygen Delivery Room Air 09/13/24 03:23 Temperature 37.6 C 09/13/24 03:23 Pulse Rate 89 09/13/24 03:23 Respiratory Rate 16 09/13/24 03:23 Blood Pressure 185/80 H 09/13/24 03:23 Pulse Oximetry 98 09/13/24 03:23 Oxygen Delivery Room Air 09/13/24 03:23 Discharge Plan Discharge Clinical Impression: Fall from bed, Head injury Patient Disposition: NH Group Home/Asst Living Condition: Stable Instructions: Antibiotic Form, Fall Prevention for Older Adults (ED), Head Injury (ED) Patient Language: Latvian Prescriptions: No Action Eliquis 5 mg tablet 5 mg PO Q12H lisinopril 20 mg tablet 40 mg PO DAILY tamsulosin 0.4 mg capsule 0.4 mg PO DAILY finasteride 5 mg tablet 5 mg PO DAILY Qty: 90 1RF atorvastatin 10 mg tablet 10 mg PO HS cefpodoxime 200 mg tablet 200 mg PO Q12H 7 Days Qty: 14 0RF Rx Instructions: must administer with a meal/food doxycycline hyclate 100 mg tablet 100 mg PO Q12H 7 Days Qty: 14 0RF benzonatate 100 mg capsule 100 mg PO BID PRN (Reason: cough) Qty: 6 0RF ropinirole 0.5 mg tablet 3 mg PO DAILY quetiapine 25 mg Tablet 12.5 mg PO HS melatonin 3 mg Tablet 6 mg PO HS multivitamin with minerals Tablet 1 tablet PO DAILY cranberry 450 mg Tablet 450 mg PO DAILY Ytpwwakz-Mfiwgj-SZN with vit D 750-625-1,000 mg-mg-unit Tablet 1 tablet PO DAILY amlodipine [Norvasc] 5 mg tablet 10 mg PO DAILY trazodone 100 mg tablet 50 mg PO QHS (DME) condom catheter with leg bag See Rx Instructions .Route .MEDSUPPLY Qty: 1 0RF Rx Instructions: As directed daily ferrous sulfate 325 mg (65 mg iron) tablet 325 mg PO BID Qty: 100 2RF Follow-up/Referrals: Pretty Briones MD [Primary Care Provider] - Time of Disposition: 04:53
[2024-09-13 06:36] VITALS: BP 161/67; PULSE 84; RESP 16; O2SAT 94
[2024-09-13] MEDS: ONDANSETRON HCL ODT 4 MG TABLET PO (07:48)
[2024-09-13] MEDS: MORPHINE SULFATE INJ (*CRX) 10 MG/ML AMP 4 MG IM (07:49)
== END 2024-09-13 07:59 ==
PROVIDERS: Emergency Provider Emergency Medicine; PCP Family Medicine
DX: S09.90XA Unspecified injury of head, initial encounter (principal); K21.9 Gastro-esophageal reflux disease without esophagitis; I12.9 Hypertensive chronic kidney disease with stage 1 through stage 4 chronic kidney disease, or unspecified chronic kidney disease; N18.30 Chronic kidney disease, stage 3 unspecified; D64.9 Anemia, unspecified; G47.30 Sleep apnea, unspecified; I48.91 Unspecified atrial fibrillation; I25.10 Atherosclerotic heart disease of native coronary artery without angina pectoris; G30.9 Alzheimer's disease, unspecified; F02.80 Dementia in other diseases classified elsewhere, unspecified severity, without behavioral disturbance, psychotic disturbance, mood disturbance, and anxiety; G25.81 Restless legs syndrome; W19.XXXA Unspecified fall, initial encounter
CPT/HCPCS: 70450; 72125; 73030; 73080; 96372; 99284; A9270; J2270